=== PATIENT | female | born 1945 | race Caucasian/White ===

== ENCOUNTER 2017-07-20 11:22 | Outpatient (RCR) | payer MEDICARE, SELFPAY ==
[2017-07-20 14:32] LABS: Absolute Neutrophil Count 4.2 X10^3/uL (2.0-7.7); Basophil# 0.02 X10^3/uL; Basophil% 0.3 % (0-1); Eosinophil# 0.18 X10^3/uL; Hematocrit 38.8 % (37-47); Hemoglobin 12.3 g/dl (12.0-15.0); Lymphocyte % 18.1 % (19-41); Mean Corp Hgb Conc 31.7 g/gl (32-36); Mean Corpuscular Hgb 32.8 pg (27.0-32.0); Mean Corpuscular Volume 103.5 fL (81-99); Mean Platelet Vol. 9.4 fl (6.2-12.0); Monocyte# 0.61 X10^3/uL; Neutrophil # 4.16 X10^3/uL (2.7-7.7); Neutrophil % 68.4 % (47-70); Platelet Count 278 K/mm3 (150-450); RBC Distribution Width CV 14.7 % (11.6-14.6); RBC Distribution Width SD 56.1 fl (35.1-43.9); Red Blood Count 3.75 M/mm3 (4.2-5.4); White Blood Count 6.1 K/mm3 (4.4-11.0)
[2017-07-20 14:35] LABS: POSITIVE COUNT NO; POSITIVE DIFFERENTIAL NO; POSITIVE MORPHOLOGY NO
[2017-07-20 14:58] LABS: ALB/GLOB Ratio 0.8 RATIO (0.9-2.4); AST(SGOT) 19 U/L (15-37); Alanine Aminotransfer ALT/SGPT 17 U/L (13-56); Albumin, Serum 3.2 g/dL (3.2-5.0); Alkaline Phosphatase 61 U/L (45-117); Anion Gap 8 (5-15); BUN 12 mg/dL (7-18); BUN/Creat Ratio 12.2 RATIO (10-20); Calcium,Total 8.7 mg/dL (8.5-10.1); Chloride 100 mmol/L (98-107); Creatinine, Serum 0.98 mg/dL (0.55-1.02); EST Glomerular Filtration Rate 59 mL/min (>60); Est Glom Filt Rate - Afr Amer 72 mL/min (>60); Globulin 4.2 g/dL (2.2-4.2); Glucose 97 mg/dL (74-106); Potassium 3.4 mmol/L (3.5-5.1); Protein, Total 7.4 g/dL (6.4-8.2); Sodium Level 138 mmol/L (136-145)
== END 2017-07-20 12:00 | disposition home or self-care (01) ==
LOC: MTLAB 11:22
PROVIDERS: Visit Provider Internal Medicine Rheumatology
DX: M06.4 Inflammatory polyarthropathy (principal); Z79.899 Other long term (current) drug therapy; M17.0 Bilateral primary osteoarthritis of knee; M47.897 Other spondylosis, lumbosacral region; G47.33 Obstructive sleep apnea (adult) (pediatric); I48.91 Unspecified atrial fibrillation; I10 Essential (primary) hypertension
CPT/HCPCS: 36415; 80053; 85025

== ENCOUNTER → 2017-10-25 11:29 | Outpatient (CLI) | payer MEDICARE, SELFPAY ==
[2017-10-25 14:55] LABS: Absolute Lymphocyte Count 1.16 X10^3/ul (0.83-4.51); Absolute Neutrophil Count 4.8 X10^3/uL (2.0-7.7); Basophil# 0.02 X10^3/uL; Basophil% 0.3 % (0-1); Eosinophil# 0.22 X10^3/uL; Eosinophils% 3.2 % (0-5); Hematocrit 37.7 % (37-47); Lymphocyte # 1.16 X10^3/ul (4.0); Lymphocyte % 16.9 % (19-41); Mean Corp Hgb Conc 31.8 g/gl (32-36); Mean Corpuscular Hgb 32.4 pg (27.0-32.0); Mean Corpuscular Volume 101.9 fL (81-99); Mean Platelet Vol. 9.4 fl (6.2-12.0); Monocyte# 0.64 X10^3/uL; Monocyte% 9.3 % (0-10); Neutrophil % 70.2 % (47-70); Platelet Count 245 K/mm3 (150-450); RBC Distribution Width CV 15.2 % (11.6-14.6); White Blood Count 6.9 K/mm3 (4.4-11.0)
[2017-10-25 14:57] LABS: POSITIVE COUNT NO; POSITIVE DIFFERENTIAL NO; POSITIVE MORPHOLOGY NO
[2017-10-25 15:17] LABS: ALB/GLOB Ratio 0.8 RATIO (0.9-2.4); AST(SGOT) 18 U/L (15-37); Alanine Aminotransfer ALT/SGPT 20 U/L (13-56); Albumin, Serum 3.1 g/dL (3.2-5.0); Alkaline Phosphatase 56 U/L (45-117); Anion Gap 8 (5-15); BUN 12 mg/dL (7-18); BUN/Creat Ratio 11.5 RATIO (10-20); Chloride 103 mmol/L (98-107); Creatinine, Serum 1.04 mg/dL (0.55-1.02); EST Glomerular Filtration Rate 56 mL/min (>60); Est Glom Filt Rate - Afr Amer 67 mL/min (>60); Globulin 4.1 g/dL (2.2-4.2); Glucose 108 mg/dL (74-106); Potassium 3.5 mmol/L (3.5-5.1); Protein, Total 7.2 g/dL (6.4-8.2); Sodium Level 142 mmol/L (136-145)
== END ==
PROVIDERS: Visit Provider Internal Medicine Rheumatology
DX: M06.4 Inflammatory polyarthropathy (principal); M17.0 Bilateral primary osteoarthritis of knee; M47.897 Other spondylosis, lumbosacral region; I48.91 Unspecified atrial fibrillation; I10 Essential (primary) hypertension; M79.7 Fibromyalgia; G47.33 Obstructive sleep apnea (adult) (pediatric); Z79.899 Other long term (current) drug therapy
CPT/HCPCS: 36415; 80053; 85025

== ENCOUNTER → 2018-01-26 12:13 | Outpatient (CLI) | payer MEDICARE, SELFPAY ==
[2018-01-26 14:18] LABS: Absolute Lymphocyte Count 1.63 X10^3/ul (0.83-4.51); Absolute Neutrophil Count 4.1 X10^3/uL (2.0-7.7); Basophil# 0.04 X10^3/uL; Basophil% 0.6 % (0-1); Eosinophil# 0.23 X10^3/uL; Eosinophils% 3.4 % (0-5); Hematocrit 37.1 % (37-47); Hemoglobin 12.5 g/dl (12.0-15.0); Lymphocyte # 1.63 X10^3/ul (4.0); Lymphocyte % 24.2 % (19-41); Mean Corp Hgb Conc 33.7 g/gl (32-36); Mean Corpuscular Hgb 33.9 pg (27.0-32.0); Mean Corpuscular Volume 100.5 fL (81-99); Mean Platelet Vol. 9.5 fl (6.2-12.0); Monocyte# 0.71 X10^3/uL; Monocyte% 10.5 % (0-10); Platelet Count 328 K/mm3 (150-450); RBC Distribution Width CV 14.7 % (11.6-14.6); RBC Distribution Width SD 52.2 fl (35.1-43.9); Red Blood Count 3.69 M/mm3 (4.2-5.4); White Blood Count 6.7 K/mm3 (4.4-11.0)
[2018-01-26 14:19] LABS: POSITIVE COUNT NO; POSITIVE DIFFERENTIAL NO; POSITIVE MORPHOLOGY NO
[2018-01-26 14:35] LABS: ALB/GLOB Ratio 0.8 RATIO (0.9-2.4); AST(SGOT) 15 U/L (15-37); Alanine Aminotransfer ALT/SGPT 21 U/L (13-56); Albumin, Serum 3.2 g/dL (3.2-5.0); Alkaline Phosphatase 53 U/L (45-117); Anion Gap 10 (5-15); BUN 11 mg/dL (7-18); BUN/Creat Ratio 11.3 RATIO (10-20); Calcium,Total 9.2 mg/dL (8.5-10.1); Chloride 102 mmol/L (98-107); Creatinine, Serum 0.97 mg/dL (0.55-1.02); EST Glomerular Filtration Rate 60 mL/min (>60); Est Glom Filt Rate - Afr Amer 73 mL/min (>60); Globulin 4.2 g/dL (2.2-4.2); Glucose 97 mg/dL (74-106); Potassium 3.5 mmol/L (3.5-5.1); Protein, Total 7.4 g/dL (6.4-8.2); Sodium Level 141 mmol/L (136-145)
== END ==
PROVIDERS: Referring Provider Internal Medicine Rheumatology; Visit Provider Internal Medicine Rheumatology
DX: M06.4 Inflammatory polyarthropathy (principal); M79.7 Fibromyalgia; M17.0 Bilateral primary osteoarthritis of knee; M47.897 Other spondylosis, lumbosacral region; I48.91 Unspecified atrial fibrillation; I10 Essential (primary) hypertension; G47.33 Obstructive sleep apnea (adult) (pediatric); Z79.899 Other long term (current) drug therapy
CPT/HCPCS: 36415; 80053; 85025

== ENCOUNTER → 2018-05-13 12:59 | Outpatient (CLI) | payer MEDICARE, SELFPAY ==
[2018-05-13 13:53] LABS: Absolute Lymphocyte Count 1.44 X10^3/ul (0.83-4.51); Absolute Neutrophil Count 4.7 X10^3/uL (2.0-7.7); Basophil# 0.03 X10^3/uL; Basophil% 0.4 % (0-1); Eosinophil# 0.28 X10^3/uL; Eosinophils% 3.9 % (0-5); Hematocrit 37.7 % (37-47); Hemoglobin 12.2 g/dl (12.0-15.0); Lymphocyte # 1.44 X10^3/ul (4.0); Lymphocyte % 20.3 % (19-41); Mean Corp Hgb Conc 32.4 g/gl (32-36); Mean Corpuscular Hgb 33.7 pg (27.0-32.0); Mean Corpuscular Volume 104.1 fL (81-99); Mean Platelet Vol. 9.5 fl (6.2-12.0); Monocyte# 0.66 X10^3/uL; Monocyte% 9.3 % (0-10); Neutrophil # 4.68 X10^3/uL (2.7-7.7); Neutrophil % 65.8 % (47-70); Platelet Count 290 K/mm3 (150-450); RBC Distribution Width SD 56.7 fl (35.1-43.9); Red Blood Count 3.62 M/mm3 (4.2-5.4); White Blood Count 7.1 K/mm3 (4.4-11.0)
[2018-05-13 13:55] LABS: POSITIVE COUNT NO; POSITIVE DIFFERENTIAL NO; POSITIVE MORPHOLOGY NO
[2018-05-13 14:17] LABS: ALB/GLOB Ratio 0.8 RATIO (0.9-2.4); AST(SGOT) 15 U/L (15-37); Alanine Aminotransfer ALT/SGPT 16 U/L (13-56); Albumin, Serum 3.3 g/dL (3.2-5.0); Alkaline Phosphatase 59 U/L (45-117); Anion Gap 6 (5-15); BUN 13 mg/dL (7-18); Calcium,Total 8.9 mg/dL (8.5-10.1); Chloride 104 mmol/L (98-107); EST Glomerular Filtration Rate 58 mL/min (>60); Est Glom Filt Rate - Afr Amer 70 mL/min (>60); Globulin 4.2 g/dL (2.2-4.2); Glucose 107 mg/dL (74-106); Potassium 4.1 mmol/L (3.5-5.1); Protein, Total 7.5 g/dL (6.4-8.2); Sodium Level 140 mmol/L (136-145)
== END ==
PROVIDERS: Referring Provider Internal Medicine Rheumatology; Visit Provider Internal Medicine Rheumatology
DX: M06.4 Inflammatory polyarthropathy (principal); M79.7 Fibromyalgia; M17.0 Bilateral primary osteoarthritis of knee; M47.897 Other spondylosis, lumbosacral region; I48.91 Unspecified atrial fibrillation; I10 Essential (primary) hypertension; G47.33 Obstructive sleep apnea (adult) (pediatric); Z79.899 Other long term (current) drug therapy
CPT/HCPCS: 36415; 80053; 85025

== ENCOUNTER → 2018-07-29 09:00 | Outpatient (CLI) | payer MEDICARE, SELFPAY ==
[2018-07-29 10:13] LABS: Absolute Lymphocyte Count 1.86 X10^3/ul (0.83-4.51); Absolute Neutrophil Count 4.2 X10^3/uL (2.0-7.7); Basophil# 0.05 X10^3/uL; Basophil% 0.7 % (0-1); Eosinophil# 0.27 X10^3/uL; Hematocrit 37.7 % (37-47); Hemoglobin 12.3 g/dl (12.0-15.0); Lymphocyte # 1.86 X10^3/ul (4.0); Lymphocyte % 27.8 % (19-41); Mean Corp Hgb Conc 32.6 g/gl (32-36); Mean Corpuscular Hgb 33.8 pg (27.0-32.0); Mean Corpuscular Volume 103.6 fL (81-99); Mean Platelet Vol. 9.8 fl (6.2-12.0); Monocyte% 4.5 % (0-10); Neutrophil # 4.18 X10^3/uL (2.7-7.7); Neutrophil % 62.7 % (47-70); POSITIVE COUNT NO; POSITIVE DIFFERENTIAL NO; POSITIVE MORPHOLOGY NO; Platelet Count 260 K/mm3 (150-450); RBC Distribution Width CV 14.7 % (11.6-14.6); RBC Distribution Width SD 55.6 fl (35.1-43.9); Red Blood Count 3.64 M/mm3 (4.2-5.4); White Blood Count 6.7 K/mm3 (4.4-11.0)
[2018-07-29 10:27] LABS: Albumin, Serum 3.3 g/dL (3.2-5.0); BUN 14 mg/dL (7-18); BUN/Creat Ratio 12.4 RATIO (10-20); Creatinine, Serum 1.13 mg/dL (0.55-1.02); EST Glomerular Filtration Rate 50 mL/min (>60); Est Glom Filt Rate - Afr Amer 61 mL/min (>60); Globulin 3.9 g/dL (2.2-4.2); Glucose 134 mg/dL (74-106); Protein, Total 7.2 g/dL (6.4-8.2)
[2018-07-29 10:28] LABS: ALB/GLOB Ratio 0.8 RATIO (0.9-2.4); AST(SGOT) 20 U/L (15-37); Alanine Aminotransfer ALT/SGPT 21 U/L (13-56); Alkaline Phosphatase 55 U/L (45-117); Anion Gap 8 (5-15); Chloride 104 mmol/L (98-107); Potassium 3.8 mmol/L (3.5-5.1); Sodium Level 143 mmol/L (136-145)
== END ==
PROVIDERS: Referring Provider Internal Medicine Rheumatology; Visit Provider Internal Medicine Rheumatology
DX: M06.4 Inflammatory polyarthropathy (principal); M17.0 Bilateral primary osteoarthritis of knee; M47.897 Other spondylosis, lumbosacral region; I48.91 Unspecified atrial fibrillation; M79.7 Fibromyalgia; I10 Essential (primary) hypertension; G47.33 Obstructive sleep apnea (adult) (pediatric); Z79.899 Other long term (current) drug therapy
CPT/HCPCS: 36415; 80053; 85025

== ENCOUNTER → 2018-09-22 13:39 | Outpatient (CLI) | payer MEDICARE, SELFPAY ==
[2018-09-22 15:45] LABS: Absolute Lymphocyte Count 1.91 X10^3/ul (0.83-4.51); Absolute Neutrophil Count 4.3 X10^3/uL (2.0-7.7); Basophil# 0.06 X10^3/uL; Basophil% 0.8 % (0-1); Eosinophil# 0.21 X10^3/uL; Eosinophils% 2.9 % (0-5); Hematocrit 36.9 % (37-47); Lymphocyte # 1.91 X10^3/ul (4.0); Lymphocyte % 26.7 % (19-41); Mean Corp Hgb Conc 32.5 g/gl (32-36); Mean Corpuscular Hgb 33.3 pg (27.0-32.0); Mean Corpuscular Volume 102.5 fL (81-99); Mean Platelet Vol. 9.4 fl (6.2-12.0); Monocyte# 0.64 X10^3/uL; Neutrophil # 4.32 X10^3/uL (2.7-7.7); Neutrophil % 60.5 % (47-70); Platelet Count 252 K/mm3 (150-450); RBC Distribution Width CV 14.8 % (11.6-14.6); RBC Distribution Width SD 54.7 fl (35.1-43.9); White Blood Count 7.2 K/mm3 (4.4-11.0)
[2018-09-22 15:53] LABS: POSITIVE COUNT NO; POSITIVE DIFFERENTIAL NO; POSITIVE MORPHOLOGY NO
[2018-09-22 16:06] LABS: ALB/GLOB Ratio 0.7 RATIO (0.9-2.4); AST(SGOT) 14 U/L (15-37); Alanine Aminotransfer ALT/SGPT 21 U/L (13-56); Alkaline Phosphatase 56 U/L (45-117); Anion Gap 5 (5-15); BUN 16 mg/dL (7-18); BUN/Creat Ratio 15.4 RATIO (10-20); Calcium,Total 8.9 mg/dL (8.5-10.1); Chloride 103 mmol/L (98-107); Creatinine, Serum 1.04 mg/dL (0.55-1.02); EST Glomerular Filtration Rate 56 mL/min (>60); Est Glom Filt Rate - Afr Amer 67 mL/min (>60); Globulin 4.1 g/dL (2.2-4.2); Glucose 80 mg/dL (74-106); Potassium 3.8 mmol/L (3.5-5.1); Protein, Total 7.1 g/dL (6.4-8.2); Sodium Level 141 mmol/L (136-145)
== END ==
PROVIDERS: Referring Provider Internal Medicine Rheumatology; Visit Provider Internal Medicine Rheumatology
DX: M06.4 Inflammatory polyarthropathy (principal); M79.7 Fibromyalgia; M17.0 Bilateral primary osteoarthritis of knee; M47.897 Other spondylosis, lumbosacral region; I48.91 Unspecified atrial fibrillation; I10 Essential (primary) hypertension; G47.33 Obstructive sleep apnea (adult) (pediatric); Z79.899 Other long term (current) drug therapy
CPT/HCPCS: 36415; 80053; 85025

== ENCOUNTER → 2018-12-19 10:52 | Outpatient (CLI) | payer MEDICARE, SELFPAY ==
[2018-12-19 12:16] LABS: Absolute Lymphocyte Count 1.12 X10^3/uL (0.83-4.51); Absolute Neutrophil Count 5.4 X10^3/uL (2.0-7.7); Basophil# 0.05 X10^3/uL; Basophil% 0.7 % (0-1); Eosinophil# 0.22 X10^3/uL; Hematocrit 36.5 % (37-47); Hemoglobin 12.4 g/dL (12.0-15.0); Lymphocyte # 1.12 X10^3/ul (4.0); Lymphocyte % 15.3 % (19-41); Mean Corpuscular Hgb 35.2 pg (27.0-32.0); Mean Corpuscular Volume 103.7 fL (81-99); Mean Platelet Vol. 9.5 fl (6.2-12.0); Monocyte# 0.55 X10^3/uL; Monocyte% 7.5 % (0-10); NRBC Flagged by Analyzer 0 % (0-5); Neutrophil # 5.36 X10^3/uL (2.7-7.7); Neutrophil % 73.2 % (47-70); Platelet Count 235 K/mm3 (150-450); RBC Distribution Width CV 13.8 % (11.6-14.6); RBC Distribution Width SD 52.9 fl (35.1-43.9); Red Blood Count 3.52 M/mm3 (4.2-5.4); White Blood Count 7.3 K/mm3 (4.4-11.0)
[2018-12-19 12:38] LABS: ALB/GLOB Ratio 0.8 RATIO (0.9-2.4); AST(SGOT) 15 U/L (15-37); Alanine Aminotransfer ALT/SGPT 16 U/L (13-56); Albumin, Serum 3.2 g/dL (3.2-5.0); Alkaline Phosphatase 62 U/L (45-117); Anion Gap 3 (5-15); BUN 17 mg/dL (7-18); BUN/Creat Ratio 16.5 RATIO (10-20); Calcium,Total 8.8 mg/dL (8.5-10.1); Chloride 106 mmol/L (98-107); Creatinine, Serum 1.03 mg/dL (0.55-1.02); EST Glomerular Filtration Rate 56 mL/min (>60); Est Glom Filt Rate - Afr Amer 68 mL/min (>60); Globulin 4.2 g/dL (2.2-4.2); Glucose 102 mg/dL (74-106); Potassium 3.6 mmol/L (3.5-5.1); Protein, Total 7.4 g/dL (6.4-8.2); Sodium Level 141 mmol/L (136-145)
== END ==
PROVIDERS: Family Provider Internal Medicine Cardiovascular Disease; PCP Internal Medicine Cardiovascular Disease; Referring Provider Internal Medicine Rheumatology; Visit Provider Internal Medicine Rheumatology
DX: M06.4 Inflammatory polyarthropathy (principal); M17.0 Bilateral primary osteoarthritis of knee; M47.897 Other spondylosis, lumbosacral region; M79.7 Fibromyalgia; I48.91 Unspecified atrial fibrillation; I10 Essential (primary) hypertension; G47.33 Obstructive sleep apnea (adult) (pediatric); Z79.899 Other long term (current) drug therapy
CPT/HCPCS: 36415; 80053; 85025

== ENCOUNTER → 2019-03-23 12:35 | Outpatient (CLI) | payer MEDICARE, SELFPAY ==
[2019-03-23 15:30] LABS: Absolute Lymphocyte Count 1.78 X10^3/uL (0.83-4.51); Absolute Neutrophil Count 5.8 X10^3/uL (2.0-7.7); Basophil# 0.05 X10^3/uL; Basophil% 0.6 % (0-1); Eosinophil# 0.17 X10^3/uL; Hematocrit 37.3 % (37-47); Lymphocyte # 1.78 X10^3/ul (4.0); Lymphocyte % 20.8 % (19-41); Mean Corp Hgb Conc 32.2 g/dL (32-36); Mean Corpuscular Hgb 33.8 pg (27.0-32.0); Mean Corpuscular Volume 105.1 fL (81-99); Mean Platelet Vol. 9.9 fl (6.2-12.0); Monocyte# 0.71 X10^3/uL; Monocyte% 8.3 % (0-10); NRBC Flagged by Analyzer 0.4 % (0-5); Neutrophil % 67.7 % (47-70); Platelet Count 324 K/mm3 (150-450); RBC Distribution Width CV 14.6 % (11.6-14.6); RBC Distribution Width SD 56.6 fl (35.1-43.9); Red Blood Count 3.55 M/mm3 (4.2-5.4); White Blood Count 8.6 K/mm3 (4.4-11.0)
[2019-03-23 15:57] LABS: ALB/GLOB Ratio 0.9 RATIO (0.9-2.4); AST(SGOT) 19 U/L (15-37); Alanine Aminotransfer ALT/SGPT 20 U/L (13-56); Albumin, Serum 3.4 g/dL (3.2-5.0); Alkaline Phosphatase 55 U/L (45-117); Anion Gap 8 (5-15); BUN 15 mg/dL (7-18); BUN/Creat Ratio 15.2 RATIO (10-20); Calcium,Total 9.1 mg/dL (8.5-10.1); Chloride 101 mmol/L (98-107); Creatinine, Serum 0.99 mg/dL (0.55-1.02); EST Glomerular Filtration Rate 59 mL/min (>60); Est Glom Filt Rate - Afr Amer 71 mL/min (>60); Globulin 3.9 g/dL (2.2-4.2); Glucose 77 mg/dL (74-106); Potassium 3.5 mmol/L (3.5-5.1); Protein, Total 7.3 g/dL (6.4-8.2); Sodium Level 140 mmol/L (136-145)
== END ==
PROVIDERS: Family Provider Internal Medicine Cardiovascular Disease; PCP Internal Medicine Cardiovascular Disease; Referring Provider Internal Medicine Rheumatology; Visit Provider Internal Medicine Rheumatology
DX: M06.4 Inflammatory polyarthropathy (principal); M17.0 Bilateral primary osteoarthritis of knee; M47.897 Other spondylosis, lumbosacral region; I48.91 Unspecified atrial fibrillation; I10 Essential (primary) hypertension; G47.33 Obstructive sleep apnea (adult) (pediatric); M79.7 Fibromyalgia; Z79.899 Other long term (current) drug therapy
CPT/HCPCS: 36415; 80053; 85025

== ENCOUNTER → 2019-06-14 12:39 | Outpatient (CLI) | payer MEDICARE, SELFPAY ==
[2019-06-14 14:14] LABS: Absolute Neutrophil Count 5.7 X10^3/uL (2.0-7.7); Basophil# 0.05 X10^3/uL; Basophil% 0.6 % (0-1); Eosinophil# 0.23 X10^3/uL; Eosinophils% 2.8 % (0-5); Hematocrit 39.2 % (37-47); Lymphocyte % 20.4 % (19-41); Mean Corp Hgb Conc 33.2 g/dL (32-36); Mean Corpuscular Hgb 34.3 pg (27.0-32.0); Mean Corpuscular Volume 103.4 fL (81-99); Mean Platelet Vol. 9.4 fl (6.2-12.0); Monocyte# 0.59 X10^3/uL; Monocyte% 7.1 % (0-10); NRBC Flagged by Analyzer 0.2 % (0-5); Neutrophil # 5.74 X10^3/uL (2.7-7.7); Neutrophil % 68.7 % (47-70); Platelet Count 298 K/mm3 (150-450); RBC Distribution Width CV 14.5 % (11.6-14.6); RBC Distribution Width SD 55.4 fl (35.1-43.9); Red Blood Count 3.79 M/mm3 (4.2-5.4); White Blood Count 8.3 K/mm3 (4.4-11.0)
[2019-06-14 14:28] LABS: ALB/GLOB Ratio 0.8 RATIO (0.9-2.4); AST(SGOT) 21 U/L (15-37); Alanine Aminotransfer ALT/SGPT 25 U/L (13-56); Albumin, Serum 3.3 g/dL (3.2-5.0); Alkaline Phosphatase 62 U/L (45-117); Anion Gap 4 (5-15); BUN 18 mg/dL (7-18); Calcium,Total 9.3 mg/dL (8.5-10.1); Chloride 103 mmol/L (98-107); Creatinine, Serum 1.06 mg/dL (0.55-1.02); EST Glomerular Filtration Rate 54 mL/min (>60); Est Glom Filt Rate - Afr Amer 66 mL/min (>60); Globulin 4.2 g/dL (2.2-4.2); Glucose 81 mg/dL (74-106); Potassium 3.7 mmol/L (3.5-5.1); Protein, Total 7.5 g/dL (6.4-8.2); Sodium Level 139 mmol/L (136-145)
== END ==
PROVIDERS: PCP Internal Medicine Cardiovascular Disease; Referring Provider Internal Medicine Rheumatology; Visit Provider Internal Medicine Rheumatology
DX: M06.4 Inflammatory polyarthropathy (principal); Z79.899 Other long term (current) drug therapy; M79.7 Fibromyalgia; M25.512 Pain in left shoulder; M17.0 Bilateral primary osteoarthritis of knee; M47.897 Other spondylosis, lumbosacral region; G47.33 Obstructive sleep apnea (adult) (pediatric); I48.91 Unspecified atrial fibrillation; I10 Essential (primary) hypertension
CPT/HCPCS: 36415; 80053; 85025

== ENCOUNTER → 2019-09-06 11:41 | Outpatient (CLI) | payer MEDICARE, SELFPAY ==
[2019-09-06 15:30] LABS: Absolute Lymphocyte Count 1.43 X10^3/uL (0.83-4.51); Absolute Neutrophil Count 6.9 X10^3/uL (2.0-7.7); Basophil# 0.03 X10^3/uL; Basophil% 0.3 % (0-1); Eosinophil# 0.14 X10^3/uL; Eosinophils% 1.5 % (0-5); Hematocrit 39.1 % (37-47); Hemoglobin 12.9 g/dL (12.0-15.0); Lymphocyte # 1.43 X10^3/ul (4.0); Lymphocyte % 15.2 % (19-41); Mean Corpuscular Hgb 34.7 pg (27.0-32.0); Mean Corpuscular Volume 105.1 fL (81-99); Mean Platelet Vol. 9.9 fl (6.2-12.0); Monocyte# 0.86 X10^3/uL; Monocyte% 9.1 % (0-10); NRBC Flagged by Analyzer 0 % (0-5); Neutrophil # 6.92 X10^3/uL (2.7-7.7); Neutrophil % 73.5 % (47-70); Platelet Count 287 K/mm3 (150-450); RBC Distribution Width CV 13.8 % (11.6-14.6); RBC Distribution Width SD 52.9 fl (35.1-43.9); Red Blood Count 3.72 M/mm3 (4.2-5.4); White Blood Count 9.4 K/mm3 (4.4-11.0)
[2019-09-06 15:58] LABS: ALB/GLOB Ratio 0.7 RATIO (0.9-2.4); AST(SGOT) 16 U/L (15-37); Alanine Aminotransfer ALT/SGPT 19 U/L (13-56); Albumin, Serum 3.2 g/dL (3.2-5.0); Alkaline Phosphatase 59 U/L (45-117); Anion Gap 7 (5-15); BUN 16 mg/dL (7-18); BUN/Creat Ratio 13.8 RATIO (10-20); Calcium,Total 9.3 mg/dL (8.5-10.1); Chloride 100 mmol/L (98-107); Creatinine, Serum 1.16 mg/dL (0.55-1.02); EST Glomerular Filtration Rate 49 mL/min (>60); Est Glom Filt Rate - Afr Amer 59 mL/min (>60); Globulin 4.3 g/dL (2.2-4.2); Glucose 81 mg/dL (74-106); Potassium 3.2 mmol/L (3.5-5.1); Protein, Total 7.5 g/dL (6.4-8.2); Sodium Level 138 mmol/L (136-145)
== END ==
PROVIDERS: Referring Provider Internal Medicine Rheumatology; Visit Provider Internal Medicine Rheumatology
DX: M06.4 Inflammatory polyarthropathy (principal); M79.7 Fibromyalgia; M25.512 Pain in left shoulder; M17.0 Bilateral primary osteoarthritis of knee; M47.897 Other spondylosis, lumbosacral region; G47.33 Obstructive sleep apnea (adult) (pediatric); I48.91 Unspecified atrial fibrillation; I10 Essential (primary) hypertension; Z79.899 Other long term (current) drug therapy
CPT/HCPCS: 36415; 80053; 85025

== ENCOUNTER → 2019-11-23 11:25 | Outpatient (CLI) | payer MEDICARE, SELFPAY ==
[2019-11-23 15:06] LABS: Absolute Neutrophil Count 4.6 X10^3/uL (2.0-7.7); Basophil# 0.05 X10^3/uL; Basophil% 0.7 % (0-1); Eosinophil# 0.22 X10^3/uL; Hematocrit 38.1 % (37-47); Hemoglobin 12.1 g/dL (12.0-15.0); Lymphocyte % 24.9 % (19-41); Mean Corp Hgb Conc 31.8 g/dL (32-36); Mean Corpuscular Hgb 33.3 pg (27.0-32.0); Mean Platelet Vol. 9.9 fl (6.2-12.0); Monocyte# 0.56 X10^3/uL; Monocyte% 7.7 % (0-10); NRBC Flagged by Analyzer 0.3 % (0-5); Neutrophil # 4.55 X10^3/uL (2.7-7.7); Neutrophil % 62.9 % (47-70); Platelet Count 319 K/mm3 (150-450); RBC Distribution Width SD 58.4 fl (35.1-43.9); Red Blood Count 3.63 M/mm3 (4.2-5.4); White Blood Count 7.2 K/mm3 (4.4-11.0)
[2019-11-23 15:24] LABS: ALB/GLOB Ratio 0.8 RATIO (0.9-2.4); AST(SGOT) 12 U/L (15-37); Alanine Aminotransfer ALT/SGPT 17 U/L (13-56); Albumin, Serum 3.1 g/dL (3.2-5.0); Alkaline Phosphatase 52 U/L (45-117); Anion Gap 5 (5-15); BUN 13 mg/dL (7-18); BUN/Creat Ratio 12.4 RATIO (10-20); Chloride 106 mmol/L (98-107); Creatinine, Serum 1.05 mg/dL (0.55-1.02); EST Glomerular Filtration Rate 55 mL/min (>60); Est Glom Filt Rate - Afr Amer 66 mL/min (>60); Globulin 3.9 g/dL (2.2-4.2); Glucose 122 mg/dL (74-106); Potassium 3.4 mmol/L (3.5-5.1); Sodium Level 140 mmol/L (136-145)
== END ==
PROVIDERS: Visit Provider Internal Medicine Rheumatology
DX: M06.4 Inflammatory polyarthropathy (principal); M79.7 Fibromyalgia; M25.512 Pain in left shoulder; M17.0 Bilateral primary osteoarthritis of knee; M47.897 Other spondylosis, lumbosacral region; G47.33 Obstructive sleep apnea (adult) (pediatric); I48.91 Unspecified atrial fibrillation; I10 Essential (primary) hypertension; Z79.899 Other long term (current) drug therapy
CPT/HCPCS: 36415; 80053; 85025

== ENCOUNTER → 2020-02-08 12:18 | Outpatient (CLI) | payer MEDICARE, SELFPAY ==
[2020-02-08 15:26] LABS: ALB/GLOB Ratio 0.8 RATIO (0.9-2.4); AST(SGOT) 17 U/L (15-37); Alanine Aminotransfer ALT/SGPT 19 U/L (13-56); Albumin, Serum 3.2 g/dL (3.2-5.0); Alkaline Phosphatase 55 U/L (45-117); Anion Gap 6 (5-15); BUN 18 mg/dL (7-18); BUN/Creat Ratio 16.8 RATIO (10-20); Calcium,Total 9.1 mg/dL (8.5-10.1); Chloride 105 mmol/L (98-107); Creatinine, Serum 1.07 mg/dL (0.55-1.02); EST Glomerular Filtration Rate 54 mL/min (>60); Est Glom Filt Rate - Afr Amer 65 mL/min (>60); Globulin 4.1 g/dL (2.2-4.2); Glucose 104 mg/dL (74-106); Potassium 3.5 mmol/L (3.5-5.1); Protein, Total 7.3 g/dL (6.4-8.2); Sodium Level 141 mmol/L (136-145)
[2020-02-08 17:38] LABS: Absolute Lymphocyte Count 1.62 X10^3/uL (0.83-4.51); Absolute Neutrophil Count 5.6 X10^3/uL (2.0-7.7); Basophil# 0.07 X10^3/uL; Basophil% 0.9 % (0-1); Hematocrit 39.1 % (37-47); Hemoglobin 12.9 g/dL (12.0-15.0); Lymphocyte # 1.62 X10^3/ul (4.0); Lymphocyte % 20.3 % (19-41); Mean Corpuscular Hgb 34.2 pg (27.0-32.0); Mean Corpuscular Volume 103.7 fL (81-99); Mean Platelet Vol. 10.1 fl (6.2-12.0); Monocyte# 0.66 X10^3/uL; Monocyte% 8.3 % (0-10); NRBC Flagged by Analyzer 0 % (0-5); Neutrophil # 5.55 X10^3/uL (2.7-7.7); Neutrophil % 69.5 % (47-70); Platelet Count 289 K/mm3 (150-450); RBC Distribution Width CV 14.5 % (11.6-14.6); RBC Distribution Width SD 55.2 fl (35.1-43.9); Red Blood Count 3.77 M/mm3 (4.2-5.4)
== END ==
PROVIDERS: Referring Provider Internal Medicine Rheumatology; Visit Provider Internal Medicine Rheumatology
DX: M06.4 Inflammatory polyarthropathy (principal); M79.7 Fibromyalgia; M25.512 Pain in left shoulder; M17.0 Bilateral primary osteoarthritis of knee; M47.897 Other spondylosis, lumbosacral region; G47.33 Obstructive sleep apnea (adult) (pediatric); I48.91 Unspecified atrial fibrillation; I10 Essential (primary) hypertension; Z79.899 Other long term (current) drug therapy
CPT/HCPCS: 36415; 80053; 85025

== ENCOUNTER → 2020-05-10 10:38 | Outpatient (CLI) | payer MEDICARE, SELFPAY ==
[2020-05-10 12:31] LABS: Absolute Lymphocyte Count 1.63 X10^3/uL (0.83-4.51); Absolute Neutrophil Count 4.8 X10^3/uL (2.0-7.7); Basophil# 0.05 X10^3/uL; Basophil% 0.7 % (0-1); Eosinophils% 2.7 % (0-5); Hematocrit 37.7 % (37-47); Lymphocyte # 1.63 X10^3/ul (4.0); Lymphocyte % 22.1 % (19-41); Mean Corp Hgb Conc 31.8 g/dL (32-36); Mean Corpuscular Volume 103.6 fL (81-99); Mean Platelet Vol. 9.7 fl (6.2-12.0); Monocyte# 0.68 X10^3/uL; Monocyte% 9.2 % (0-10); NRBC Flagged by Analyzer 0.3 % (0-5); Neutrophil # 4.79 X10^3/uL (2.7-7.7); Neutrophil % 64.9 % (47-70); Platelet Count 286 K/mm3 (150-450); RBC Distribution Width CV 14.1 % (11.6-14.6); RBC Distribution Width SD 53.2 fl (35.1-43.9); Red Blood Count 3.64 M/mm3 (4.2-5.4); White Blood Count 7.4 K/mm3 (4.4-11.0)
[2020-05-10 12:57] LABS: ALB/GLOB Ratio 0.9 RATIO (0.9-2.4); AST(SGOT) 16 U/L (15-37); Alanine Aminotransfer ALT/SGPT 17 U/L (13-56); Albumin, Serum 3.2 g/dL (3.2-5.0); Alkaline Phosphatase 52 U/L (45-117); Anion Gap 6 (5-15); BUN 14 mg/dL (7-18); BUN/Creat Ratio 14.1 RATIO (10-20); Calcium,Total 8.8 mg/dL (8.5-10.1); Chloride 103 mmol/L (98-107); Creatinine, Serum 0.99 mg/dL (0.55-1.02); EST Glomerular Filtration Rate 58 mL/min (>60); Est Glom Filt Rate - Afr Amer 71 mL/min (>60); Globulin 3.7 g/dL (2.2-4.2); Glucose 86 mg/dL (74-106); Potassium 3.5 mmol/L (3.5-5.1); Protein, Total 6.9 g/dL (6.4-8.2); Sodium Level 140 mmol/L (136-145)
== END ==
PROVIDERS: Referring Provider Internal Medicine Rheumatology; Visit Provider Internal Medicine Rheumatology
DX: M06.4 Inflammatory polyarthropathy (principal); M79.7 Fibromyalgia; M17.0 Bilateral primary osteoarthritis of knee; M47.897 Other spondylosis, lumbosacral region; G47.33 Obstructive sleep apnea (adult) (pediatric); I48.91 Unspecified atrial fibrillation; I10 Essential (primary) hypertension; Z79.899 Other long term (current) drug therapy
CPT/HCPCS: 36415; 80053; 85025

== ENCOUNTER → 2020-07-25 13:00 | Outpatient (CLI) | payer MEDICARE, SELFPAY ==
[2020-07-25 15:24] LABS: Absolute Lymphocyte Count 1.64 X10^3/uL (0.83-4.51); Absolute Neutrophil Count 4.1 X10^3/uL (2.0-7.7); Basophil# 0.04 X10^3/uL; Basophil% 0.6 % (0-1); Eosinophil# 0.26 X10^3/uL; Eosinophils% 3.9 % (0-5); Hematocrit 39.1 % (37-47); Hemoglobin 12.8 g/dL (12.0-15.0); Lymphocyte # 1.64 X10^3/ul (4.0); Lymphocyte % 24.6 % (19-41); Mean Corp Hgb Conc 32.7 g/dL (32-36); Mean Corpuscular Hgb 33.2 pg (27.0-32.0); Mean Corpuscular Volume 101.3 fL (81-99); Mean Platelet Vol. 10.5 fl (6.2-12.0); NRBC Flagged by Analyzer 0 % (0-5); Neutrophil % 61.5 % (47-70); Platelet Count 268 K/mm3 (150-450); RBC Distribution Width CV 14.3 % (11.6-14.6); RBC Distribution Width SD 52.6 fl (35.1-43.9); Red Blood Count 3.86 M/mm3 (4.2-5.4); White Blood Count 6.7 K/mm3 (4.4-11.0)
[2020-07-25 15:39] LABS: ALB/GLOB Ratio 0.8 RATIO (0.9-2.4); AST(SGOT) 29 U/L (15-37); Alanine Aminotransfer ALT/SGPT 80 U/L (13-56); Albumin, Serum 3.4 g/dL (3.2-5.0); Alkaline Phosphatase 84 U/L (45-117); Anion Gap 5 (5-15); BUN 18 mg/dL (7-18); BUN/Creat Ratio 17.5 RATIO (10-20); Calcium,Total 9.3 mg/dL (8.5-10.1); Chloride 104 mmol/L (98-107); Creatinine, Serum 1.03 mg/dL (0.55-1.02); EST Glomerular Filtration Rate 56 mL/min (>60); Est Glom Filt Rate - Afr Amer 68 mL/min (>60); Globulin 4.2 g/dL (2.2-4.2); Glucose 94 mg/dL (74-106); Potassium 3.8 mmol/L (3.5-5.1); Protein, Total 7.6 g/dL (6.4-8.2); Sodium Level 141 mmol/L (136-145)
== END ==
PROVIDERS: Referring Provider Internal Medicine Rheumatology; Visit Provider Internal Medicine Rheumatology
DX: M06.4 Inflammatory polyarthropathy (principal); M79.7 Fibromyalgia; M17.0 Bilateral primary osteoarthritis of knee; M47.897 Other spondylosis, lumbosacral region; G47.33 Obstructive sleep apnea (adult) (pediatric); I48.91 Unspecified atrial fibrillation; I10 Essential (primary) hypertension; Z79.899 Other long term (current) drug therapy
CPT/HCPCS: 36415; 80053; 85025

== ENCOUNTER → 2020-08-22 13:38 | Outpatient (CLI) | payer MEDICARE, SELFPAY ==
[2020-08-22 15:48] LABS: ALB/GLOB Ratio 0.8 RATIO (0.9-2.4); AST(SGOT) 16 U/L (15-37); Alanine Aminotransfer ALT/SGPT 18 U/L (13-56); Albumin, Serum 3.4 g/dL (3.2-5.0); Alkaline Phosphatase 56 U/L (45-117); Anion Gap 5 (5-15); BUN 16 mg/dL (7-18); BUN/Creat Ratio 15.2 RATIO (10-20); Calcium,Total 9.5 mg/dL (8.5-10.1); Chloride 103 mmol/L (98-107); Creatinine, Serum 1.05 mg/dL (0.55-1.02); EST Glomerular Filtration Rate 55 mL/min (>60); Est Glom Filt Rate - Afr Amer 66 mL/min (>60); Globulin 4.1 g/dL (2.2-4.2); Glucose 94 mg/dL (74-106); Potassium 3.8 mmol/L (3.5-5.1); Protein, Total 7.5 g/dL (6.4-8.2); Sodium Level 139 mmol/L (136-145)
== END ==
PROVIDERS: PCP Family Medicine Sports Medicine; Referring Provider Internal Medicine Rheumatology; Visit Provider Internal Medicine Rheumatology
DX: M06.4 Inflammatory polyarthropathy (principal); M79.7 Fibromyalgia; M17.0 Bilateral primary osteoarthritis of knee; M47.897 Other spondylosis, lumbosacral region; G47.33 Obstructive sleep apnea (adult) (pediatric); I48.91 Unspecified atrial fibrillation; I10 Essential (primary) hypertension; Z79.899 Other long term (current) drug therapy
CPT/HCPCS: 36415; 80053

== ENCOUNTER → 2020-08-26 09:25 | Outpatient (CLI) | payer MEDICARE, SELFPAY ==
--- NOTE | 2020-08-26 09:29 | US_ITS ---
STUDY: ABDOMINAL ULTRASOUND - RIGHT UPPER QUADRANT REASON FOR VISIT: Female, 75 years old ELEVATED LIVER ENZYMES TECHNIQUE: Ultrasound evaluation of the right upper quadrant was performed with real-time and static delong-scale imaging. TECHNICAL QUALITY: Limited. Examination limited due to a combination of factors including obesity and bowel gas. COMPARISON: None. FINDINGS: Liver: The liver measures 14.1 cm. There is increased echogenicity consistent with fatty infiltration. The bile ducts are within normal limits. There is hepatic color flow. The direction of portal flow is hepatopetal. There is no demonstrated mass lesion. Gallbladder: There is a contracted gallbladder. The gallbladder wall measures 3 mm. There is a negative sonographic Rivas''s sign. There is no pericholecystic fluid. There are multiple echogenic structures within the gallbladder, consistent with multiple gallstones. Common Bile Duct (C.B.D.): The common bile duct measures 3 mm. Pancreas: Normal size of the head, body and tail of the pancreas. There is normal echogenicity of the pancreas. There is a 1.4 cm x 1 cm x 1.1cm cyst in the body of the pancreas. Right Kidney: Normal size of the right kidney. The right kidney measures 9.8 cm x 4.8 cm x 4.9 cm. Normal renal cortex. The right cortex measures 1 cm. There is no demonstrated renal mass or cyst. There is no right hydronephrosis. US/Liver IMPRESSION: Fatty infiltration of the liver. Contracted stone filled gallbladder. Electronically Signed: Royer Shah MD at 10:39 EDT , Service support ,
== END ==
PROVIDERS: PCP Family Medicine Sports Medicine; Referring Provider Internal Medicine Rheumatology; Visit Provider Internal Medicine Rheumatology
DX: M06.4 Inflammatory polyarthropathy (principal); M79.7 Fibromyalgia; M17.0 Bilateral primary osteoarthritis of knee; M47.897 Other spondylosis, lumbosacral region; G47.33 Obstructive sleep apnea (adult) (pediatric); I48.91 Unspecified atrial fibrillation; I10 Essential (primary) hypertension; Z79.899 Other long term (current) drug therapy
CPT/HCPCS: 76705

== ENCOUNTER → 2020-09-02 11:44 | Outpatient (CLI) | payer MEDICARE, SELFPAY ==
[2020-09-02 15:41] LABS: Erythrocyte Sedimentation Rate 6 mm/hr (0-30)
== END ==
PROVIDERS: PCP Family Medicine Sports Medicine; Referring Provider Internal Medicine Rheumatology; Visit Provider Internal Medicine Rheumatology
DX: M06.4 Inflammatory polyarthropathy (principal); M79.7 Fibromyalgia; M17.0 Bilateral primary osteoarthritis of knee; M47.897 Other spondylosis, lumbosacral region; K76.0 Fatty (change of) liver, not elsewhere classified; G47.33 Obstructive sleep apnea (adult) (pediatric); I48.91 Unspecified atrial fibrillation; I10 Essential (primary) hypertension; Z79.899 Other long term (current) drug therapy
CPT/HCPCS: 36415; 85652; 86140

== ENCOUNTER → 2020-09-11 12:38 | Outpatient (CLI) | payer MEDICARE, SELFPAY ==
--- NOTE | 2020-09-11 12:42 | CDU_ITS ---
Reason For Study: AMAUROSIS FUGAX Rt. Velocities/BP Lt. Velocities/BP Prox CCA 103/23 cm/sec. Prox CCA 89/25 cm/sec. Mid CCA 113/28 cm/sec. Mid CCA 106/25 cm/sec. Dist CCA 88/23 cm/sec. Dist CCA 83/26 cm/sec. Prox ICA 100/19 cm/sec. Prox ICA 78/18 cm/sec. Mid ICA 49/19 cm/sec. Mid ICA 70/28 cm/sec. Dist ICA 65/31 cm/sec. Dist ICA 69/32 cm/sec. Rt. ICA/CCA = 1.0. Lt. ICA/CCA = .9. Prox ECA 94/20 cm/sec. Prox ECA 70/13 cm/sec. Rt. Vert. 40/14 cm/sec. Lt. Vert. 60/24 cm/sec. Right Extracranial There is homogeneous, smooth atherosclerotic plaque noted in the right common carotid artery. There is no significant atherosclerotic plaque noted in the right internal carotid artery. The right internal carotid artery is very tortuous. There is no significant atherosclerotic plaque noted in the right external carotid artery. The right external carotid artery is not well visualized. Antegrade flow is noted in the right vertebral artery. Left Extracranial There is heterogeneous, smooth atherosclerotic plaque noted in the left common carotid artery. There is no significant atherosclerotic plaque noted in the left internal carotid artery. The left internal carotid artery is very tortuous. There is heterogeneous, irregular atherosclerotic plaque noted in the left external carotid artery. Antegrade flow is noted in the left vertebral artery. There is heterogeneous, irregular atherosclerotic plaque noted in the left bulb. Procedure Carotid Duplex [id number]. The study was technically difficult. Exam performed in department. VL/Carotid Duplex Ultrasound Interpretation Summary No hemodynamically significant plaque proximal right internal carotid artery wi th less than 50% stenosis Less than 50% stenosis right external carotid artery No hemodynamically significant plaque left internal carotid artery with less th an 50% stenosis Less than 50% stenosis left external carotid artery Bilateral internal carotid arteries are noted to be tortuous Mild irregular plaque left carotid bulb Patent and antegrade vertebrals bilaterally Ordering Physician: Bull Rutledge Referring Physician: HARRIET MCCALLUM Performed By: Sarita Dennis, ZOYA, RVT
== END ==
PROVIDERS: PCP Family Medicine Sports Medicine; Referring Provider Ophthalmology; Visit Provider Ophthalmology
DX: G45.3 Amaurosis fugax (principal)
CPT/HCPCS: 93880

== ENCOUNTER → 2020-10-04 10:30 | Outpatient (CLI) | payer MEDICARE, SELFPAY ==
[2020-10-04 12:34] LABS: ALB/GLOB Ratio 0.8 RATIO (0.9-2.4); AST(SGOT) 14 U/L (15-37); Alanine Aminotransfer ALT/SGPT 20 U/L (13-56); Albumin, Serum 3.1 g/dL (3.2-5.0); Alkaline Phosphatase 52 U/L (45-117); Anion Gap 6 (5-15); BUN 13 mg/dL (7-18); BUN/Creat Ratio 11.7 RATIO (10-20); Calcium,Total 8.9 mg/dL (8.5-10.1); Chloride 103 mmol/L (98-107); Creatinine, Serum 1.11 mg/dL (0.55-1.02); EST Glomerular Filtration Rate 51 mL/min (>60); Est Glom Filt Rate - Afr Amer 62 mL/min (>60); Globulin 3.8 g/dL (2.2-4.2); Glucose 100 mg/dL (74-106); Potassium 3.7 mmol/L (3.5-5.1); Protein, Total 6.9 g/dL (6.4-8.2); Sodium Level 140 mmol/L (136-145)
== END ==
PROVIDERS: PCP Family Medicine Sports Medicine; Referring Provider Internal Medicine Rheumatology; Visit Provider Internal Medicine Rheumatology
DX: M06.4 Inflammatory polyarthropathy (principal); M79.7 Fibromyalgia; M17.0 Bilateral primary osteoarthritis of knee; M47.897 Other spondylosis, lumbosacral region; K76.0 Fatty (change of) liver, not elsewhere classified; G47.33 Obstructive sleep apnea (adult) (pediatric); I48.91 Unspecified atrial fibrillation; I10 Essential (primary) hypertension; Z79.899 Other long term (current) drug therapy
CPT/HCPCS: 36415; 80053

== ENCOUNTER → 2020-11-29 13:14 | Outpatient (CLI) | payer MEDICARE, SELFPAY ==
[2020-11-29 15:01] LABS: Absolute Lymphocyte Count 1.39 X10^3/uL (0.83-4.51); Absolute Neutrophil Count 5.2 X10^3/uL (2.0-7.7); Basophil# 0.05 X10^3/uL; Basophil% 0.6 % (0-1); Eosinophil# 0.53 X10^3/uL; Eosinophils% 6.6 % (0-5); Hematocrit 41.1 % (37-47); Hemoglobin 13.7 g/dL (12.0-15.0); Lymphocyte # 1.39 X10^3/ul (0.83-4.51); Lymphocyte % 17.4 % (19-41); Mean Corp Hgb Conc 33.3 g/dL (32-36); Mean Corpuscular Hgb 33.3 pg (27.0-32.0); Mean Corpuscular Volume 99.8 fL (81-99); Mean Platelet Vol. 10.2 fl (6.2-12.0); Monocyte# 0.78 X10^3/uL; Monocyte% 9.8 % (0-10); NRBC Flagged by Analyzer 0.3 % (0-5); Neutrophil # 5.18 X10^3/uL (2.7-7.7); Neutrophil % 65.1 % (47-70); Platelet Count 273 K/mm3 (150-450); RBC Distribution Width CV 14.5 % (11.6-14.6); RBC Distribution Width SD 52.6 fl (35.1-43.9); Red Blood Count 4.12 M/mm3 (4.2-5.4)
[2020-11-29 15:19] LABS: ALB/GLOB Ratio 0.8 RATIO (0.9-2.4); AST(SGOT) 18 U/L (15-37); Alanine Aminotransfer ALT/SGPT 25 U/L (13-56); Albumin, Serum 3.3 g/dL (3.2-5.0); Alkaline Phosphatase 56 U/L (45-117); Anion Gap 7 (5-15); BUN 18 mg/dL (7-18); BUN/Creat Ratio 16.5 RATIO (10-20); Calcium,Total 9.1 mg/dL (8.5-10.1); Chloride 103 mmol/L (98-107); Creatinine, Serum 1.09 mg/dL (0.55-1.02); EST Glomerular Filtration Rate 52 mL/min (>60); Est Glom Filt Rate - Afr Amer 63 mL/min (>60); Globulin 3.9 g/dL (2.2-4.2); Glucose 106 mg/dL (74-106); Potassium 3.7 mmol/L (3.5-5.1); Protein, Total 7.2 g/dL (6.4-8.2); Sodium Level 141 mmol/L (136-145)
== END ==
PROVIDERS: PCP Family Medicine Sports Medicine; Referring Provider Internal Medicine Rheumatology; Visit Provider Internal Medicine Rheumatology
DX: M06.4 Inflammatory polyarthropathy (principal); M79.7 Fibromyalgia; M17.0 Bilateral primary osteoarthritis of knee; M47.897 Other spondylosis, lumbosacral region; K76.0 Fatty (change of) liver, not elsewhere classified; G47.33 Obstructive sleep apnea (adult) (pediatric); I48.91 Unspecified atrial fibrillation; I10 Essential (primary) hypertension; E88.41 MELAS syndrome; Z79.899 Other long term (current) drug therapy
CPT/HCPCS: 36415; 80053; 85025

== ENCOUNTER → 2021-02-21 12:39 | Outpatient (CLI) | payer MEDICARE, SELFPAY ==
[2021-02-21 15:13] LABS: Absolute Lymphocyte Count 1.41 X10^3/uL (0.83-4.51); Absolute Neutrophil Count 5.2 X10^3/uL (2.0-7.7); Basophil# 0.04 X10^3/uL; Basophil% 0.5 % (0-1); Eosinophil# 0.07 X10^3/uL; Eosinophils% 0.9 % (0-5); Hematocrit 37.9 % (37-47); Hemoglobin 12.6 g/dL (12.0-15.0); Lymphocyte # 1.41 X10^3/ul (0.83-4.51); Lymphocyte % 18.1 % (19-41); Mean Corp Hgb Conc 33.2 g/dL (32-36); Mean Corpuscular Hgb 34.1 pg (27.0-32.0); Mean Corpuscular Volume 102.7 fL (81-99); Mean Platelet Vol. 9.8 fl (6.2-12.0); Monocyte# 1.06 X10^3/uL; Monocyte% 13.6 % (0-10); NRBC Flagged by Analyzer 0 % (0-5); Neutrophil # 5.18 X10^3/uL (2.7-7.7); Neutrophil % 66.4 % (47-70); Platelet Count 300 K/mm3 (150-450); RBC Distribution Width CV 13.5 % (11.6-14.6); RBC Distribution Width SD 50.8 fl (35.1-43.9); Red Blood Count 3.69 M/mm3 (4.2-5.4); White Blood Count 7.8 K/mm3 (4.4-11.0)
[2021-02-21 15:26] LABS: ALB/GLOB Ratio 0.6 RATIO (0.9-2.4); AST(SGOT) 15 U/L (15-37); Alanine Aminotransfer ALT/SGPT 16 U/L (13-56); Albumin, Serum 2.8 g/dL (3.2-5.0); Alkaline Phosphatase 53 U/L (45-117); Anion Gap 9 (5-15); BUN 13 mg/dL (7-18); BUN/Creat Ratio 11.1 RATIO (10-20); Calcium,Total 9.5 mg/dL (8.5-10.1); Chloride 101 mmol/L (98-107); Creatinine, Serum 1.17 mg/dL (0.55-1.02); EST Glomerular Filtration Rate 48 mL/min (>60); Est Glom Filt Rate - Afr Amer 58 mL/min (>60); Globulin 4.7 g/dL (2.2-4.2); Glucose 95 mg/dL (74-106); Potassium 3.4 mmol/L (3.5-5.1); Protein, Total 7.5 g/dL (6.4-8.2); Sodium Level 138 mmol/L (136-145)
== END ==
PROVIDERS: PCP Family Medicine Sports Medicine; Referring Provider Internal Medicine Rheumatology; Visit Provider Internal Medicine Rheumatology
DX: M06.4 Inflammatory polyarthropathy (principal); M79.7 Fibromyalgia; M17.0 Bilateral primary osteoarthritis of knee; M25.512 Pain in left shoulder; K76.0 Fatty (change of) liver, not elsewhere classified; G47.33 Obstructive sleep apnea (adult) (pediatric); I48.91 Unspecified atrial fibrillation; I10 Essential (primary) hypertension; M47.897 Other spondylosis, lumbosacral region; Z79.899 Other long term (current) drug therapy
CPT/HCPCS: 36415; 80053; 85025

== ENCOUNTER 2021-06-13 12:12 | Outpatient (CLI) | payer MEDICARE, SELFPAY ==
[2021-06-13 15:47] LABS: Thyroid Stim Hormone (TSH) 0.97 uIU/mL (0.358-3.74)
== END 2021-06-13 23:59 | disposition home or self-care (01) ==
LOC: MTLAB 12:15
PROVIDERS: PCP Family Medicine Sports Medicine; Referring Provider Internal Medicine Rheumatology; Visit Provider Internal Medicine Rheumatology
DX: M06.4 Inflammatory polyarthropathy (principal); I48.91 Unspecified atrial fibrillation; M79.7 Fibromyalgia; M17.0 Bilateral primary osteoarthritis of knee; M25.512 Pain in left shoulder; K76.0 Fatty (change of) liver, not elsewhere classified; G47.33 Obstructive sleep apnea (adult) (pediatric); I10 Essential (primary) hypertension; M47.897 Other spondylosis, lumbosacral region; Z96.653 Presence of artificial knee joint, bilateral; Z79.899 Other long term (current) drug therapy
CPT/HCPCS: 36415; 84443

== ENCOUNTER 2021-08-12 14:13 | Outpatient (CLI) | payer MEDICARE, SELFPAY ==
[2021-08-12 17:22] LABS: Absolute Lymphocyte Count 1.74 X10^3/uL (0.83-4.51); Absolute Neutrophil Count 5.1 X10^3/uL (2.0-7.7); Basophil# 0.04 X10^3/uL; Basophil% 0.5 % (0-1); Eosinophil# 0.12 X10^3/uL; Eosinophils% 1.6 % (0-5); Hematocrit 42.3 % (37-47); Hemoglobin 13.9 g/dL (12.0-15.0); Lymphocyte # 1.74 X10^3/ul (0.83-4.51); Lymphocyte % 23.7 % (19-41); Mean Corp Hgb Conc 32.9 g/dL (32-36); Mean Corpuscular Volume 100.5 fL (81-99); Mean Platelet Vol. 9.7 fl (6.2-12.0); Monocyte# 0.35 X10^3/uL; Monocyte% 4.8 % (0-10); NRBC Flagged by Analyzer 0 % (0-5); Neutrophil # 5.07 X10^3/uL (2.7-7.7); Platelet Count 289 K/mm3 (150-450); RBC Distribution Width CV 13.4 % (11.6-14.6); RBC Distribution Width SD 50.4 fl (35.1-43.9); Red Blood Count 4.21 M/mm3 (4.2-5.4); White Blood Count 7.4 K/mm3 (4.4-11.0)
[2021-08-12 17:55] LABS: ALB/GLOB Ratio 0.8 RATIO (0.9-2.4); AST(SGOT) 14 U/L (15-37); Alanine Aminotransfer ALT/SGPT 20 U/L (13-56); Albumin, Serum 3.3 g/dL (3.2-5.0); Alkaline Phosphatase 55 U/L (45-117); Anion Gap 7 (5-15); BUN 17 mg/dL (7-18); BUN/Creat Ratio 14.7 RATIO (10-20); Calcium,Total 9.7 mg/dL (8.5-10.1); Chloride 102 mmol/L (98-107); Creatinine, Serum 1.16 mg/dL (0.55-1.02); EST Glomerular Filtration Rate 49 mL/min (>60); Est Glom Filt Rate - Afr Amer 59 mL/min (>60); Globulin 4.1 g/dL (2.2-4.2); Glucose 137 mg/dL (74-106); Potassium 3.7 mmol/L (3.5-5.1); Protein, Total 7.4 g/dL (6.4-8.2); Sodium Level 138 mmol/L (136-145)
== END 2021-08-12 23:59 | disposition home or self-care (01) ==
LOC: MTLAB 14:14
PROVIDERS: PCP Family Medicine Sports Medicine; Referring Provider Internal Medicine Rheumatology; Visit Provider Internal Medicine Rheumatology
DX: M06.4 Inflammatory polyarthropathy (principal); I48.91 Unspecified atrial fibrillation; M79.7 Fibromyalgia; M17.0 Bilateral primary osteoarthritis of knee; M25.512 Pain in left shoulder; K76.0 Fatty (change of) liver, not elsewhere classified; G47.33 Obstructive sleep apnea (adult) (pediatric); I10 Essential (primary) hypertension; M47.897 Other spondylosis, lumbosacral region; Z79.899 Other long term (current) drug therapy
CPT/HCPCS: 36415; 80053; 85025

== ENCOUNTER → 2021-09-18 | Outpatient (CLI) | payer MEDICARE, SELFPAY ==
[2021-09-18 15:21] LABS: Absolute Lymphocyte Count 2.12 X10^3/uL (0.83-4.51); Absolute Neutrophil Count 5.3 X10^3/uL (2.0-7.7); Basophil# 0.06 X10^3/uL; Basophil% 0.7 % (0-1); Eosinophil# 0.06 X10^3/uL; Eosinophils% 0.7 % (0-5); Hematocrit 36.4 % (37-47); Hemoglobin 11.8 g/dL (12.0-15.0); Lymphocyte # 2.12 X10^3/ul (0.83-4.51); Lymphocyte % 25.6 % (19-41); Mean Corp Hgb Conc 32.4 g/dL (32-36); Mean Corpuscular Hgb 32.4 pg (27.0-32.0); Mean Platelet Vol. 9.6 fl (6.2-12.0); Monocyte# 0.67 X10^3/uL; Monocyte% 8.1 % (0-10); NRBC Flagged by Analyzer 0 % (0-5); Neutrophil # 5.33 X10^3/uL (2.7-7.7); Neutrophil % 64.4 % (47-70); Platelet Count 283 K/mm3 (150-450); RBC Distribution Width SD 51.4 fl (35.1-43.9); Red Blood Count 3.64 M/mm3 (4.2-5.4); White Blood Count 8.3 K/mm3 (4.4-11.0)
[2021-09-18 19:39] LABS: ALB/GLOB Ratio 0.8 RATIO (0.9-2.4); AST(SGOT) 16 U/L (15-37); Alanine Aminotransfer ALT/SGPT 20 U/L (13-56); Albumin, Serum 3.2 g/dL (3.2-5.0); Alkaline Phosphatase 55 U/L (45-117); Anion Gap 11 (5-15); BUN 16 mg/dL (7-18); BUN/Creat Ratio 14.7 RATIO (10-20); Calcium,Total 8.9 mg/dL (8.5-10.1); Chloride 105 mmol/L (98-107); Creatinine, Serum 1.09 mg/dL (0.55-1.02); EST Glomerular Filtration Rate 52 mL/min (>60); Est Glom Filt Rate - Afr Amer 63 mL/min (>60); Globulin 3.9 g/dL (2.2-4.2); Glucose 115 mg/dL (74-106); Potassium 3.8 mmol/L (3.5-5.1); Protein, Total 7.1 g/dL (6.4-8.2); Sodium Level 141 mmol/L (136-145); Thyroid Stim Hormone (TSH) 1.36 uIU/mL (0.358-3.74)
== END | disposition home or self-care (01) ==
LOC: MTLAB 13:42
PROVIDERS: PCP Family Medicine Sports Medicine; Referring Provider Internal Medicine Rheumatology; Visit Provider Internal Medicine Rheumatology
DX: M06.4 Inflammatory polyarthropathy (principal); I48.91 Unspecified atrial fibrillation; M79.7 Fibromyalgia; M17.0 Bilateral primary osteoarthritis of knee; M25.512 Pain in left shoulder; K76.0 Fatty (change of) liver, not elsewhere classified; G47.33 Obstructive sleep apnea (adult) (pediatric); I10 Essential (primary) hypertension; M47.897 Other spondylosis, lumbosacral region; Z96.653 Presence of artificial knee joint, bilateral; Z79.899 Other long term (current) drug therapy
CPT/HCPCS: 36415; 80053; 84443; 85025

== ENCOUNTER → 2021-12-10 | Outpatient (CLI) | payer MEDICARE, SELFPAY ==
[2021-12-10 15:01] LABS: Absolute Lymphocyte Count 1.45 X10^3/uL (0.83-4.51); Absolute Neutrophil Count 3.4 X10^3/uL (2.0-7.7); Basophil# 0.04 X10^3/uL; Basophil% 0.7 % (0-1); Eosinophils% 3.5 % (0-5); Hemoglobin 12.3 g/dL (12.0-15.0); Lymphocyte # 1.45 X10^3/ul (0.83-4.51); Lymphocyte % 25.5 % (19-41); Mean Corp Hgb Conc 33.2 g/dL (32-36); Mean Corpuscular Volume 99.2 fL (81-99); Mean Platelet Vol. 9.4 fl (6.2-12.0); Monocyte# 0.62 X10^3/uL; Monocyte% 10.9 % (0-10); NRBC Flagged by Analyzer 0 % (0-5); Neutrophil # 3.37 X10^3/uL (2.7-7.7); Neutrophil % 59.2 % (47-70); Platelet Count 239 K/mm3 (150-450); RBC Distribution Width CV 13.4 % (11.6-14.6); RBC Distribution Width SD 48.9 fl (35.1-43.9); Red Blood Count 3.73 M/mm3 (4.2-5.4); White Blood Count 5.7 K/mm3 (4.4-11.0)
[2021-12-10 15:24] LABS: ALB/GLOB Ratio 0.8 RATIO (0.9-2.4); AST(SGOT) 17 U/L (15-37); Alanine Aminotransfer ALT/SGPT 16 U/L (13-56); Albumin, Serum 3.1 g/dL (3.2-5.0); Alkaline Phosphatase 48 U/L (45-117); Anion Gap 5 (5-15); BUN 14 mg/dL (7-18); BUN/Creat Ratio 13.9 RATIO (10-20); Calcium,Total 9.2 mg/dL (8.5-10.1); Chloride 108 mmol/L (98-107); Creatinine, Serum 1.01 mg/dL (0.55-1.02); EST Glomerular Filtration Rate 57 mL/min (>60); Est Glom Filt Rate - Afr Amer 69 mL/min (>60); Globulin 3.7 g/dL (2.2-4.2); Glucose 93 mg/dL (74-106); Potassium 4.1 mmol/L (3.5-5.1); Protein, Total 6.8 g/dL (6.4-8.2); Sodium Level 143 mmol/L (136-145)
== END | disposition home or self-care (01) ==
LOC: MTLAB 11:19
PROVIDERS: PCP Family Medicine Sports Medicine; Referring Provider Internal Medicine Rheumatology; Visit Provider Internal Medicine Rheumatology
DX: M06.4 Inflammatory polyarthropathy (principal); I48.91 Unspecified atrial fibrillation; M79.7 Fibromyalgia; M17.0 Bilateral primary osteoarthritis of knee; M25.512 Pain in left shoulder; K76.0 Fatty (change of) liver, not elsewhere classified; G47.33 Obstructive sleep apnea (adult) (pediatric); I10 Essential (primary) hypertension; M47.897 Other spondylosis, lumbosacral region; Z96.653 Presence of artificial knee joint, bilateral; Z79.899 Other long term (current) drug therapy
CPT/HCPCS: 36415; 80053; 85025

== ENCOUNTER 2022-01-22 13:18 | Inpatient (IN) | payer MEDICARE, SELFPAY ==
[2022-01-22] VITALS (8 sets, daily range): BP systolic 117–148; BP diastolic 58–80; PULSE 66–111; RESP 16–18; TEMP 36.3–36.6; O2SAT 97–100; BMI 35.4; BMI 35.9
--- NOTE | 2022-01-22 13:30 | RAD_ITS ---
INDICATION: injury EXAMINATION/TECHNIQUE: X-RAY - RIGHT XR Ankle Min 3 Views 3 VIEWS COMPARISON: None. FINDINGS: 3 views of the right ankle were obtained. Disruption of the ankle mortise is is visualized with prominence of the medial clear space. Short oblique fracture of the distal fibula is seen. A subtle density is visualized along the medial aspect of the talus bone, irregularity visualized in the tip of the medial malleolus, findings suggestive of an avulsion fracture. The talar dome is unremarkable. Extensive bimalleolar soft tissue swelling is seen. RAD/Ankle min 3 Views IMPRESSION: Disruption of the ankle mortise is with oblique fracture of the distal fibula and suggestion of avulsion fracture of the medial malleolus. Electronically Signed: Saul Henry MD at 13:44 EDT ,
--- NOTE | 2022-01-22 14:24 | ED.VIS.LOWEX ---
HPI History of Present Illness Chief Complaint: Lower Extremity Injury Narrative Narrative: 76-year-old female presenting with right ankle pain and right knee pain. Patient states that she was walking and stepped off of a curb and rolled her right ankle falling to the ground. She denies head injury or LOC. She is unable to ambulate. She was brought to the emergency room by her friend. [facility] Home Medications apixaban 5 mg tablet (Eliquis) mg 01/22/22 [History Last Taken Unknown] clonidine HCl 0.1 mg tablet mg 01/22/22 [History Last Taken Unknown] gabapentin 100 mg capsule mg 01/22/22 [History Last Taken Unknown] leucovorin calcium 15 mg tablet mg 01/22/22 [History Last Taken Unknown] methotrexate sodium 2.5 mg tablet mg 01/22/22 [History Last Taken Unknown] metoprolol succinate 200 mg tablet,extended release 24 hr mg PO 01/22/22 [History Last Taken Unknown] potassium chloride 20 mEq tablet,extended release(part/cryst) (Klor-Con M) meq PO 01/22/22 [History Last Taken Unknown] promethazine 25 mg tablet mg 01/22/22 [History Last Taken Unknown] tramadol 50 mg tablet mg 01/22/22 [History Last Taken Unknown] Allergy/AdvReac Type Severity Reaction Status Date / Time No Known Allergies Allergy Verified 01/22/22 13:20 Social History Smoking Status: Never smoker ROS ROS ED Constitutional Constitutional ED: Denies chills or fever(s) Eyes Eyes: Denies change in vision or diplopia ENT ENT ED: Denies rhinorrhea or sore throat Cardiovascular Cardiovascular: Denies chest pain or palpitations Respiratory/Chest Respiratory/Chest: Denies cough or dyspnea Gastrointestinal Gastrointestinal: Denies abdominal pain or constipation Genitourinary Genitourinary ED: Denies dysuria or hematuria Musculoskeletal Musculoskeletal: Reports other Details: Right ankle and right knee pain Integumentary Denies abscess Neurologic Neurologic: Denies headache(s) or paresthesias EXAM Physical Exam Const Vital Signs: 01/22/22 13:20 Temperature 97.4 F L Temperature Source Temporal Pulse Rate 81 Respiratory Rate 18 Blood Pressure 117/70 Blood Pressure Mean 85 Pulse Ox 100 Oxygen Delivery Method Room Air Positive well nourished General Appearance ED: NAD HEENT Reports moist mucous membranes normocephalic and atraumatic Cardio regular rate and regular rhythm Extremity Extremity Narrative: Mild tenderness to palpation right proximal fibula. Proximal tibia is nontender. The right ankle is tender to palpation both medially and laterally. There is soft tissue swelling and bruising. Right foot neurovascular intact. Neuro oriented x3 and CN's II-XII intact bilaterally Sensorium / Orientation: alert Motor Exam: strength 5/5 throughout Psych mental status grossly normal MDM MDM MDM Narrative Medical decision making narrative: Patient seen and evaluated on arrival for ankle pain. She did have swelling and bruising here on the right ankle. X-ray on my interpretation shows fracture of the distal fibula which is oblique as well as a avulsion fracture medial malleolus with disruption of the ankle more mortise. Radiologist interpret this and agree. I spoke with Dr. Agarwal who reviewed the x-ray and felt that she would need surgical fixation of this. Patient is on Eliquis which will be held tonight. He recommend admission to the hospitalist. I did obtain a chest x-ray at his request for medical clearance and on my interpretation this is negative for acute cardiopulmonary process and the radiologist does agree. She did have pain in the right proximal fibular region and the x-ray of the right knee 4 views on my interpretation shows no acute fracture or subluxation. CBC was obtained and is unremarkable. CMP is pending. Dr. Agarwal came to the emergency room and placed her in a splint. Patient was given morphine and Zofran post procedurally due to pain. Of note the patient is also experience a lot of anxiety due to the recent loss of her . Patient will have CT of the right ankle performed per Dr. Agarwal and she will be admitted to the hospitalist. Impression: 1. Mechanical fall 2. Bimalleolar fracture 3. Anxiety 4. Right knee strain Lab Data Attestation: I reviewed the patient's lab results. Labs: Laboratory Results - last 24 hr 01/22/22 16:35 WBC 10.4 RBC 3.95 L Hgb 12.9 Hct 39.5 MCV 100.0 H MCH 32.7 H MCHC 32.7 RDW Std Deviation 49.2 H RDW Coeff of Denise 13.3 Plt Count 256 MPV 9.5 Radiography Diagnostic Testing: Clinical Impression(s) from Imaging Studies Ankle X-Ray 01/22/22 13:30 IMPRESSION: Disruption of the ankle mortise is with oblique fracture of the distal fibula and suggestion of avulsion fracture of the medial malleolus. Electronically Signed: Saul Henry MD at 13:44 EDT Reading Location ID and State: [facility] / [place] Tel , Service support , Knee X-Ray 01/22/22 14:45 IMPRESSION: Degenerative changes, no evidence of fracture is seen. Electronically Signed: Saul Henry MD at 15:12 EDT , Chest X-Ray 01/22/22 16:00 IMPRESSION: Cardiomegaly. No radiographic evidence of acute cardiopulmonary disease. Electronically Signed: Saul Henry MD at 16:18 EDT , Discharge Plan Triage Chief Complaint: Lower Extremity Injury ED Provider: Nikita Christianson Dx/Rx/DC Orders Prescriptions: No Action clonidine HCl 0.1 mg tablet metoprolol succinate 200 mg tablet extended release 24 hr PO tramadol 50 mg tablet leucovorin calcium 15 mg tablet potassium chloride [Klor-Con M20] 20 mEq tablet,ER particles/crystals PO methotrexate sodium 2.5 mg tablet promethazine 25 mg tablet gabapentin 100 mg capsule Eliquis 5 mg tablet Primary Care Provider: Danica Perez Referrals: Danica Perez MD [Primary Care Provider] -
[2022-01-22] MEDS: oxyCODONE 5 MG Tablet PO ×2 (14:38→20:11)
--- NOTE | 2022-01-22 14:45 | RAD_ITS ---
INDICATION: pain EXAMINATION/TECHNIQUE: X-RAY - RIGHT XR Knee 1 or 2 Views 3 VIEWS COMPARISON: None. FINDINGS: Unremarkable alignment of the femoral and tibial components of the right knee prosthesis. No evidence of lucency surrounding the prosthesis. Degenerative changes visualized in the patella bone within this tendon enthesopathy is seen. No evidence of suprapatellar effusion. No evidence of cortical irregularity or lucencies suggest a fracture. RAD/Knee 1 or 2 Views IMPRESSION: Degenerative changes, no evidence of fracture is seen. Electronically Signed: Saul Henry MD at 15:12 EDT ,
--- NOTE | 2022-01-22 15:47 | EKG12_ITS ---
Test Reason : OTHER Blood Pressure : / mmHG Vent. Rate : 090 BPM Atrial Rate : 000 BPM P-R Int : 000 ms QRS Dur : 104 ms QT Int : 384 ms P-R-T Axes : 000 -37 234 degrees QTc Int : 469 ms Atrial fibrillation Left axis deviation Nonspecific ST and T wave abnormality Abnormal ECG Confirmed by ROSALIA AGUILERA, MOHAMUD ([id number]), film and video editor MARCOS PORRAS ([id number]) on 01/26/2022 9:46:20 AM Referred By: Confirmed By:MOHAMUD LINDSEY MD
--- NOTE | 2022-01-22 16:00 | RAD_ITS ---
INDICATION: medical clearance EXAMINATION/TECHNIQUE: X-RAY - XR Chest 1 View COMPARISON: None. FINDINGS: LINES/DEVICES: None. LUNGS: No consolidation, edema or effusion. No pneumothorax. MEDIASTINUM AND CARDIOVASCULAR STRUCTURES: Cardiac silhouette is moderately enlarged. BONES AND SOFT TISSUES: Degenerative bone changes.. RAD/Chest 1 View (Portable) IMPRESSION: Cardiomegaly. No radiographic evidence of acute cardiopulmonary disease. Electronically Signed: Saul Henry MD at 16:18 EDT ,
--- NOTE | 2022-01-22 16:32 | CON.PCM_ITS ---
Assessment & Plan Assessment/Plan (1) Bimalleolar fracture of right ankle: PLAN: Exam performed Radiographs reviewed, demonstrate lateral dislocated ankle fracture. Ankle fracture is oblique in nature stems from the level of the syndesmosis suggestive of a pronation abduction type injury. There is medial clear space widening and lateral displacement of the talus within the ankle mortise secondary to loss of the lateral buttress via fibular fracture. This is an unstable fracture that requires open reduction with internal fixation. Due to patient's advanced age is with her interest to restore the normal function of the ankle to establish a return to ambulatory function. Plan will be for hospital admission due to gait instability as patient cannot tolerate crutches and nonweightbearing to right lower extremity we will plan for open reduction with internal fixation of her right ankle fracture on 01/23/2022 at 1 PM. Patient will be n.p.o. after midnight, Eliquis should be placed on hold, consent to be obtained. Will continue to follow the patient closely. HPI Consult Data Date of Consult: 01/22/22 HPI Narrative HPI Narrative: MIHIR KULKARNI, is a 76 F who presents after stepping off a curb around 12:15 PM when walking across the street she suffered a right ankle injury and noticed an immediate inability to bear weight. Patient had x-rays in the ED today which demonstrated a laterally displaced pronation abduction type ankle injury. Patient is able to actively move her digits. Pain is tolerable at this time. Patient unable to actively move her ankle due to pain and guarding. Patient has intact sensation to her toes denies any numbness paresthesias loss of sensation or paralysis. No other complaints. [facility] Home Medications apixaban 5 mg tablet (Eliquis) mg 01/22/22 [History Last Taken Unknown] clonidine HCl 0.1 mg tablet mg 01/22/22 [History Last Taken Unknown] gabapentin 100 mg capsule mg 01/22/22 [History Last Taken Unknown] leucovorin calcium 15 mg tablet mg 01/22/22 [History Last Taken Unknown] methotrexate sodium 2.5 mg tablet mg 01/22/22 [History Last Taken Unknown] metoprolol succinate 200 mg tablet,extended release 24 hr mg PO 01/22/22 [History Last Taken Unknown] potassium chloride 20 mEq tablet,extended release(part/cryst) (Klor-Con M) meq PO 01/22/22 [History Last Taken Unknown] promethazine 25 mg tablet mg 01/22/22 [History Last Taken Unknown] tramadol 50 mg tablet mg 01/22/22 [History Last Taken Unknown] Allergy/AdvReac Type Severity Reaction Status Date / Time No Known Allergies Allergy Verified 01/22/22 13:20 Social History Smoking Status: Never smoker ROS Constitutional Constitutional: Denies daytime sleepiness, increased appetite or weakness Eyes Eyes: Denies change in vision, double vision or irritation ENT HEENT: Denies change in voice, facial pain or loss taste/smell Cardiovascular Cardiovascular: Denies abdominal pain, chest pain with activity or dyspnea at re st Respiratory/Chest Respiratory/Chest: Denies change in phlegm color, chest congestion or dyspnea on exertion Gastrointestinal Gastrointestinal: Denies change in bowel habits, diarrhea or heartburn Genitourinary Genitourinary: Denies change in libido, dribbling or flank pain Physical Exam Narrative Patient alert oriented person place time. Patient seen bedside. Patient unable to bear weight to right lower extremity. Vascular: +1 pitting edema noted to left lower extremity +2 pitting edema noted to right lower extremity patient has venous insufficiency bilaterally. Dorsalis pedis posterior tibial pulses palpable to bilateral lower extremity. Capillary fill time is brisk to lesser digits. Neurologic: Light touch protective sensation and two-point discrimination intact. Patient able to actively move her digits. Dermatologic: No open wounds skin tenting or concern for immediate neurovascular compromise or wound formation secondary to fracture dislocation. Musculoskeletal: Pain diffusely to right ankle nonlocalized. Pain noted to proximal fibular head. Lateral dislocation of right ankle noted. Patient unable to move ankle due to guarding and pain. No foot pain noted at this time. Radiology Impression Ankle X-Ray 01/22/22 13:30 IMPRESSION: Disruption of the ankle mortise is with oblique fracture of the distal fibula and suggestion of avulsion fracture of the medial malleolus. Electronically Signed: Saul Henry MD at 13:44 EDT Reading Location ID and State: [address] [place] [address] Tel , Service support , Knee X-Ray 01/22/22 14:45 IMPRESSION: Degenerative changes, no evidence of fracture is seen. Electronically Signed: Saul Henry MD at 15:12 EDT , Chest X-Ray 01/22/22 16:00 IMPRESSION: Cardiomegaly. No radiographic evidence of acute cardiopulmonary disease. Electronically Signed: Saul Henry MD at 16:18 EDT ,
[2022-01-22] MEDS: Morphine 4 MG/ML Syringe IV ×2 (16:41→17:31)
[2022-01-22] MEDS: Ondansetron 4 MG/2 ML Vial IV (16:41)
[2022-01-22 16:46] LABS: Hematocrit 39.5 % (37-47); Hemoglobin 12.9 g/dL (12.0-15.0); Mean Corp Hgb Conc 32.7 g/dL (32-36); Mean Corpuscular Hgb 32.7 pg (27.0-32.0); Mean Platelet Vol. 9.5 fl (6.2-12.0); Platelet Count 256 K/mm3 (150-450); RBC Distribution Width CV 13.3 % (11.6-14.6); RBC Distribution Width SD 49.2 fl (35.1-43.9); Red Blood Count 3.95 M/mm3 (4.2-5.4); White Blood Count 10.4 K/mm3 (4.4-11.0)
--- NOTE | 2022-01-22 16:46 | PCM.HP.STD ---
HPI - General General Date of Admission: 01/22/22 Date of Service: 01/22/22 Chief Complaint: right ankle and right knee pain HPI Narrative MIHIR KULKARNI, is a 76 F with a PMh as outlined who presents via the ED on 01/22/2022 with a complaitn of right ankle and right knee pain. She fell after stepping off a curb on the day of admission, and rolled her knee. She immediately had difficulty weight bearing and was unable to ambulate, so she came in to the ED. Review of systems was otherwise negative Vitals were BP of 117/70, MN of 81, RR of 18 and temp of 97.4F. She was saturating at 100% on room air. CBC and BMP were pending at time of review. Xray of the ankle showed oblique fracture of the distal fibula, suggestive of avulsion fracture of the medial malleolus. She is being admitted to be managed for right ankle fracture due to mechanical fall. [facility], [facility] Medical History (Updated 01/22/22 @ 17:23 by Divya Chavez) Atrial fibrillation Hypertension Kidney stones Non-smoker Osteoporosis Rheumatoid arthritis Home Medications apixaban 5 mg tablet (Eliquis) mg 01/22/22 [History Last Taken Unknown] bupropion HCl 150 mg 24 hr tablet, extended release 150 mg PO DAILY mood 01/22/22 [History Last Taken 01/22/22] clonidine HCl 0.1 mg tablet mg 01/22/22 [History Last Taken Unknown] gabapentin 100 mg capsule mg 01/22/22 [History Last Taken Unknown] leucovorin calcium 15 mg tablet mg 01/22/22 [History Last Taken Unknown] methotrexate sodium 2.5 mg tablet mg 01/22/22 [History Last Taken Unknown] metoprolol succinate 200 mg tablet,extended release 24 hr mg PO 01/22/22 [History Last Taken Unknown] potassium chloride 20 mEq tablet,extended release(part/cryst) (Klor-Con M) meq PO 01/22/22 [History Last Taken Unknown] tramadol 50 mg tablet mg 01/22/22 [History Last Taken Unknown] Allergy/AdvReac Type Severity Reaction Status Date / Time No Known Allergies Allergy Verified 01/22/22 13:20 Surgical History (Updated 01/22/22 @ 17:23 by Divya Chavez) History of cholecystectomy Total knee replacement status Social History Smoking Status: Never smoker ROS Review of Systems ROS Unobtainable: Denies due to encephalopathy Constitutional Constitutional: Denies anorexia, chills, fatigue, fever(s), malaise or weakness Eyes Eyes: Denies change in vision ENT HEENT: Denies dysphagia, headache(s) or sore throat Cardiovascular Cardiovascular: Denies chest pain, dyspnea on exertion, edema, lightheadedness, orthopnea, palpitations, paroxysmal nocturnal dyspnea or rapid heart rate Respiratory/Chest Respiratory/Chest: Denies cough, dyspnea, productive cough, shortness of breath at rest or shortness of breath with exertion Gastrointestinal Gastrointestinal: Denies abdominal pain, constipation, diarrhea, hematochezia, nausea or vomiting Genitourinary Genitourinary: Denies burning urination or dysuria Musculoskeletal Musculoskeletal: Reports joint pain and joint swelling; Denies back pain, joint stiffness or myalgias Neurologic Neurologic: Denies confusion, dizziness, focal weakness, headache(s), numbness, seizure-like activity, seizures or syncope Psychiatric Psychiatric: Denies anxiety Vital Signs Vital Signs Vital Signs: 01/22/22 13:20 Temperature 97.4 F L Temperature Source Temporal Pulse Rate 81 Respiratory Rate 18 Blood Pressure 117/70 Blood Pressure Mean 85 Pulse Ox 100 Oxygen Delivery Method Room Air Weight Weight: 200 lb Body Mass Index (BMI) 35.4 Physical Exam Const alert, oriented x3 and no apparent distress General Appearance: cooperative HEENT normocephalic, head/scalp atraumatic, hearing grossly normal bilaterally and moist oral mucous membranes Mouth: oral and palatal mucosa normal Eyes PERRL, EOMs intact bilaterally and conjunctivae normal Neck no lymphadenopathy and supple Resp normal respiratory effort, no retractions, no use of accessory muscles and clear to auscultation bilaterally Cardio S1 normal heart sound, S2 normal heart sound and no murmurs Cardio Narrative: Afib, rate controlled GI normal to inspection, nondistended, normoactive bowel sounds, soft to palpation, non-tender and non-distended Extremity no clubbing, cyanosis or edema Extremity Narrative: right ankle in splint. Neuro oriented x3, CN's II-XII intact bilaterally and no focal motor deficits Sensorium / Orientation: awake, alert and oriented to person Psych affect normal Results Lab / Micro Data Result Diagrams: 01/22/22 16:35 01/22/22 16:35 Radiology Impression Ankle X-Ray 01/22/22 13:30 IMPRESSION: Disruption of the ankle mortise is with oblique fracture of the distal fibula and suggestion of avulsion fracture of the medial malleolus. Electronically Signed: Saul Henry MD at 13:44 EDT , Knee X-Ray 01/22/22 14:45 IMPRESSION: Degenerative changes, no evidence of fracture is seen. Electronically Signed: Saul Henry MD at 15:12 EDT , Chest X-Ray 01/22/22 16:00 IMPRESSION: Cardiomegaly. No radiographic evidence of acute cardiopulmonary disease. Electronically Signed: Saul Henry MD at 16:18 EDT , Assessment & Plan Assessment/Plan (1) Bimalleolar fracture of right ankle: PLAN: Plan #Right ankle fracture due to mechanical fall admit to med surg podiatry ion board xray showed disruption of the ankle mortise with oblique fracture of the distal fibula and avulsion fracture of the medial malleolus Consult PT/OT hold eliquis for surgery tomorrow PO tylenol, oxycodone and IV morphine prn for pain fall precautions #Afib EKG shows afib, rate controlled. hold eliquis as she is having surgery tomorrow continue metoprolol #Rheumatoid arthritis methotrexate and leucovorin DVT prophylaxis: SCDs Code status: full code Patient counseled extensively about different types of CODE STATUS including full code, DNR CCA and DNR CCA. Patient elects to be full code. Total [id number] time 16 minutes. Charges/Coding Visit Charges Inpatient E&M: 12721 Init Hosp L3 Procedures Hospitalists Procedures: 39132 Advncd Care Plan 30 Min
--- NOTE | 2022-01-22 17:10 | CT_ITS ---
CT of the right ankle INDICATION: Operative planning TECHNIQUE: CT of the right ankle was performed in the axial projection without contrast followed by sagittal coronal image. Radiographic technique was optimized to limit patient radiation dose. DLP was 537.98 FINDINGS: There is an acute impacted fracture of the distal fibular shaft with mild overlapping and medial displacement of the proximal fracture fragment. There is also acute intra-articular fracture of the distal lateral tibia with mild separation of fracture fragments. There is associated medial displacement of the distal tibial shaft with respect to the dorsal surface of the talus widening the medial tibiotalar joint space CT/Extremity Lower without Contra IMPRESSION: Acute bimalleolar fracture with tibiotalar subluxation. Electronically Signed: Bull Serrano MD at 17:50 EDT ,
[2022-01-22 17:56] LABS: ALB/GLOB Ratio 0.9 RATIO (0.9-2.4); AST(SGOT) 17 U/L (15-37); Alanine Aminotransfer ALT/SGPT 21 U/L (13-56); Albumin, Serum 3.5 g/dL (3.2-5.0); Alkaline Phosphatase 51 U/L (45-117); Anion Gap 8 (5-15); BUN 17 mg/dL (7-18); BUN/Creat Ratio 13.8 RATIO (10-20); Calcium,Total 9.2 mg/dL (8.5-10.1); Chloride 105 mmol/L (98-107); Creatinine, Serum 1.23 mg/dL (0.55-1.02); EST Glomerular Filtration Rate 45 mL/min (>60); Est Glom Filt Rate - Afr Amer 55 mL/min (>60); Estimated Creatinine Clearance 33.19 ml/min; Globulin 3.9 g/dL (2.2-4.2); Glucose 94 mg/dL (74-106); Potassium 4.1 mmol/L (3.5-5.1); Protein, Total 7.4 g/dL (6.4-8.2); Sodium Level 141 mmol/L (136-145)
[2022-01-22] MEDS: 0.9% Normal Saline 1,000 ML 125 ML IV (18:32)
[2022-01-22] MEDS: cloNIDine HCl 0.1 MG Tablet PO (20:12)
[2022-01-22] MEDS: Acetaminophen 325 MG Tablet 650 MG PO (20:12)
[2022-01-23] VITALS (16 sets, daily range): BP systolic 132–146; BP diastolic 68–85; PULSE 72–129; RESP 16–18; TEMP 36.5–37.2; O2SAT 95–100; BMI 35.9
[2022-01-23] MEDS: 0.9% Normal Saline 1,000 ML 125 ML IV (01:27)
[2022-01-23] MEDS: oxyCODONE 5 MG Tablet PO ×3 (02:13→20:50)
[2022-01-23 05:56] LABS: Absolute Lymphocyte Count 1.66 X10^3/uL (0.83-4.51); Absolute Neutrophil Count 4.3 X10^3/uL (2.0-7.7); Basophil# 0.04 X10^3/uL; Basophil% 0.6 % (0-1); Eosinophils% 2.8 % (0-5); Hematocrit 34.1 % (37-47); Hemoglobin 11.4 g/dL (12.0-15.0); Lymphocyte # 1.66 X10^3/ul (0.83-4.51); Lymphocyte % 23.3 % (19-41); Mean Corp Hgb Conc 33.4 g/dL (32-36); Mean Corpuscular Hgb 33.1 pg (27.0-32.0); Mean Corpuscular Volume 99.1 fL (81-99); Mean Platelet Vol. 9.5 fl (6.2-12.0); Monocyte# 0.91 X10^3/uL; Monocyte% 12.8 % (0-10); NRBC Flagged by Analyzer 0 % (0-5); Neutrophil # 4.29 X10^3/uL (2.7-7.7); Neutrophil % 60.1 % (47-70); Platelet Count 195 K/mm3 (150-450); RBC Distribution Width CV 13.3 % (11.6-14.6); RBC Distribution Width SD 48.5 fl (35.1-43.9); Red Blood Count 3.44 M/mm3 (4.2-5.4); White Blood Count 7.1 K/mm3 (4.4-11.0)
[2022-01-23 06:35] LABS: Anion Gap 6 (5-15); BUN 15 mg/dL (7-18); BUN/Creat Ratio 13.6 RATIO (10-20); Calcium,Total 8.2 mg/dL (8.5-10.1); Chloride 108 mmol/L (98-107); EST Glomerular Filtration Rate 52 mL/min (>60); Est Glom Filt Rate - Afr Amer 62 mL/min (>60); Estimated Creatinine Clearance 37.12 ml/min; Glucose 88 mg/dL (74-106); Potassium 3.8 mmol/L (3.5-5.1); Sodium Level 142 mmol/L (136-145)
[2022-01-23] MEDS: Potassium Chloride Oral Tablet 20 MEQ PO (08:17)
[2022-01-23] MEDS: Metoprolol(XL)Succ 200 MG Tablet PO (08:17)
[2022-01-23] MEDS: buPROPion (XL) 150 MG TABLET.XL PO (08:18)
[2022-01-23] MEDS: cloNIDine HCl 0.1 MG Tablet PO ×2 (08:18→20:49)
[2022-01-23] MEDS: Acetaminophen 325 MG Tablet 650 MG PO ×2 (08:22→20:50)
[2022-01-23] MEDS: Morphine 2 MG/ML Syringe IV (08:23)
--- NOTE | 2022-01-23 09:37 | CASEMGMT ---
SHAHID [place]ILL Assessment: Face to Face with pt for initial transition planning/care coordination assessment. RN SERGIO introduced self and role at [facility], pt voices understanding and consents to assessment. Pt is A/O x4 and answers all questions appropriately at this time. Pt lying in bed in no distress with tile burner at bedside. Pt agreeable to assessment with visitor present. Care providers, pharmacy, and demographics verified/updated. Admitting Dx: ankle fracture PCP:Chris Specialists:Lorie, iqra; cardio at [facility] Danna Preferred Pharmacy: [facility] [place] Insurance: [employer] [facility] Prescription Benefit: yes LW/HPOA: Pt states she has a LW/DPOA and her DPOA is Xochitl Killian dtr. She is aware this is not on file at [facility] and she may bring in to be scanned into her chart. LNOK: Xochitl Killian dtr; Aneesh Sotomayor, son Living Arrangements: Pt lives alone in a single story house with 3 steps to enter with a rail. Pt reports she is I in ADL's and denies concerns at home. Transportation: Pt drives self and denies concerns with transportation. DME/HHC/SNF: Pt has a cane at home but does not use. Pt has had HHC in the past but is unsure of the name of the agency. Pt has been to [facility]. Pt states her dtr is currently in [place] but will be home Wednesday. Pt friend in [place] is willing to have pt come stay with her until her dtr is home if need be. Pt aware that RN SERGIO will follow with her to see what her needs are post surgery. Pt to have surgery today at 1pm. Pt states no further concerns/needs. CM to follow. Advised pt to ask CM if any further question/concerns/needs arise, voices understanding. Pt Goal: Return home with dtr assistance or to friend's home. Plan: TBD pending surgery and therapy
--- NOTE | 2022-01-23 09:52 | PCM.PN.HOSP ---
Subjective Subjective Patient seen and examined. Her pain is well controlled. She is due for surgery today on her right ankle. Review of systems is otherwise negative. Objective Data Objective Data Vital Signs: Vital Signs Temp Pulse Resp BP Pulse Ox O2 Del Method 97.8 F 77 18 141/78 H 99 Room Air 01/23/22 09:34 01/23/22 09:34 01/23/22 09:34 01/23/22 09:34 01/23/22 09:34 01/23/22 09:34 Oxygen Delivery Method Room Air Weight: 202 lb 9.677 oz Body Mass Index (BMI) 35.9 Intake & Output: Intake and Output for Last 24 Hours 01/21/22 01/22/22 01/23/22 23:59 23:59 23:59 Intake Total 400 / 400 1864.58 / 1864.58 Output Total 650 / 650 Balance 400 / 400 1214.58 / 1214.58 Lab / Micro Data Result Diagrams: 01/23/22 05:39 01/23/22 05:39 Labs: Laboratory Results - last 24 hr 01/22/22 16:35: WBC 10.4, RBC 3.95 L, Hgb 12.9, Hct 39.5, MCV 100.0 H, MCH 32.7 H, MCHC 32.7, RDW Std Deviation 49.2 H, RDW Coeff of Denise 13.3, Plt Count 256, MPV 9.5 01/22/22 16:35: Sodium 141, Potassium 4.1, Chloride 105, Carbon Dioxide 28.0, Anion Gap 8, BUN 17, Creatinine 1.23 H, Estim Creat Clear Calc 33.19, Est GFR (MDRD) Af Amer 55 L, Est GFR (MDRD) Non-Af 45 L, BUN/Creatinine Ratio 13.8, Glucose 94, Calcium 9.2, Total Bilirubin 0.50, AST 17, ALT 21, Alkaline Phosphatase 51, Total Protein 7.4, Albumin 3.5, Globulin 3.9, Albumin/Globulin Ratio 0.9 01/23/22 05:39: WBC 7.1, RBC 3.44 L, Hgb 11.4 L, Hct 34.1 L, MCV 99.1 H, MCH 33.1 H, MCHC 33.4, RDW Std Deviation 48.5 H, RDW Coeff of Denise 13.3, Plt Count 195, MPV 9.5, Immature Gran % (Auto) 0.400, Neut % (Auto) 60.1, Lymph % (Auto) 23.3, [place] % (Auto) 12.8 H, Eos % (Auto) 2.8, Baso % (Auto) 0.6, Absolute Neuts (auto) 4.3, Absolute Lymphs (auto) 1.66, Nucleated RBC % 0 01/23/22 05:39: Sodium 142, Potassium 3.8, Chloride 108 H, Carbon Dioxide 28.0, Anion Gap 6, BUN 15, Creatinine 1.10 H, Estim Creat Clear Calc 37.12, Est GFR (MDRD) Af Amer 62, Est GFR (MDRD) Non-Af 52 L, BUN/Creatinine Ratio 13.6, Glucose 88, Calcium 8.2 L Radiography Diagnostic Testing: Radiology Impression Ankle X-Ray 01/22/22 13:30 IMPRESSION: Disruption of the ankle mortise is with oblique fracture of the distal fibula and suggestion of avulsion fracture of the medial malleolus. Electronically Signed: Saul Henry MD at 13:44 EDT Reading Location ID and State: [address] [place] [address] Tel , Service support , Knee X-Ray 01/22/22 14:45 IMPRESSION: Degenerative changes, no evidence of fracture is seen. Electronically Signed: Saul Henry MD at 15:12 EDT Reading Location ID and State: [facility] / [place] Tel , Service support , Chest X-Ray 01/22/22 16:00 IMPRESSION: Cardiomegaly. No radiographic evidence of acute cardiopulmonary disease. Electronically Signed: Saul Henry MD at 16:18 EDT Reading Location ID and State: [facility] / [place] Tel , Service support , Lower Extremity CT 01/22/22 17:10 IMPRESSION: Acute bimalleolar fracture with tibiotalar subluxation. Electronically Signed: Bull Serrano MD at 17:50 EDT Reading Location ID and State: [facility] / [place] , Service support , Physical Exam Const alert, oriented x3 and no apparent distress General Appearance: cooperative HEENT normocephalic, head/scalp atraumatic, hearing grossly normal bilaterally and moist oral mucous membranes Head and Scalp: normocephalic Mouth: oral and palatal mucosa normal Eyes PERRL, EOMs intact bilaterally and conjunctivae normal Neck no lymphadenopathy and supple Resp normal respiratory effort, no retractions, no use of accessory muscles and clear to auscultation bilaterally Cardio S1 normal heart sound, S2 normal heart sound and no murmurs Cardio Narrative: Afib, rate controlled GI normal to inspection, nondistended, normoactive bowel sounds, soft to palpation, non-tender and non-distended Extremity no clubbing, cyanosis or edema Extremity Narrative: right ankle in splint. Neuro oriented x3, CN's II-XII intact bilaterally and no focal motor deficits Sensorium / Orientation: awake, alert and oriented to person Psych affect normal Assessment & Plan Assessment/Plan (1) Bimalleolar fracture of right ankle: PLAN: Plan #Right ankle fracture due to mechanical fall podiatry on board xray showed disruption of the ankle mortise with oblique fracture of the distal fibula and avulsion fracture of the medial malleolus CT of the right ankle showed acute bimalleolar fracture with tibiotalar sublaxation PT/OT on board eliquis on hold. PO tylenol, oxycodone and IV morphine prn for pain fall precautions #Afib EKG shows afib, rate controlled. hold eliquis as she is having surgery today continue metoprolol #Rheumatoid arthritis methotrexate and leucovorin DVT prophylaxis: SCDs Code status: full code Charges/Coding Visit Charges Inpatient E&M: 15302 Subs Hosp L2
--- NOTE | 2022-01-23 13:00 | RAD_ITS ---
INDICATION: ORIF, ANKLE EXAMINATION/TECHNIQUE: X-RAY - XR Ankle Min 3 Views COMPARISON: 01/22/2022. FLUOROSCOPY DOSE: 1.57 mGy FLUOROSCOPY TIME: 44.7 seconds. FINDINGS: A spot fluoroscopic images were obtained intraoperatively. Images demonstrate internal fixation of the distal fibula.. No radiologist was present for the procedure, please refer to operative report for details. RAD/Ankle min 3 Views IMPRESSION: Please refer to operative report for details. Electronically Signed: Saul Henry MD at 15:08 EDT ,
[2022-01-23 13:06] LABS: Mucous, Urine 0 SEEN /hpf (<or=2+); Red Blood Cells-Urine 0 SEEN /hpf (0-5)
[2022-01-23 13:08] LABS: Color, Urine Straw (Yellow); Glucose, Dipstick Normal (Normal); Ketone-Dipstick Negative (Negative); Leukocyte Esterase-Dipstick 500 /ul (Negative); Nitrite-Dipstick Positive (Negative); Occult Blood-Urine 10 /ul (Negative); Protein-Dipstick Negative (Negative); Urine Bilirubin Dipstick Negative (Negative); Urine Clarity Sl. Cloudy (Clear); Urine Urobilinogen Normal (Normal)
[2022-01-23 13:16] LABS: Squamous Epithelial Cells - UA 0-5 SEEN /hpf (5-10); White Blood Cells 5-10 SEEN /hpf (0-5)
[2022-01-23 13:17] LABS: Bacteria 4+ /hpf (None Seen)
[2022-01-23] MEDS: Cefazolin 2 GM in 0.9% Normal Saline 100 ML IV (13:44)
--- NOTE | 2022-01-23 15:22 | PCM.OPRPT ---
Problems Associated Problem List Diagnoses (1) Closed fracture of lateral malleolus of right ankle: Report of Operation Date of Procedure: 01/23/22 Pre-Operative Diagnosis: Displaced distal fibular fracture, right ankle Post-Operative Diagnosis: Displaced distal fibular fracture, right ankle Surgery/Procedure Performed:: Open Reduction with Internal Fixation, right distal fibula Description of Surgical Findings:: Adequate reduction of displaced lateral malleolus fracture post open reduction internal fixation this is noted both clinically and fluoroscopically Surgeon: Eros Agarwal traffic safety administrator: None (charleen kim) Type of Anesthesia: General Special Medications: popliteal block per anesthesia Specimen's removed: none Drains: none Estimated Blood Loss (mL): minimal Fluids Replaced: none Description of Procedure: Patient brought back in the operating placed comfortably in the supine position on the operating room table patient induced under general anesthesia patient received a popliteal block in the preoperative area per anesthesia. Well-padded right thigh tourniquet applied. Hip bump placed on the right lower extremity did not note any additional external rotation. Right lower extremity was then scrubbed prepped draped using typical aseptic manner. Right lower extremity was elevated exsanguinated tourniquet was inflated 300 mmHg total tourniquet time was noted to be 45 minutes. Using fluoroscopic imaging and palpation the distal fibula was marked out and a linear incision was made along the distal one third of the fibula this incision was made full-thickness through the epidermis dermis into subcutaneous tissue down to level of bone any bleeders were cauterized neurovascular structures were identified and bluntly retracted. The fracture was quickly identified and periosteal dissection was performed to expose the fracture and the fracture site was flushed and cleansed of any hematoma using normal sterile saline and a dental pick. Next reduction was performed manually and clamped in place with a lobster-claw clamp. This was confirmed on multiple fluoroscopic imaging's as well as clinically. A 3.5 mm cortical screw was placed from anterior superior to distal posterior inferior across the fracture line from Arthrex fracture set. This was performed using lag technique and manufactures guidelines. Next a lateral anatomic fibular plate was applied and pinned using BB tacks. Multiple fluoroscopic images demonstrated adequate placement of the plate with maintained fracture reduction. At this time a nonlocking screw was placed along the proximal aspect of the plate to bring it down to level of bone and a nonlocking screw was placed on the distal aspect of the fracture. To help realign the bone. 5 distal locking screws were applied along the distal aspect of the bone to secure the plate into the distal aspect of the lateral malleolus distal to the fracture fragment using manufactures guideline along with 2 additional cortical nonlocking screws making 3 nonlocking screws along the proximal aspect of the plate. All BB tacks were removed reduction clamp was removed. Reduction was maintained this confirmed with intraoperative findings and fluoroscopic imaging was tourniquet was let down tourniquet time was noted to be 45 minutes there is noted to be healthy bleeding to the area any additional bleeders were cauterized at this time incision site was flushed with copious amounts normal sterile saline and closed with deep closure and subcutaneous with 2-0 Vicryl simple interrupted buried technique. Skin closure performed with lona. Dressed with bacitracin Adaptic 4 x 4's Kerlix modified Toussaint compression dressing with a well-padded posterior splint. Patient was transported to PACU vital signs stable and vascular status intact all digits for further monitoring prior to discharge. Patient tolerated anesthesia and procedure well in apparent satisfactory condition will be transferred back to floor we will consider SNF placement as patient is elderly and may not tolerate nonweightbearing status very well. No complications Findings adequate reduction of fracture Admit VTE Documentation VTE Present on Admission: Yes VTE Mechan Device Prophylaxis: SCD's VTE Pharm Prophylaxis ordered?: Yes
[2022-01-23] MEDS: 0.9% Saline Lock 10 ML Syringe IV (20:50)
--- NOTE | 2022-01-23 23:49 | PCM.HOSP.N ---
Hospitalist Note Patient with notable agitation and irritability, patient friend now present to assist in calming her. Will dose x 1 with low dose seroquel.
--- NOTE | 2022-01-24 00:01 | NURSING ---
Earlier this evening patient became confused. She got out of bed by herself and went to the bedside commode. She ambulated into the hallway with a walker, full weight bearing on bilateral lower extremities. When approached by nursing to get back into bed and to not put weight on her surgical foot, patient became angry with nursing. Nursing eventually got patient back into bed, elevated her right foot, and set bed alarm. Patient repeatedly attempted to get out of bed and continued being very frustrated with nursing. Patient ambulated multiple laps around unit, full weight bearing with walker with nursing staff beside her. Patient would not listen to nursing staff regarding weight bearing status. During this time her heart rate was in the 120s-140s, even 160 at one time. Nursing let her know that her heart rate was too high and she needed to get back into bed. Patient ignored nursing and kept on walking. She said she was looking for her friend. She was supposed to meet her friend upstairs in her office. Patient called her friend, Yeni. Yeni then called [facility] and talked to this RN. Friend, Yeni, was concerned that patient was confused. Yeni offered to come and sit with patient. This RN agreed and said that would be very helpful, perhaps a familiar face would help the situation. Friend, Yeni, arrived and got patient back to her bed in her room. Patients heart rate returned to normal after friend talked to her a while.
--- NOTE | 2022-01-24 00:46 | NURSING ---
Addendum entered by Bernice Schultz 01/24/22 04:29: Patient attempted to drink from Purell. Purell bottle removed from waiting area where patient is sitting. Addendum entered by Bernice Schultz 01/24/22 04:28: Patient again refusing vitals and assessment. Original Note: Patient refusing vitals being checked. Refusing to take ordered Seroquel. Refusing assessment except for foot.
[2022-01-24 05:58] VITALS: BP 148/85; PULSE 89; RESP 18; TEMP 36.7; O2SAT 100
[2022-01-24 06:08] LABS: Absolute Lymphocyte Count 0.59 X10^3/uL (0.83-4.51); Absolute Neutrophil Count 9.5 X10^3/uL (2.0-7.7); Basophil# 0.01 X10^3/uL; Basophil% 0.1 % (0-1); Hematocrit 35.4 % (37-47); Hemoglobin 12.1 g/dL (12.0-15.0); Lymphocyte # 0.59 X10^3/ul (0.83-4.51); Lymphocyte % 5.3 % (19-41); Mean Corp Hgb Conc 34.2 g/dL (32-36); Mean Corpuscular Hgb 33.6 pg (27.0-32.0); Mean Corpuscular Volume 98.3 fL (81-99); Mean Platelet Vol. 9.7 fl (6.2-12.0); Monocyte% 8.2 % (0-10); NRBC Flagged by Analyzer 0 % (0-5); POSITIVE DIFFERENTIAL YES; Platelet Count 207 K/mm3 (150-450); RBC Distribution Width CV 13.2 % (11.6-14.6); RBC Distribution Width SD 47.6 fl (35.1-43.9)
[2022-01-24 06:14] LABS: Differential Indicated SCAN CRITERIA MET
[2022-01-24 06:36] LABS: Anion Gap 10 (5-15); BUN 16 mg/dL (7-18); BUN/Creat Ratio 13.4 RATIO (10-20); Calcium,Total 8.5 mg/dL (8.5-10.1); Chloride 107 mmol/L (98-107); Creatinine, Serum 1.19 mg/dL (0.55-1.02); EST Glomerular Filtration Rate 47 mL/min (>60); Est Glom Filt Rate - Afr Amer 57 mL/min (>60); Estimated Creatinine Clearance 34.31 ml/min; Glucose 125 mg/dL (74-106); Potassium 3.5 mmol/L (3.5-5.1); Sodium Level 142 mmol/L (136-145)
[2022-01-24 06:40] LABS: Differential Comment SCANNED
[2022-01-24 08:56] VITALS: PULSE 94
[2022-01-24] MEDS: cloNIDine HCl 0.1 MG Tablet PO ×2 (08:56→21:26)
[2022-01-24] MEDS: Potassium Chloride Oral Tablet 20 MEQ PO (08:56)
[2022-01-24] MEDS: Metoprolol(XL)Succ 200 MG Tablet PO (08:56)
[2022-01-24] MEDS: buPROPion (XL) 150 MG TABLET.XL PO (08:57)
--- NOTE | 2022-01-24 09:35 | RAD_ITS ---
STUDY: X-RAY - RIGHT ANKLE REASON FOR EXAM: Female, 76 years old. Ambulating on ankle fracture TECHNIQUE: 3 view(s) of the ankle. COMPARISON: 01/22/2022 FINDINGS: There is an oblique fracture within the distal fibular diaphysis associated with a new plate and screw fixation device. The alignment is anatomic. There are surgical lona projecting over the soft tissues lateral to the distal fibula. Normal visualized distal tibia . Normal tibiotalar articulation and ankle mortise. Normal visualized talus and calcaneus. There are degenerative changes of the midfoot. The soft tissue structures are unremarkable. RAD/Ankle min 3 Views IMPRESSION: Distal fibular fracture associated with a plate and screw fixation device, grossly anatomic in alignment. Electronically Signed: Viviane Choudhury MD at 16:24 EDT ,
[2022-01-24 10:13] VITALS: BP 149/70; PULSE 94; RESP 16; TEMP 37.6; O2SAT 96
--- NOTE | 2022-01-24 10:19 | PCM.PROGNOTE ---
Subjective Subjective Patient 1 day postop from right lower extremity ankle ORIF. Patient had some confusion disorientation over the night. This led to excessive weightbearing on the site. At current patient was resting comfortably. She denied any pain or constitutional symptoms. Patient is voiding urine and passing gas. 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 No other complaints at this time Objective Data Objective Data Vital Signs: Vital Signs Temp Pulse Resp BP Pulse Ox O2 Del Method 99.6 F H 94 16 149/70 H 96 Room Air 01/24/22 10:13 01/24/22 10:13 01/24/22 10:13 01/24/22 10:13 01/24/22 10:13 01/24/22 10:13 Oxygen Delivery Method Room Air Weight: 91.9 kg Body Mass Index (BMI) 35.9 Intake & Output: Intake and Output for Last 24 Hours 01/22/22 01/23/22 01/24/22 23:59 23:59 23:59 Intake Total 400 / 400 2224.58 / 2224.58 Output Total 650 / 1450 1650 / 1650 Balance 400 / 400 1574.58 / 774.58 -1650 / -1650 Lab / Micro Data Result Diagrams: 01/24/22 05:30 01/24/22 05:30 Labs: Laboratory Results - last 24 hr 01/23/22 06:15: Urine Color Straw, Urine Clarity Sl. Cloudy, Urine pH 6.0, Ur Specific [place] 1.010, Urine Protein Negative, Urine Glucose (UA) Normal, Urine Ketones Negative, Urine Occult Blood 10 H, Urine Nitrite Positive H, Urine Bilirubin Negative, Urine Urobilinogen Normal, Ur Leukocyte Esterase 500 H, Urine RBC 0 SEEN, Urine WBC 5-10 SEEN, Ur Squamous Epith Cells 0-5 SEEN, Urine Bacteria 4+, Urine Mucus 0 SEEN 01/24/22 05:30: WBC 11.0, RBC 3.60 L, Hgb 12.1, Hct 35.4 L, MCV 98.3, MCH 33.6 H, MCHC 34.2, RDW Std Deviation 47.6 H, RDW Coeff of Denise 13.2, Plt Count 207, MPV 9.7, Immature Gran % (Auto) 0.400, Neut % (Auto) 86.0 H, Lymph % (Auto) 5.3 L, [place] % (Auto) 8.2, Eos % (Auto) 0.0, Baso % (Auto) 0.1, Absolute Neuts (auto) 9.5 H, Absolute Lymphs (auto) 0.59 L, Nucleated RBC % 0, Differential Comment SCANNED 01/24/22 05:30: Sodium 142, Potassium 3.5, Chloride 107, Carbon Dioxide 25.0, Anion Gap 10, BUN 16, Creatinine 1.19 H, Estim Creat Clear Calc 34.31, Est GFR (MDRD) Af Amer 57 L, Est GFR (MDRD) Non-Af 47 L, BUN/Creatinine Ratio 13.4, Glucose 125 H, Calcium 8.5 Radiography Diagnostic Testing: Radiology Impression Ankle X-Ray 01/23/22 13:00 IMPRESSION: Please refer to operative report for details. Electronically Signed: Saul Henry MD at 15:08 EDT Reading Location ID and State: [facility] / [place] Tel , Service support , Physical Exam Narrative Patient demonstrating disorientation with regards to place and time.. Patient seen bedside. Neurovascular status intact to digits of the right foot. Splint was left and left intact. No strikethrough. No pain with calf squeeze or palpation popliteal fossa patient able to actively move her digits. Assessment & Plan Assessment/Plan (1) Closed fracture of lateral malleolus of right ankle: PLAN: Patient examined evaluated all fine discussed with patient in detail. Repeat radiographs were ordered of the right lower extremity to ensure maintenance of intraoperative reduction. Reduction was noted to be maintained at this time. Patient received a Cam walking boot [id number] today. Ideally patient should would maintain a nonweightbearing status for the next 2 to 4 weeks to allow for fracture healing. If patient is having trouble with this we will transition to cam walking boot for partial weightbearing assisted by a walker. But this may delay healing slightly but is an option for expediting patient's ambulatory status. Plan is for discharge to halfway facility. Medicine is on board and is looking into any possible medical medication interactions that may cause this patient's disorientation. Also treating the patient for a UTI. Patient had significant life event which she lost her 2 weeks prior and suffered this ankle injury on 01/22/2022. These 2 events have seemed to make the patient significantly depressed. Patient may require counseling and possible medical treatment for this. Will continue to follow the patient daily.
--- NOTE | 2022-01-24 10:33 | PN.HOSP_ITS ---
Subjective Subjective Patient seen and examined. She was noted to be significantly confused overnight, and got a bit aggressive with staff. She was also ambulating on her affected leg. She remains confused this morning. She didnt know where she was, though she was alert and oriented to person and time. She denied any fever, though she is noted to have a mild fever of 99.6F. She denied any cough, chest pain, palpitations, dizziness, nausea, vomiting or diarrhea. Review of systems is otherwise negative. Objective Data Objective Data Vital Signs: Vital Signs Temp Pulse Resp BP Pulse Ox O2 Del Method 99.6 F H 94 16 149/70 H 96 Room Air 01/24/22 10:13 01/24/22 10:13 01/24/22 10:13 01/24/22 10:13 01/24/22 10:13 01/24/22 10:13 Oxygen Delivery Method Room Air Weight: 202 lb 9.677 oz Body Mass Index (BMI) 35.9 Intake & Output: Intake and Output for Last 24 Hours 01/22/22 01/23/22 01/24/22 23:59 23:59 23:59 Intake Total 400 / 400 2224.58 / 2224.58 Output Total 650 / 1450 1650 / 1650 Balance 400 / 400 1574.58 / 774.58 -1650 / -1650 Lab / Micro Data Result Diagrams: 01/24/22 05:30 01/24/22 05:30 Labs: Laboratory Results - last 24 hr 01/23/22 06:15: Urine Color Straw, Urine Clarity Sl. Cloudy, Urine pH 6.0, Ur Specific [place] 1.010, Urine Protein Negative, Urine Glucose (UA) Normal, Urine Ketones Negative, Urine Occult Blood 10 H, Urine Nitrite Positive H, Urine Bilirubin Negative, Urine Urobilinogen Normal, Ur Leukocyte Esterase 500 H, Urine RBC 0 SEEN, Urine WBC 5-10 SEEN, Ur Squamous Epith Cells 0-5 SEEN, Urine Bacteria 4+, Urine Mucus 0 SEEN 01/24/22 05:30: WBC 11.0, RBC 3.60 L, Hgb 12.1, Hct 35.4 L, MCV 98.3, MCH 33.6 H , MCHC 34.2, RDW Std Deviation 47.6 H, RDW Coeff of Denise 13.2, Plt Count 207, MPV 9.7, Immature Gran % (Auto) 0.400, Neut % (Auto) 86.0 H, Lymph % (Auto) 5.3 L, [place] % (Auto) 8.2, Eos % (Auto) 0.0, Baso % (Auto) 0.1, Absolute Neuts (auto) 9.5 H, Absolute Lymphs (auto) 0.59 L, Nucleated RBC % 0, Differential Comment SCANNED 01/24/22 05:30: Sodium 142, Potassium 3.5, Chloride 107, Carbon Dioxide 25.0, Anion Gap 10, BUN 16, Creatinine 1.19 H, Estim Creat Clear Calc 34.31, Est GFR (MDRD) Af Amer 57 L, Est GFR (MDRD) Non-Af 47 L, BUN/Creatinine Ratio 13.4, Glucose 125 H, Calcium 8.5 Micro: Microbiology 01/23/22 06:15 Urine, Clean Catch Urine Culture - Preliminary GNR lactose laminator Radiography Diagnostic Testing: Radiology Impression Ankle X-Ray 01/23/22 13:00 IMPRESSION: Please refer to operative report for details. Electronically Signed: Saul Henry MD at 15:08 EDT Reading Location ID and State: [facility] / [place] Tel , Service support , Physical Exam Const alert and no apparent distress Orientation / Consciousness: confused and disoriented HEENT normocephalic, head/scalp atraumatic, hearing grossly normal bilaterally and moist oral mucous membranes Head and Scalp: normocephalic Eyes PERRL, EOMs intact bilaterally and conjunctivae normal Neck no lymphadenopathy and supple Resp normal respiratory effort, no retractions, no use of accessory muscles and clear to auscultation bilaterally Cardio S1 normal heart sound, S2 normal heart sound and no murmurs Cardio Narrative: Afib, rate controlled GI normal to inspection, nondistended, normoactive bowel sounds, soft to palpation, non-tender and non-distended Extremity Extremity Narrative: RLE wrapped in bandage. Neuro oriented x3, CN's II-XII intact bilaterally and no focal motor deficits Sensorium / Orientation: awake, alert and oriented to person Psych Psych Narrative: confused Assessment & Plan Assessment/Plan (1) Bimalleolar fracture of right ankle: PLAN: Plan #Right ankle fracture due to mechanical fall * podiatry on board * s/p ORIF of right ankle fracture * today is POD 1 * had excessive weight bearing on the affected foot as she was ambulating aroun d. * per podiatry, to be nonweight bearing for 2-4 weeks. * discuss with podiatry about resuming eliquis today. * #UTI * urinalysis showed evidence of UTI * patient on IV ceftriaxone. * urine culture growing gram negative lactose laminator; await speciation * #Acute metabolic encephalopathy * patient was quite confused overnight. Had excessive weight bearing on affected extremity * this may be due to the UTI * will monitor for improvement as the UTI resolves * #Afib * EKG shows afib, rate controlled. * continue metoprolol * resume eliquis * #Rheumatoid arthritis * methotrexate and leucovorin * DVT prophylaxis: SCDs; resume eliquis Code status: full code * Charges/Coding Visit Charges Inpatient E&M: 44777 Subs Hosp L2
[2022-01-24] MEDS: Ceftriaxone 1 GM/50 mL Premix Q24 IV (12:50)
--- NOTE | 2022-01-24 14:18 | CM.ED ---
LOUIE was advised RN SERGIO Del Angel that patient may need SNF. Patient's daughter is coming from [place] on Wednesday. had recently . LOUIE was advised by Neli that patient had been agitated during the night and was yelling at people today to get out of my room and walking around the unit on her ankle (doing 3 laps). LOUIE had reviewed in network SNF provider for patient however Neli had advised not to give it to her currently due to her behavior and being unable to process the SNF list. Neli confirmed that patient is not going anywhere over the weekend. Plan: Weekday social worker palliative care to follow up Mary Jane HICKEY
[2022-01-24 15:35] VITALS: BP 141/59; PULSE 77; RESP 16; TEMP 36.8; O2SAT 100
[2022-01-24 20:49] VITALS: BP 131/70; PULSE 83; RESP 18; TEMP 36.8; O2SAT 97
[2022-01-24 21:15] VITALS: BP 131/70; PULSE 83; RESP 18; TEMP 36.8; O2SAT 97
[2022-01-24] MEDS: APIXABAN 5 MG TABLET PO (21:26)
[2022-01-25] VITALS (11 sets, daily range): BP systolic 119–142; BP diastolic 57–81; PULSE 82–88; RESP 18; TEMP 36.6–36.8; O2SAT 95–99
[2022-01-25 05:56] LABS: Absolute Neutrophil Count 5.8 X10^3/uL (2.0-7.7); Basophil# 0.03 X10^3/uL; Basophil% 0.3 % (0-1); Eosinophil# 0.03 X10^3/uL; Eosinophils% 0.3 % (0-5); Hematocrit 31.7 % (37-47); Lymphocyte % 20.1 % (19-41); Mean Corp Hgb Conc 34.7 g/dL (32-36); Mean Corpuscular Hgb 33.6 pg (27.0-32.0); Mean Corpuscular Volume 96.9 fL (81-99); Mean Platelet Vol. 9.6 fl (6.2-12.0); Monocyte# 1.26 X10^3/uL; Monocyte% 14.1 % (0-10); NRBC Flagged by Analyzer 0 % (0-5); Neutrophil # 5.82 X10^3/uL (2.7-7.7); Neutrophil % 65.1 % (47-70); Platelet Count 187 K/mm3 (150-450); RBC Distribution Width CV 13.5 % (11.6-14.6); RBC Distribution Width SD 48.3 fl (35.1-43.9); Red Blood Count 3.27 M/mm3 (4.2-5.4)
[2022-01-25 06:25] LABS: Anion Gap 8 (5-15); BUN 13 mg/dL (7-18); Calcium,Total 8.2 mg/dL (8.5-10.1); Chloride 110 mmol/L (98-107); Creatinine, Serum 0.81 mg/dL (0.55-1.02); EST Glomerular Filtration Rate 73 mL/min (>60); Est Glom Filt Rate - Afr Amer 88 mL/min (>60); Estimated Creatinine Clearance 50.41 ml/min; Glucose 76 mg/dL (74-106); Potassium 3.5 mmol/L (3.5-5.1); Sodium Level 144 mmol/L (136-145)
[2022-01-25] MEDS: Potassium Chloride Oral Tablet 20 MEQ PO (08:52)
[2022-01-25] MEDS: cloNIDine HCl 0.1 MG Tablet PO ×2 (09:05→21:51)
[2022-01-25] MEDS: APIXABAN 5 MG TABLET PO ×2 (09:05→21:51)
[2022-01-25] MEDS: Metoprolol(XL)Succ 200 MG Tablet PO (09:06)
[2022-01-25] MEDS: leucovorin 15 MG Tablet PO (09:06)
[2022-01-25] MEDS: buPROPion (XL) 150 MG TABLET.XL PO (09:07)
[2022-01-25] MEDS: Methotrexate 2.5 MG Tablet 12.5 MG PO (09:07)
--- NOTE | 2022-01-25 10:20 | PCM.PROGNOTE ---
Subjective Subjective 76-year-old female seen day 2 postop right ankle fracture ORIF. This was performed on 01/23/2022. Patient denies constitutional symptoms. Patient denies chest pain calf pain shortness of breath. Patient denies pain. Patient has no other complaints. Objective Data Objective Data Vital Signs: Vital Signs Temp Pulse Resp BP Pulse Ox O2 Del Method 98 F 88 18 138/80 H 98 Room Air 01/25/22 08:00 01/25/22 09:06 01/25/22 08:30 01/25/22 09:06 01/25/22 08:30 01/25/22 08:30 Oxygen Delivery Method Room Air Weight: 91.9 kg Body Mass Index (BMI) 35.9 Intake & Output: Intake and Output for Last 24 Hours 01/23/22 01/24/22 01/25/22 23:59 23:59 23:59 Intake Total 2224.58 / 2224.58 650 / 650 Output Total 650 / 1450 2049 / 2049 Balance 1574.58 / 774.58 -1400 / -1400 Lab / Micro Data Result Diagrams: 01/25/22 05:40 01/25/22 05:40 Labs: Laboratory Results - last 24 hr 01/25/22 05:40: WBC 9.0, RBC 3.27 L, Hgb 11.0 L, Hct 31.7 L, MCV 96.9, MCH 33.6 H, MCHC 34.7, RDW Std Deviation 48.3 H, RDW Coeff of Denise 13.5, Plt Count 187, MPV 9.6, Immature Gran % (Auto) 0.100, Neut % (Auto) 65.1, Lymph % (Auto) 20.1, [place] % (Auto) 14.1 H, Eos % (Auto) 0.3, Baso % (Auto) 0.3, Absolute Neuts (auto) 5.8, Absolute Lymphs (auto) 1.80, Nucleated RBC % 0 01/25/22 05:40: Sodium 144, Potassium 3.5, Chloride 110 H, Carbon Dioxide 26.0, Anion Gap 8, BUN 13, Creatinine 0.81, Estim Creat Clear Calc 50.41, Est GFR (MDRD) Af Amer 88, Est GFR (MDRD) Non-Af 73, BUN/Creatinine Ratio 16.0, Glucose 76, Calcium 8.2 L Micro: Microbiology 01/23/22 06:15 Urine, Clean Catch Urine Culture - Final Escherichia coli Radiography Diagnostic Testing: Radiology Impression Ankle X-Ray 01/24/22 09:35 IMPRESSION: Distal fibular fracture associated with a plate and screw fixation device, grossly anatomic in alignment. Electronically Signed: Viviane Choudhury MD at 16:24 EDT , Physical Exam Narrative Patient now AAO x3. Patient seen bedside. Neurovascular status intact to digits of the right foot. Splint was left and left intact. No strikethrough. No pain with calf squeeze or palpation popliteal fossa patient able to actively move her digits. Assessment & Plan Assessment/Plan (1) Closed fracture of lateral malleolus of right ankle: PLAN: Patient examined evaluated all fine discussed with patient in detail. Repeat radiographs taken 01/24/2022 yielded maintained intraoperative reduction with intact hardware. Patient will maintain nonweightbearing status for next 2 to 4 weeks at which time we will transition her to Cam walking boot assisted by walker. Is recommend patient recovers in a intermediate facility. Patient being treated for a UTI as a possible cause of patient's disorientation. Medicine managing this. Will continue to follow patient daily.
--- NOTE | 2022-01-25 10:38 | PN.HOSP_ITS ---
Subjective Subjective Patient seen and examined. She has no active complaints and had a much better night. She is not confused this morning. Review of systems is otherwise negative. Eliquis was resumed yesterday. Objective Data Objective Data Vital Signs: Vital Signs Temp Pulse Resp BP Pulse Ox O2 Del Method 98 F 88 18 138/80 H 98 Room Air 01/25/22 08:00 01/25/22 09:06 01/25/22 08:30 01/25/22 09:06 01/25/22 08:30 01/25/22 08:30 Oxygen Delivery Method Room Air Weight: 202 lb 9.677 oz Body Mass Index (BMI) 35.9 Intake & Output: Intake and Output for Last 24 Hours 01/23/22 01/24/22 01/25/22 23:59 23:59 23:59 Intake Total 2224.58 / 2224.58 650 / 650 Output Total 650 / 1450 2049 / 2049 Balance 1574.58 / 774.58 -1400 / -1400 Lab / Micro Data Result Diagrams: 01/25/22 05:40 01/25/22 05:40 Labs: Laboratory Results - last 24 hr 01/25/22 05:40: WBC 9.0, RBC 3.27 L, Hgb 11.0 L, Hct 31.7 L, MCV 96.9, MCH 33.6 H, MCHC 34.7, RDW Std Deviation 48.3 H, RDW Coeff of Denise 13.5, Plt Count 187, MPV 9.6, Immature Gran % (Auto) 0.100, Neut % (Auto) 65.1, Lymph % (Auto) 20.1, [place] % (Auto) 14.1 H, Eos % (Auto) 0.3, Baso % (Auto) 0.3, Absolute Neuts (auto) 5.8, Absolute Lymphs (auto) 1.80, Nucleated RBC % 0 01/25/22 05:40: Sodium 144, Potassium 3.5, Chloride 110 H, Carbon Dioxide 26.0, Anion Gap 8, BUN 13, Creatinine 0.81, Estim Creat Clear Calc 50.41, Est GFR (MDRD) Af Amer 88, Est GFR (MDRD) Non-Af 73, BUN/Creatinine Ratio 16.0, Glucose 76, Calcium 8.2 L Micro: Microbiology 01/23/22 06:15 Urine, Clean Catch Urine Culture - Final Escherichia coli Radiography Diagnostic Testing: Radiology Impression Ankle X-Ray 01/24/22 09:35 IMPRESSION: Distal fibular fracture associated with a plate and screw fixation device, grossly anatomic in alignment. Electronically Signed: Viviane Choudhury MD at 16:24 EDT Reading Location ID and State: [facility] / [place] Tel , Service support , Physical Exam Const alert, oriented x3 and no apparent distress General Appearance: cooperative Orientation / Consciousness: confused and disoriented HEENT normocephalic, head/scalp atraumatic, hearing grossly normal bilaterally and moist oral mucous membranes Head and Scalp: normocephalic Mouth: oral and palatal mucosa normal Eyes PERRL, EOMs intact bilaterally and conjunctivae normal Neck no lymphadenopathy and supple Resp normal respiratory effort, no retractions, no use of accessory muscles and clear to auscultation bilaterally Cardio S1 normal heart sound, S2 normal heart sound and no murmurs Cardio Narrative: Afib, rate controlled GI normal to inspection, nondistended, normoactive bowel sounds, soft to palpation, non-tender and non-distended Extremity no clubbing, cyanosis or edema Extremity Narrative: RLE wrapped in bandage. Neuro oriented x3, CN's II-XII intact bilaterally and no focal motor deficits Sensorium / Orientation: awake, alert and oriented to person Psych affect normal Psych Narrative: confused Assessment & Plan Assessment/Plan (1) Bimalleolar fracture of right ankle: PLAN: Plan #Right ankle fracture due to mechanical fall * podiatry on board * s/p ORIF of right ankle fracture * today is POD 2 * per podiatry, to be nonweight bearing for 2-4 weeks. * * #UTI * urinalysis showed evidence of UTI * patient on IV ceftriaxone. * urine culture growing E coli. * #Acute metabolic encephalopathy * this has largely resolved. * was likely due to UTI. * will monitor * * #Afib * EKG shows afib, rate controlled. * continue metoprolol * eliquis resumed * #Rheumatoid arthritis * methotrexate and leucovorin * DVT prophylaxis: on eliquis Code status: full code Disposition: patient deemed as needing SNF. Case management to help facilitate discharge. * Charges/Coding Visit Charges Inpatient E&M: 14661 Subs Hosp L2
[2022-01-25] MEDS: Ceftriaxone 1 GM/50 mL Premix Q24 IV (11:15)
[2022-01-25] MEDS: 0.9% Saline Lock 10 ML Syringe IV (11:20)
[2022-01-26] VITALS (8 sets, daily range): BP systolic 125–136; BP diastolic 50–72; PULSE 81–88; RESP 14–18; TEMP 36.6–37; O2SAT 96–99
[2022-01-26 05:01] LABS: Absolute Neutrophil Count 4.8 X10^3/uL (2.0-7.7); Basophil# 0.04 X10^3/uL; Basophil% 0.5 % (0-1); Eosinophils% 2.5 % (0-5); Hematocrit 33.1 % (37-47); Hemoglobin 11.1 g/dL (12.0-15.0); Lymphocyte % 21.6 % (19-41); Mean Corp Hgb Conc 33.5 g/dL (32-36); Mean Corpuscular Hgb 32.8 pg (27.0-32.0); Mean Corpuscular Volume 97.9 fL (81-99); Mean Platelet Vol. 9.4 fl (6.2-12.0); NRBC Flagged by Analyzer 0 % (0-5); Neutrophil # 4.81 X10^3/uL (2.7-7.7); Platelet Count 192 K/mm3 (150-450); RBC Distribution Width CV 13.7 % (11.6-14.6); RBC Distribution Width SD 49.2 fl (35.1-43.9); Red Blood Count 3.38 M/mm3 (4.2-5.4); White Blood Count 7.9 K/mm3 (4.4-11.0)
[2022-01-26 05:25] LABS: Anion Gap 5 (5-15); BUN 14 mg/dL (7-18); BUN/Creat Ratio 15.9 RATIO (10-20); Calcium,Total 8.2 mg/dL (8.5-10.1); Chloride 110 mmol/L (98-107); Creatinine, Serum 0.88 mg/dL (0.55-1.02); EST Glomerular Filtration Rate 67 mL/min (>60); Est Glom Filt Rate - Afr Amer 81 mL/min (>60); Glucose 96 mg/dL (74-106); Potassium 3.8 mmol/L (3.5-5.1); Sodium Level 143 mmol/L (136-145)
[2022-01-26] MEDS: Potassium Chloride Oral Tablet 20 MEQ PO (08:00)
[2022-01-26] MEDS: APIXABAN 5 MG TABLET PO ×2 (09:22→21:28)
[2022-01-26] MEDS: Metoprolol(XL)Succ 200 MG Tablet PO (09:23)
[2022-01-26] MEDS: cloNIDine HCl 0.1 MG Tablet PO ×2 (09:23→21:28)
[2022-01-26] MEDS: buPROPion (XL) 150 MG TABLET.XL PO (09:23)
[2022-01-26] MEDS: Ceftriaxone 1 GM/50 mL Premix Q24 IV (09:25)
--- NOTE | 2022-01-26 11:00 | CASEMGMT ---
Social Work Per RNCM assessment. Pt states she does have a living will and health care POA naming her daugther Xochitl. Pt made aware documents not on file and requestd pt bring documents in for scanning. POOL [place]
--- NOTE | 2022-01-26 12:05 | CASEMGMT ---
Social Work SW in to meet pt. Introduced Self and role at the hospital. Pt willing to discuss discharge plan. A printed list of SNF providers including quality and resources use date that is consistent with patient's preferred geographical region, medical needs, and insurances network were provided via the [facility].? Pt chose [facility] as first choice and [facility] as second choice. SW sent referral to Vicky at TCU. TCU unable to take pt at this time. LOUIE notified Sanam Lubin, discharge social research assistant of pt second choice. Referral to be sent. PLAN: [facility], pending acceptance and precert POOL Hutton
--- NOTE | 2022-01-26 12:24 | PCM.PROGNOTE ---
Subjective Subjective 76-year-old female day 3 postop doing well pain controlled no constitutional's patient voiding urine positive bowel movement. Objective Data Objective Data Vital Signs: Vital Signs Temp Pulse Resp BP Pulse Ox O2 Del Method 98.2 F 85 16 136/57 H 99 Room Air 01/26/22 10:00 01/26/22 10:00 01/26/22 10:00 01/26/22 10:00 01/26/22 10:00 01/26/22 10:00 Oxygen Delivery Method Room Air Weight: 91.9 kg Body Mass Index (BMI) 35.9 Intake & Output: Intake and Output for Last 24 Hours 01/24/22 01/25/22 01/26/22 23:59 23:59 23:59 Intake Total 650 / 650 650 / 650 50 / 50 Output Total 2049 Balance -1400 / -1400 650 / 650 50 / Lab / Micro Data Result Diagrams: 01/26/22 04:50 01/26/22 04:50 Labs: Laboratory Results - last 24 hr 01/26/22 04:50: WBC 7.9, RBC 3.38 L, Hgb 11.1 L, Hct 33.1 L, MCV 97.9, MCH 32.8 H, MCHC 33.5, RDW Std Deviation 49.2 H, RDW Coeff of Denise 13.7, Plt Count 192, MPV 9.4, Immature Gran % (Auto) 0.400, Neut % (Auto) 61.0, Lymph % (Auto) 21.6, [place] % (Auto) 14.0 H, Eos % (Auto) 2.5, Baso % (Auto) 0.5, Absolute Neuts (auto) 4.8, Absolute Lymphs (auto) 1.70, Nucleated RBC % 0 01/26/22 04:50: Sodium 143, Potassium 3.8, Chloride 110 H, Carbon Dioxide 28.0, Anion Gap 5, BUN 14, Creatinine 0.88, Estim Creat Clear Calc 46.40, Est GFR (MDRD) Af Amer 81, Est GFR (MDRD) Non-Af 67, BUN/Creatinine Ratio 15.9, Glucose 96, Calcium 8.2 L Micro: Microbiology 01/23/22 06:15 Urine, Clean Catch Urine Culture - Final Escherichia coli Physical Exam Narrative Patient now AAO x3. Patient seen bedside. Neurovascular status intact to digits of the right foot. Splint was left and left intact. No strikethrough. No pain with calf squeeze or palpation popliteal fossa patient able to actively move her digits. Assessment & Plan Assessment/Plan (1) Closed fracture of lateral malleolus of right ankle: PLAN: Patient examined evaluated all fine discussed with patient in detail. Repeat radiographs taken 01/24/2022 yielded maintained intraoperative reduction with intact hardware. Patient will maintain nonweightbearing status for next 2 to 4 weeks at which time we will transition her to Cam walking boot assisted by walker. Is recommend patient recovers in a half-way facility. Patient being treated for a UTI as a possible cause of patient's disorientation. Medicine managing this. Patient confusion resolved at this time. Patient awaiting SNF precertification. Will continue to follow closely.
--- NOTE | 2022-01-26 13:10 | CASEMGMT ---
Discharge Instructional Resource Teacher Sanam everett/harry cardiology physician assistant sent a referral to Vivian at [facility] via [facility]. Will follow up. Plan: [facility], Waiting Acceptance Sanam Lubin Discharge Instructional Resource Teacher
--- NOTE | 2022-01-26 14:48 | CASEMGMT ---
Social Work SW in to inform pt that TCU unable to accept at this time. SW shared referral was sent to second choice[facility] reviewing case now. Pt voiced understanding. PLAN: [facility]< pending acceptance and precert POOL Hutton
--- NOTE | 2022-01-26 15:48 | CASEMGMT ---
Discharge Systems Requirements Planner Vivian from [facility] reached out. Patient has been accepted at [facility]. Pre-cert has been started. Plan: [facility], Pending pre-cert. Sanam Lubin Discharge Systems Requirements Planner
--- NOTE | 2022-01-26 18:05 | PN.HOSP_ITS ---
Subjective Subjective Patient was seen and examined today, we are currently awaiting confirmation of acceptance at a penitentiary facility for the patient. Patient has no complaints of any fever, chills, shortness of breath. Objective Data Objective Data Vital Signs: Vital Signs Temp Pulse Resp BP Pulse Ox O2 Del Method 98.6 F 83 14 125/72 H 99 Room Air 01/26/22 15:51 01/26/22 15:51 01/26/22 15:51 01/26/22 15:51 01/26/22 15:51 01/26/22 15:51 Oxygen Delivery Method Room Air Weight: 91.9 kg Body Mass Index (BMI) 35.9 Intake & Output: Intake and Output for Last 24 Hours 01/24/22 01/25/22 01/26/22 23:59 23:59 23:59 Intake Total 650 / 650 650 / 650 50 / 50 Output Total 2049 / 2049 Balance -1400 / -1400 650 / 650 50 / 50 Lab / Micro Data Result Diagrams: 01/26/22 04:50 01/26/22 04:50 Labs: Laboratory Results - last 24 hr 01/26/22 04:50: WBC 7.9, RBC 3.38 L, Hgb 11.1 L, Hct 33.1 L, MCV 97.9, MCH 32.8 H, MCHC 33.5, RDW Std Deviation 49.2 H, RDW Coeff of Denise 13.7, Plt Count 192, MPV 9.4, Immature Gran % (Auto) 0.400, Neut % (Auto) 61.0, Lymph % (Auto) 21.6, [place] % (Auto) 14.0 H, Eos % (Auto) 2.5, Baso % (Auto) 0.5, Absolute Neuts (auto) 4.8, Absolute Lymphs (auto) 1.70, Nucleated RBC % 0 01/26/22 04:50: Sodium 143, Potassium 3.8, Chloride 110 H, Carbon Dioxide 28.0, Anion Gap 5, BUN 14, Creatinine 0.88, Estim Creat Clear Calc 46.40, Est GFR (MDRD) Af Amer 81, Est GFR (MDRD) Non-Af 67, BUN/Creatinine Ratio 15.9, Glucose 96, Calcium 8.2 L Micro: Microbiology 01/23/22 06:15 Urine, Clean Catch Urine Culture - Final Escherichia coli Physical Exam Const alert, oriented x3 and no apparent distress General Appearance: cooperative, well kempt and well developed Orientation / Consciousness: awake, oriented to person, oriented to place and oriented to time HEENT normocephalic, head/scalp atraumatic and moist oral mucous membranes Eyes PERRL, EOMs intact bilaterally and conjunctivae normal Neck supple, no JVD, thyroid normal and no carotid bruits General: trachea midline Resp normal respiratory effort, no retractions, no use of accessory muscles and clear to auscultation bilaterally Auscultation: Negative for rales, rhonchi or wheezes Cardio S1 normal heart sound, S2 normal heart sound, no murmurs, no rub and no gallops Cardio Narrative: Heart rate and rhythm is irregular GI normal to inspection, nondistended, normoactive bowel sounds, soft to palpation, non-tender and non-distended Extremity Extremity Narrative: Right lower leg is wrapped with surgical dressing around the foot and ankle area Skin no rashes or lesions noted General Skin Exam: no breakdown Neuro oriented x3, CN's II-XII intact bilaterally, no focal motor deficits and no sensory deficits noted Sensorium / Orientation: awake and alert Speech: speech normal Psych affect normal Assessment & Plan Assessment/Plan (1) Bimalleolar fracture of right ankle: PLAN: Plan 1. Bimalleolar fracture of the right ankle-status post open reduction with internal fixation right distal fibula-continue PT and OT, await placement in a penitentiary facility for short-term rehab services #2 chronic atrial fibrillation-patient remains on anticoagulation and rate control medication #3 acute cystitis from E. coli-patient's Rocephin will be stopped, she will be placed on Keflex #4 essential hypertension-patient will remain on her current blood pressure medication #5 chronic depression-patient is currently on Wellbutrin Charges/Coding Visit Charges Inpatient E&M: 10812 Subs Hosp L2
[2022-01-26] MEDS: Cephalexin 500 MG Capsule PO (21:28)
[2022-01-27 03:54] VITALS: BP 147/79; PULSE 77; RESP 18; TEMP 36.7; O2SAT 98
[2022-01-27] MEDS: APIXABAN 5 MG TABLET PO (08:10)
[2022-01-27] MEDS: Potassium Chloride Oral Tablet 20 MEQ PO (08:10)
[2022-01-27 10:00] VITALS: BP 142/75; PULSE 92; RESP 16; TEMP 36.7; O2SAT 97
[2022-01-27 10:33] VITALS: BP 142/75; PULSE 92
[2022-01-27] MEDS: Metoprolol(XL)Succ 200 MG Tablet PO (10:33)
[2022-01-27] MEDS: cloNIDine HCl 0.1 MG Tablet PO (10:34)
[2022-01-27] MEDS: Cephalexin 500 MG Capsule PO (10:34)
[2022-01-27] MEDS: buPROPion (XL) 150 MG TABLET.XL PO (10:34)
--- NOTE | 2022-01-27 11:06 | CASEMGMT ---
Discharge Sheetmetal Worker Vivian from [facility] reached out. Pre-cert has been obtained. Patient can go when medically ready. LOUIE Pelayo notified and Dr. Chacon. Plan: [facility], When medically ready. Sanam Lubin Discharge Sheetmetal Worker
--- NOTE | 2022-01-27 11:35 | CASEMGMT ---
Addendum entered by Leanna Garcia 01/27/22 15:38: TC to pt dtr, the ramp is installed and she has practiced using with the sales and in home delivery specialist. Pt has a boot from wound nurse. [facility] notified. Pt nurse states dtr can fruit or nut picker pt at any time. Dtr aware. Pt dtr states if the ramp is medically necessary and a script can be given, her cost changes for the renting of it. Hospitalist aware and agreeable. Nurse aware pt will need script given at dc. Addendum entered by Leanna Garcia 01/27/22 14:15: Received tc from [facility], pt is accepted for SOC day after dc. Pt aware of [facility] acceptance. TC to pt dtr, she states that the ramp will be delivered within an hour. Updated pt nurse of this as well as HHC. Nurse to verify with pt dtr that this ramp is secure prior to dc. Provided nurse with dtr's phone number. Dorothy Killian [phone]. Addendum entered by Leanna Garcia 01/27/22 13:42: SHAHID HILL in to pt room. Pt has chosen [facility] followed by [facility] and [facility]. TC to [facility] at [facility], referral made at this time. Will await acceptance. Addendum entered by Leanna Garcia 01/27/22 11:54: Received tc from pt dtr. She confirms that she will be staying with the patient. She is working on getting a ramp, she is waiting to speak with the company for the ramp to verify that it can be delivered today. She plans to borrow for a month. She states she is borrowing a w/c from the [employer]. She will call SHAHID HILL back when this is confirmed. Original Note: SHAHID HILL in to pt room as therapy made CM aware that pt wishes to return home with dtr. Pt sitting up in chair. Pt states dtr has a w/c and ramp and is able to stay with patient. Pt gave dtr's phone number. Discussed HHC if pt returns home, pt agreeable to this. Patient was provided a list of [facility] providers including quality and resource use data and consistent with the patient?s preferred geographic region, medical needs, and insurance network were provided from the [employer] Guide. Pt to review list and SHAHID HILL to check back. TC to pt dtr with phone number given, no answer and vm unidentified. Left generic message with returned call information.
--- NOTE | 2022-01-27 14:03 | DCINST_ITS ---
Discharge Instructions Diet Discharge Diet: No restrictions Activity Discharge Activity: - (protected weight bearing on right foot while wearing boot and using a walker) Weight Bearing Status: - (see above for weight bearing restriction) Dressing / Incision Change Dressing in: do not change dressing Follow Up Care Test Results: Test results from this visit will be discussed in further detail at your follow- up appointment, if applicable. Discharge Plan Admission Admit Date/Time: 01/22/22 16:54 Primary Reason for Your Visit: right ankle fracture Attending Provider: Sami Chacon Primary Care Provider: Danica Perez Consulting Providers: Eros Agarwal ; Shilpi Moreira Discharge Orders/Prescriptions Prescriptions: Continued clonidine HCl 0.1 mg tablet 0.1 mg PO BID metoprolol succinate 200 mg tablet extended release 24 hr 200 mg PO DAILY tramadol 50 mg tablet 50 mg PO BID PRN (Reason: Pain) leucovorin calcium 15 mg tablet 15 mg PO MO potassium chloride [Klor-Con M20] 20 mEq tablet,ER particles/crystals 20 meq PO DAILY methotrexate sodium 2.5 mg tablet 12.5 mg PO QWEEK gabapentin 100 mg capsule 200 mg PO QHS Eliquis 5 mg tablet 5 mg PO BID bupropion HCl 150 mg tablet extended release 24 hr 150 mg PO DAILY Referrals / Follow Up: Eros Agarwal DPM [Med Staff - Active Staff] - In 1 Week (office will call to schedule appointment-call on if his office has not contacted you) Danica Perez MD [Primary Care Provider] - See Referral Note (at regular appointment time) Disposition Disposition (needs filled in before D/C Order can be placed): Home, Self Care
--- NOTE | 2022-01-27 14:12 | WOUNDNOTE ---
wound photo: right lateral ankle
--- NOTE | 2022-01-27 14:13 | WOUNDNOTE ---
skin photo: right medial foot/ankle
--- NOTE | 2022-01-27 14:52 | DS.PCM_ITS ---
Providers Date of Admission: 01/22/22 Date of Discharge: 01/27/22 Primary Care Physician: Dr. Danica ePrez MD Consultations 01/22/22 17:56 Consult: Podiatry Routine Consulting Provider: Eros Agarwal Reason for Consult: right ankle fracture EMERGENT Consult: No MD Notified: Yes Date Notified: 01/22/22 Time Notified: 17:08 Method of Notification: Dr Agarwal already saw Reason For Visit: ANKLE FRACTURE Diagnosis Discharge Diagnosis (1) Bimalleolar fracture of right ankle: Status: Acute Code(s): S82.841A - Displaced bimalleolar fracture of right lower leg, initial encounter for closed fracture Plan 1. Bimalleolar fracture of the right ankle-status post open reduction with internal fixation right distal fibula-continue PT and OT, await placement in a fdc facility for short-term rehab services #2 chronic atrial fibrillation-patient remains on anticoagulation and rate control medication #3 acute cystitis from E. coli-patient's Rocephin will be stopped, she will be placed on Keflex #4 essential hypertension-patient will remain on her current blood pressure medication #5 chronic depression-patient is currently on Wellbutrin Medications at Discharge Home Medications apixaban 5 mg tablet (Eliquis) 5 mg PO BID blood thinner 01/22/22 bupropion HCl 150 mg 24 hr tablet, extended release 150 mg PO DAILY mood 01/22/22 clonidine HCl 0.1 mg tablet 0.1 mg PO BID bp 01/22/22 gabapentin 100 mg capsule 200 mg PO QHS nerve pain 01/22/22 leucovorin calcium 15 mg tablet 15 mg PO MO supplement 01/22/22 methotrexate sodium 2.5 mg tablet 12.5 mg PO QWEEK RA 01/22/22 metoprolol succinate 200 mg tablet,extended release 24 hr 200 mg PO DAILY bp 01/22/22 potassium chloride 20 mEq tablet,extended release(part/cryst) (Klor-Con M) 20 meq PO DAILY supplement 01/22/22 tramadol 50 mg tablet 50 mg PO BID PRN Pain 01/22/22 Hospital Course Operations - (Open reduction internal fixation right distal fibula fracture-01/23/2022) Procedures None Summary of Care Provided Minutes Spent on Discharge: 32 Hospital Course: 76-year-old white female seen in the emergency room at [facility] complaining of right ankle and right knee pain after rolling her ankle when she stepped off a curb. Patient denied any other injuries, she was unable to ambulate. Work-up in the emergency room showed her to have a right bimalleolar fracture, she was also noted to have a urinary tract infection was placed on IV antibiotics initially, she was admitted to [place] [address] and seen in consultation by podiatry who took her to surgery and performed an open reduction of a right distal fibular fracture. Patient was seen by PT and OT following her surgery, there were no complications, on 01/27/2022, patient was seen and examined: On examination she appeared in good health and spirits, she does not appear to be in any distress. Vital signs as documented. Skin warm and dry and without overt rashes. Neck without JVD, thyroid appears normal, trachea is midline, neck is supple. Lungs clear, normal air movement was noted. Heart exam notable for regular rhythm, normal sounds and absence of murmurs, rubs or gallops. Abdomen unremarkable and without evidence of organomegaly, masses, or abdominal aortic enlargement, bowel sounds are present in all 4 quadrants, no abdominal tenderness was noted. Extremities nonedematous, no cyanosis was noted, no clubbing was noted. Neuro: Cranial nerves II through XII are grossly intact, no focal motor deficits were noted, sensation to light touch and pinprick is intact, motor exam 5/5 throughout. Psych: Patient is alert and oriented x3, she does not appear anxious or depressed, she does not appear agitated. Patient was felt to be stable for discharge home on 01/27/2022. Weight / BMI Weight Weight: 91.9 kg Body Mass Index (BMI) 35.9 ABG / Lab / Microbiology Data Result Diagrams: 01/26/22 04:50 01/26/22 04:50 Microbiology: Microbiology 01/23/22 06:15 Urine, Clean Catch Urine Culture - Final Escherichia coli D/C Instructions Discharge Diet: No restrictions Weight Bearing Status: - (see above for weight bearing restriction) Meaningful Use Info Meaningful Use Diagnoses (Choose all that apply): None applicable Discharge Plan Admission Admit Date/Time: 01/22/22 16:54 Primary Reason for Your Visit: right ankle fracture Attending Provider: Sami Chacon Primary Care Provider: Danica Perez Consulting Providers: Eros Agarwal ; Shilpi Moreira Discharge Orders/Prescriptions Prescriptions: Continued clonidine HCl 0.1 mg tablet 0.1 mg PO BID metoprolol succinate 200 mg tablet extended release 24 hr 200 mg PO DAILY tramadol 50 mg tablet 50 mg PO BID PRN (Reason: Pain) leucovorin calcium 15 mg tablet 15 mg PO MO potassium chloride [Klor-Con M20] 20 mEq tablet,ER particles/crystals 20 meq PO DAILY methotrexate sodium 2.5 mg tablet 12.5 mg PO QWEEK gabapentin 100 mg capsule 200 mg PO QHS Eliquis 5 mg tablet 5 mg PO BID bupropion HCl 150 mg tablet extended release 24 hr 150 mg PO DAILY Referrals / Follow Up: Eros Agarwal DPM [Med Staff - Active Staff] - In 1 Week (office will call to schedule appointment-call on if his office has not contacted you) Danica Perez MD [Primary Care Provider] - See Referral Note (at regular appointment time) Disposition Disposition (needs filled in before D/C Order can be placed): Home Health Service Charges/Coding Visit Charges Inpatient E&M: 16729 Disch Hosp
--- NOTE | 2022-01-27 15:00 | CASEMGMT ---
Social Work SW called Vivian at [facility] to update that pt is now discharging home vs. to SNF. Left message for Vivian with details. Pt Disposition: Home with C PO[facility]
--- NOTE | 2022-01-27 15:43 | WOUNDNOTE ---
Patient placed in a CAM walking boot as ordered. papers signed.
[2022-01-27 15:54] VITALS: BP 127/70; PULSE 95; RESP 16; TEMP 36.9; O2SAT 98
== END 2022-01-27 16:30 | disposition home health service (06) | DRG 492 ==
LOC: ED 17:01 → MS3 17:33
PROVIDERS: Family Medicine; Podiatrist; Admitting Provider Student in an Organized Health Care Education/Training Program; Emergency Provider Student in an Organized Health Care Education/Training Program; PCP Family Medicine Sports Medicine; Visit Provider Internal Medicine
PROC: 0QSJ04Z Reposition Right Fibula with Internal Fixation Device, Open Approach (ICD-10-PCS; principal; 2022-01-23 12:40)
DX: S82.841A Displaced bimalleolar fracture of right lower leg, initial encounter for closed fracture (principal); G93.41 Metabolic encephalopathy; I48.20 Chronic atrial fibrillation, unspecified; N30.00 Acute cystitis without hematuria; M06.9 Rheumatoid arthritis, unspecified; I10 Essential (primary) hypertension; W10.1XXA Fall (on)(from) sidewalk curb, initial encounter; S86.811A Strain of other muscle(s) and tendon(s) at lower leg level, right leg, initial encounter; F41.1 Generalized anxiety disorder; B96.20 Unspecified Escherichia coli [E. coli] as the cause of diseases classified elsewhere; F32.A Depression, unspecified; M81.0 Age-related osteoporosis without current pathological fracture; Z63.4 Disappearance and death of family member; Z79.01 Long term (current) use of anticoagulants; Z79.899 Other long term (current) drug therapy; Z96.659 Presence of unspecified artificial knee joint
CPT/HCPCS: 36415; 71045; 73560; 73610; 73700; 76000; 80048; 80053; 81001; 85025; 85027; 87077; 87086; 87088; 87186; 93005; 97110; 97116; 97162; 97165; 97530; 97535; 97803; 99282; C1713; J7030; J7040; A4216; J2405; J8610

== ENCOUNTER 2022-02-12 17:14 | Observation (INO) | payer MEDICARE, SELFPAY ==
[2022-02-12] VITALS (8 sets, daily range): BP systolic 122–141; BP diastolic 51–83; PULSE 76–98; RESP 16–18; TEMP 36.3–37; O2SAT 93–100; BMI 35.4
[2022-02-12 12:23] LABS: Mucous, Urine 0 SEEN /hpf (<or=2+); Red Blood Cells-Urine 0 SEEN /hpf (0-5); White Blood Cells 0 SEEN /hpf (0-5)
[2022-02-12 12:33] LABS: Color, Urine Yellow (Yellow); Glucose, Dipstick Normal (Normal); Ketone-Dipstick 5 mg/dl (Negative); Leukocyte Esterase-Dipstick 25 /ul (Negative); Nitrite-Dipstick Negative (Negative); Occult Blood-Urine 10 /ul (Negative); Protein-Dipstick 30 mg/dl (Negative); Specific Gravity, Urine 1.025 (1.002-1.030); Urine Bilirubin Dipstick Negative (Negative); Urine Clarity Sl. Cloudy (Clear); Urine Urobilinogen Normal (Normal)
[2022-02-12] MEDS: Lactated Ringers 1,000 ML 100 ML IV (12:35)
[2022-02-12 12:41] LABS: Bacteria RARE /hpf (None Seen); Squamous Epithelial Cells - UA 0-5 SEEN /hpf (5-10)
[2022-02-12 12:54] LABS: International Normalized Ratio 1.2
[2022-02-12 13:01] LABS: ALB/GLOB Ratio 0.8 RATIO (0.9-2.4); AST(SGOT) 17 U/L (15-37); Alanine Aminotransfer ALT/SGPT 18 U/L (13-56); Albumin, Serum 3.4 g/dL (3.2-5.0); Alkaline Phosphatase 109 U/L (45-117); Anion Gap 7 (5-15); BUN 18 mg/dL (7-18); Calcium,Total 9.4 mg/dL (8.5-10.1); Chloride 107 mmol/L (98-107); EST Glomerular Filtration Rate 47 mL/min (>60); Est Glom Filt Rate - Afr Amer 56 mL/min (>60); Estimated Creatinine Clearance 34.02 ml/min; Globulin 4.1 g/dL (2.2-4.2); Glucose 97 mg/dL (74-106); Potassium 4.3 mmol/L (3.5-5.1); Protein, Total 7.5 g/dL (6.4-8.2); Sodium Level 140 mmol/L (136-145)
[2022-02-12] MEDS: Cefazolin 2 GM in 0.9% Normal Saline 100 ML IV (13:33)
--- NOTE | 2022-02-12 14:05 | RAD_ITS ---
CLINICAL HISTORY: ANKLE REVISIONAL ORIF OF DISTAL FIBULA Date: 02/12/2022 2:25 PM Date of : 1945 Images assigned to this order were provided in conjunction with a surgical procedure performed in the operating room/procedural suite. Please see operative report for details. Fluoroscopic images: 22 Fluoroscopic time: 159 seconds Cumulative dose: 7.04, mGym2; NA; mGy Imaging documents plate and screw fixation/ORIF of the distal fibula with normal alignment demonstrated. Refer to procedural note for complete description. Impressions: 1. Fluoroscopic guidance for surgical planning and confirmation Electronically Signed: Lc Yancey MD at 0:43 EDT , RAD/Ankle min 3 Views IMPRESSION: undefined
[2022-02-12] MEDS: BACITRACIN/POLYMYXIN B 15 GM Tube 1 APPLIC (16:39)
--- NOTE | 2022-02-12 17:21 | OP.PCM_ITS ---
Problems Associated Problem List Diagnoses (1) Closed fracture of lateral malleolus of right ankle: (2) Fixation hardware in lower extremity: Report of Operation Date of Procedure: 02/12/22 Pre-Operative Diagnosis: 1) closed displaced distal fibular fracture right ankle 2) hardware failure with refracture right ankle Post-Operative Diagnosis: Same Surgery/Procedure Performed:: Revisional open reduction and internal fixation after hardware removal right ankle Description of Surgical Findings:: Intraoperatively there is significant loss of bone mineral density to the bone with loss of significant bone structure secondary to primary repair with multiple screw holes within the bone itself. Decision was made for operative reduction after hardware removal. An additional plate was used anteriorly to help stabilize the fracture fragment and maintain fibular length and reduction. This was performed and reduction was noted to be confirmed on AP oblique and lateral radiographs. Surgeon: Eros Agarwal natural sciences department chair: None (Roxane RevelesP.Tana, PGY 3) Type of Anesthesia: General Special Medications: Patient received preoperative popliteal block per anesthesia Specimen's removed: Bone callus right distal Estimated Blood Loss (mL): 100 cc Description of Procedure: Patient suffered a displaced distal fibular fracture on 01/22/2022. Patient was admitted that day and open reduction with internal fixation was performed the following day. Patient patient suffered a UTI which subsequently led to altered mental status. Patient at that time became confused and disoriented and attempted to leave the hospital and ambulate on her surgical site. This was on 01/23/2022. The following day the radiographs were taken and there was relative maintenance of reduction of the fracture deformity at that time. Initial plan was for the patient to discharge to a [facility] facility for prolonged nonweightbearing. At last second patient requested to go home. Granted patient permission to ambulate for transfer purposes only assisted by a walker with a Cam walking boot. Patient was seen in my office at 1 week postop rate repeat radiographs were taken and loss of fibular reduction with hardware failure was noted at that time. Decision for repeat ORIF after hardware removal was decided that the patient could return to an ambulatory status with minimal pain and dysfunction. Patient was brought back to the operating placed comfortably in supine position on the operating room table. Right lower extremity was elevated on blankets and stabilized using combination tape. Hip bump was placed under the right hip to knock out any over external rotation. Well-padded right thigh tourniquet was applied. Alexander were aseptically removed from the lateral ankle incision. Patient induced under general anesthesia per anesthesia. All osseous prominences were offloaded prevent any compression neuropraxia. Right lower extremity was elevated exsanguinated tourniquet was inflated to 300 mmHg. This same incision was used as from the previous surgery. This was made full- thickness down to the level of the plate. This was performed after approval from anesthesia and inflation of the tourniquet. The distal fibular locking plate was removed using manufactures guidelines and the lag screw was removed as well. At this time it was noted that there was an additional fracture fragment different from the initial fragment fracture. The initial fracture ran from an oblique direction on AP and lateral radiographs suggestive of a spiral fracture. Secondary fracture fragment is a new anterior butterfly fragment. Which led to additional instability of the fracture itself. Both fracture fragments were dissected out and curetted and any hematoma was flushed from the site. There is noted to be some heterotopic new Bone callus formation just anterior to the peroneal tendon sheath. This was removed and sent to pathology for further examination. After the fracture sites were flushed reduction was performed and maintained using bone reduction forceps. The lateral one third tubular plate was applied and stabilized using manufactures guidelines. Due to some difficulty with reduction the distal screws x2 were applied in a locking fashion per implementation manager's guidelines. The fracture was then reduced manually. This was confirmed intraoperatively and with fluoroscopic imaging. Then the proximal aspect of the plate was stabilized using a combination of 2 nonlocking screws to bring the plate down and 1 locking screw. Were inserted per [employer] manufactures guidelines. A second plate was placed anterior for additional stability and to help stabilize the anterior butterfly fragment. This was placed anteriorly with the fibula in a reduced position confirmed intraopera tively and fluoroscopically using combination of locking and nonlocking screws see manufactures guidelines. Initially the syndesmosis and deltoid were stressed and stability was noted. Due to concern with additional support for the lateral buttress decision was made to apply a tight rope internal brace. However, due to issues with application of the tight rope this was ultimately removed and any attempt to stabilize syndesmosis was deemed unnecessary as stability was noted on clinical stressing and fluoroscopic imaging. Final fluoroscopic images were taken. All incisions were flushed with copious amounts normal sterile saline. Should be noted there was a medial percutaneous stab incision which was used to help remove the failed internal brace. Since both these incisions were closed with deep simple interrupted buried technique 2-0 Vicryl. Subcutaneous closure performed with subcutaneous simple interrupted buried technique. Using 2-0 Vicryl. Skin closure performed with skin alexander. Tourniquet was let down prior to incisional closure. All bleeders were identified cauterized at this time. The foot was cleansed with saline soaked lap. Dressed and dried off. Incision sites dressed with bacitracin Adaptic 4 x 4's Kerlix. A well-padded cast was applied to the right lower extremity with the foot in a neutral position. There was some bleeding throughout the case approximately 100 cc of blood loss. We will hold the patient's Eliquis through the night. Likely restart in the morning. H&H ordered just to rule out any possible acute blood loss anemia. As mentioned there was significant loss of bone mineral density and significant structural integrity of the fibula is why 2 plates were used along the lateral and anterior aspect of the fibula. Pathologic specimens right distal fibular bone callus Complications none Findings reduction of the distal fibular fracture Grafts/Implants Used: Arthrex plates x2 with associated locking and nonlocking screws. Admit VTE Documentation VTE Present on Admission: Yes VTE Mechan Device Prophylaxis: SCD's VTE Pharm Prophylaxis ordered?: No Reason prophylaxis not ordered:: Medical Contraindication
[2022-02-12] MEDS: Lactated Ringers 1,000 ML 15 ML IV (18:46)
[2022-02-12 19:06] LABS: Hematocrit 36.6 % (37-47); Hemoglobin 12.4 g/dL (12.0-15.0)
--- NOTE | 2022-02-12 19:11 | PN.HOSP_ITS ---
Subjective Subjective Patient recently status post OR with block in place with no current pain as a result. She is seated comfortably in the medical surgical bed with her head elevated. She currently notes that she is yet to even try oral intake but denies having a marked appetite. She notes primarily being significantly fatigued and notes that she could easily nap at this point. Patient denies fevers, chills, nausea, emesis, abdominal pain, chest pain or dyspnea. Objective Data Objective Data Vital Signs: Vital Signs Temp Pulse Resp BP Pulse Ox O2 Del Method 97.6 F L 76 18 122/77 H 98 Room Air 02/12/22 18:27 02/12/22 18:27 02/12/22 18:27 02/12/22 18:27 02/12/22 18:27 02/12/22 18:27 Oxygen Delivery Method Room Air Weight: 200 lb Body Mass Index (BMI) 35.4 Intake & Output: Intake and Output for Last 24 Hours 02/10/22 02/11/22 02/12/22 23:59 23:59 23:59 Intake Total 725 / 725 Balance 725 / 725 Lab / Micro Data Result Diagrams: 02/12/22 18:45 02/12/22 12:15 Labs: Laboratory Results - last 24 hr 02/12/22 12:10: Urine Color Yellow, Urine Clarity Sl. Cloudy, Urine pH 6.0, Ur Specific Mulberry 1.025, Urine Protein 30 H, Urine Glucose (UA) Normal, Urine Ketones 5 H, Urine Occult Blood 10 H, Urine Nitrite Negative, Urine Bilirubin Negative, Urine Urobilinogen Normal, Ur Leukocyte Esterase 25 H, Urine RBC 0 SEEN, Urine WBC 0 SEEN, Ur Squamous Epith Cells 0-5 SEEN, Urine Bacteria RARE, Urine Mucus 0 SEEN 02/12/22 12:15: PT 15.0 H, INR 1.2 02/12/22 12:15: Sodium 140, Potassium 4.3, Chloride 107, Carbon Dioxide 26.0, Anion Gap 7, BUN 18, Creatinine 1.20 H, Estim Creat Clear Calc 34.02, Est GFR (MDRD) Af Amer 56 L, Est GFR (MDRD) Non-Af 47 L, BUN/Creatinine Ratio 15.0, Glucose 97, Calcium 9.4, Total Bilirubin 0.80, AST 17, ALT 18, Alkaline Phosphatase 109, Total Protein 7.5, Albumin 3.4, Globulin 4.1, Albumin/Globulin Ratio 0.8 L 02/12/22 18:45: Hgb 12.4, Hct 36.6 L Physical Exam Narrative Physical Examination: General: Awake, alert, oriented x 3 and cooperative, seated upright in medical surgical bed in no apparent distress, status post recent OR with legs elevated, block still in place. Skin: Normal color, normal turgor, no icterus, no cyanosis except for noted very staged ecchymoses, left lower extremity elevated, casted, recent OR, toes with ecchymotic changes as expected with mild edema associated. HEENT: AT/NC, EOMI, PERRLA, mildly dry MM, no carotid bruits or JVD noted; however, thickened neck makes evaluation difficult. Lungs: CTA bilaterally, moderate effort, mild decrease BL bases, no rales, ronchi or wheezing. Heart: Irregular, rate controlled; no gallop, rub audible. Abdomen: Soft, obese, NTTP, ND, distant mildly hyperactive BS, no HSM. Extremities: No cyanosis, no clubbing, see skin. Neurological: Patient awake, alert, oriented as noted cognitive function intact; pupils equally reactive to light and accommodation, cranial nerves II-XII grossly normal, moving extremities however expected limitation left lower extremity given recent OR block, strength accordingly moderately to severely decreased. Psychiatric: Affect appears fatigued, no acute evidence of depressive or anxiety feelings. Assessment & Plan Assessment/Plan (1) Bimalleolar fracture of right ankle: (2) Closed fracture of lateral malleolus of right ankle: PLAN: Plan The patient is a 76 y/o F w/ PMHx: Chronic AF, Rheumatoid arthritis, Anxiety and Depression, Obesity, HTN, Hx 01/22/22 admission with R ankle/knee pain s/p injury with closed fracture of lateral malleolus of right ankle s/p 01/23/22 OR ORIF, R distal fibula transitioned to SNF 01/27/22 now re-presents for planned OR 02/12/[address] Agarwal for revision open reduction and internal fixation after hardware removal right ankle secondary to significant loss of bone mineral density to the bone with loss of significant bone structure secondary to primary repair with multiple screw holes within the bone itself. #1. Closed displaced distal fibular fracture right ankle with hardware failure with refracture right ankle: Admitted to [facility] per Orthopedic surgery, OR per Dr. Agarwal 02/12/22 s/p revision open reduction and internal fixation after hardware removal right ankle secondary to significant loss of bone mineral density to the bone with loss of significant bone structure secondary to primary repair with multiple screw holes within the bone itself, post-operative pain management, bowel regimen, DVT Prophylaxis, PT/OT/CM per Orthopedic surgery discretion. #2. Hypertension: Continue home regimen including metoprolol, clonidine, PRN hydralazine. #3. Chronic atrial fibrillation: We will continue patient home metoprolol regimen, resume anticoagulants once cleared per Podiatric surgery #4. Rheumatoid arthritis: Will continue home MTX regimen, gabapentin as well as vitamin supplementation. #5 anxiety and depression: We will continue patient home BuSpar regimen #6. Obesity: Weight loss and lifestyle changes encouraged. #7. DVT prophylaxis: SCDs, resume oral NOAC once cleared per Podiatric surgery. Charges/Coding Visit Charges Inpatient E&M: 70605 Subs Hosp L3
[2022-02-12] MEDS: Morphine 4 MG/ML Syringe IV (22:32)
[2022-02-12] MEDS: cloNIDine HCl 0.1 MG Tablet PO (22:32)
[2022-02-12] MEDS: Gabapentin 100 MG Capsule 200 MG PO (22:32)
--- NOTE | 2022-02-13 | BONBX_PTH ---
PATIENT: MIHIR KULKARNI LOC: [facility]3 U#:[id number] AGE/SX: 76/F [facility]OM: [facility]12/[address]: Dr. Eros Agarwal DPM : 1945 BED: 1 DIS: 02/13/2022 SPEC #: [id number] RECD: 02/13/22 13:57 STATUS: JONI RECj #: [id number] KATELYNN: 02/13/22 00:[address]: Eros Agarwal DEPT: SURGICAL PATHOLOGY RECD BY: Tino Martin ENTERED: 02/16/22 10:05 SP TYPE: Bone OTHR DR: DO Dr. Danica Davalos MD Dr. Mark Tereletsky, Tissues: Bone of lower extremity, NOS Procedures: Decalcification bone/plaque Surgery Specimen Level IV HEADER OPERATION: Ankle revisional ORIF of distal fibula PRE-OP DIAGNOSIS: Displaced distal fibula fracture, hardware failure TISSUE SUBMITTED: Bone callus right fibula MICROSCOPIC DIAGNOSIS Bone callus right fibula: Pieces of bone with extensive reactive changes. LIV:sofi 02/18/2022 MICROSCOPIC DESCRIPTION Slides are reviewed. GROSS DESCRIPTION Received in fixative is one container labeled with the patient's name and designated bone callus right fibula. The specimen consists of two pieces of bone measuring 3.6 x 1.5 x 0.5 cm and 1 x 0.6 x 0.3 cm. Bottom Wheeler sections are submitted in one cassette after decalcification. / LIV:sofi 02/16/2022 TC:5 CPT: 17224, 73893
[2022-02-13 04:00] VITALS: BP 97/47; PULSE 92; RESP 18; TEMP 37.2; O2SAT 97
[2022-02-13 06:16] LABS: Absolute Lymphocyte Count 1.03 X10^3/uL (0.83-4.51); Absolute Neutrophil Count 8.7 X10^3/uL (2.0-7.7); Basophil# 0.02 X10^3/uL; Basophil% 0.2 % (0-1); Hemoglobin 10.9 g/dL (12.0-15.0); Lymphocyte # 1.03 X10^3/ul (0.83-4.51); Lymphocyte % 9.5 % (19-41); Mean Corpuscular Hgb 33.1 pg (27.0-32.0); Mean Corpuscular Volume 100.3 fL (81-99); Mean Platelet Vol. 9.8 fl (6.2-12.0); Monocyte% 10.1 % (0-10); NRBC Flagged by Analyzer 0 % (0-5); Neutrophil # 8.68 X10^3/uL (2.7-7.7); Neutrophil % 79.8 % (47-70); Platelet Count 260 K/mm3 (150-450); RBC Distribution Width CV 13.3 % (11.6-14.6); RBC Distribution Width SD 49.5 fl (35.1-43.9); Red Blood Count 3.29 M/mm3 (4.2-5.4); White Blood Count 10.9 K/mm3 (4.4-11.0)
[2022-02-13 07:15] LABS: ALB/GLOB Ratio 0.7 RATIO (0.9-2.4); AST(SGOT) 17 U/L (15-37); Alanine Aminotransfer ALT/SGPT 15 U/L (13-56); Albumin, Serum 2.6 g/dL (3.2-5.0); Alkaline Phosphatase 92 U/L (45-117); Anion Gap 8 (5-15); BUN 17 mg/dL (7-18); Calcium,Total 8.5 mg/dL (8.5-10.1); Chloride 105 mmol/L (98-107); Creatinine, Serum 0.95 mg/dL (0.55-1.02); EST Glomerular Filtration Rate 61 mL/min (>60); Est Glom Filt Rate - Afr Amer 74 mL/min (>60); Estimated Creatinine Clearance 42.98 ml/min; Globulin 3.6 g/dL (2.2-4.2); Glucose 98 mg/dL (74-106); Potassium 4.3 mmol/L (3.5-5.1); Protein, Total 6.2 g/dL (6.4-8.2); Sodium Level 137 mmol/L (136-145)
[2022-02-13 10:50] VITALS: BP 115/53; PULSE 95; RESP 18; TEMP 36.4; O2SAT 100
--- NOTE | 2022-02-13 10:52 | CASEMGMT ---
Addendum entered by Luis Posada 02/13/22 10:57: Call placed to Kizzy @ [facility]. She is aware of pt's admission to [facility] and anticipate discharge home today. Pt is active w/[facility] for PT only. Original Note: SHAHID HILL NOTE: SHAHID HILL to room. Introduced self and role. Pt sitting up in recliner chair. Pt denies having any discharge planning needs. She states she is active w/[facility] for therapy and wishes to resume therapy with them. Her daughter is picking up a W/C w/leg rests today and she has no other DME needs. She has a f/u appt w/surgeon next week. Her daughter has been assisting her @ home and will continue to be able to assist her as needed. SHAHID HILL instructed pt to ask for CM if any discharge planning needs/concerns/questions arise. Pt voices appreciation. Agapito JASON RN, CM
[2022-02-13] MEDS: oxyCODONE 5 MG Tablet PO (11:00)
[2022-02-13] MEDS: cloNIDine HCl 0.1 MG Tablet PO (11:00)
[2022-02-13] MEDS: Calcium Carbonate 500 MG Tablet 1000 MG PO (11:00)
[2022-02-13 11:01] VITALS: PULSE 95
[2022-02-13] MEDS: Metoprolol(XL)Succ 200 MG Tablet PO (11:01)
[2022-02-13] MEDS: Cholecalciferol (VIT D3) 25 MCG TABLET (1,000 UNITS) 50 MCG PO (11:01)
[2022-02-13] MEDS: Potassium Chloride Oral Tablet 20 MEQ PO (11:02)
[2022-02-13] MEDS: buPROPion (XL) 150 MG TABLET.XL PO (11:02)
[2022-02-13 11:44] VITALS: BP 115/53; PULSE 95; RESP 18; TEMP 36.4; O2SAT 100
--- NOTE | 2022-02-13 11:54 | PCM.PN.HOSP ---
Subjective Subjective Patient was seen and examined today, she appears to be comfortable at rest. Blood pressure appears to be controlled. Objective Data Objective Data Vital Signs: Vital Signs Temp Pulse Resp BP Pulse Ox O2 Del Method 97.6 F L 95 18 115/53 L 100 Room Air 02/13/22 11:44 02/13/22 11:44 02/13/22 11:44 02/13/22 11:44 02/13/22 11:44 02/13/22 11:44 Oxygen Delivery Method Room Air Weight: 90.718 kg Body Mass Index (BMI) 35.4 Intake & Output: Intake and Output for Last 24 Hours 02/11/22 02/12/22 02/13/22 23:59 23:59 23:59 Intake Total 725 / 725 1688.75 / 1688.75 Output Total 600 / 600 Balance 725 / 725 1088.75 / 1088.75 Lab / Micro Data Result Diagrams: 02/13/22 04:50 02/13/22 04:50 Labs: Laboratory Results - last 24 hr 02/12/22 12:10: Urine Color Yellow, Urine Clarity Sl. Cloudy, Urine pH 6.0, Ur Specific [place] 1.025, Urine Protein 30 H, Urine Glucose (UA) Normal, Urine Ketones 5 H, Urine Occult Blood 10 H, Urine Nitrite Negative, Urine Bilirubin Negative, Urine Urobilinogen Normal, Ur Leukocyte Esterase 25 H, Urine RBC 0 SEEN, Urine WBC 0 SEEN, Ur Squamous Epith Cells 0-5 SEEN, Urine Bacteria RARE, Urine Mucus 0 SEEN 02/12/22 12:15: PT 15.0 H, INR 1.2 02/12/22 12:15: Sodium 140, Potassium 4.3, Chloride 107, Carbon Dioxide 26.0, Anion Gap 7, BUN 18, Creatinine 1.20 H, Estim Creat Clear Calc 34.02, Est GFR (MDRD) Af Amer 56 L, Est GFR (MDRD) Non-Af 47 L, BUN/Creatinine Ratio 15.0, Glucose 97, Calcium 9.4, Total Bilirubin 0.80, AST 17, ALT 18, Alkaline Phosphatase 109, Total Protein 7.5, Albumin 3.4, Globulin 4.1, Albumin/Globulin Ratio 0.8 L 02/12/22 18:45: Hgb 12.4, Hct 36.6 L 02/13/22 04:50: WBC 10.9, RBC 3.29 L, Hgb 10.9 L, Hct 33.0 L, MCV 100.3 H, MCH 33.1 H, MCHC 33.0, RDW Std Deviation 49.5 H, RDW Coeff of Denise 13.3, Plt Count 260, MPV 9.8, Immature Gran % (Auto) 0.400, Neut % (Auto) 79.8 H, Lymph % (Auto) 9.5 L, [place] % (Auto) 10.1 H, Eos % (Auto) 0.0, Baso % (Auto) 0.2, Absolute Neuts (auto) 8.7 H, Absolute Lymphs (auto) 1.03, Nucleated RBC % 0 02/13/22 04:50: Sodium 137, Potassium 4.3, Chloride 105, Carbon Dioxide 24.0, Anion Gap 8, BUN 17, Creatinine 0.95, Estim Creat Clear Calc 42.98, Est GFR (MDRD) Af Amer 74, Est GFR (MDRD) Non-Af 61, BUN/Creatinine Ratio 18.0, Glucose 98, Calcium 8.5, Total Bilirubin 0.50, AST 17, ALT 15, Alkaline Phosphatase 92, Total Protein 6.2 L, Albumin 2.6 L, Globulin 3.6, Albumin/Globulin Ratio 0.7 L Radiography Diagnostic Testing: Radiology Impression Ankle X-Ray 02/12/22 14:05 IMPRESSION: undefined Physical Exam Const alert, oriented x3, no apparent distress and healthy appearing General Appearance: cooperative, well kempt and well developed Orientation / Consciousness: awake, oriented to person, oriented to place and oriented to time HEENT normocephalic and moist oral mucous membranes Eyes PERRL, EOMs intact bilaterally and conjunctivae normal Neck supple, no JVD, thyroid normal and no carotid bruits General: trachea midline Resp normal respiratory effort and clear to auscultation bilaterally Auscultation: Negative for rales, rhonchi or wheezes Cardio S1 normal heart sound, S2 normal heart sound, no murmurs, no rub and no gallops Cardio Narrative: Heart rate and rhythm is irregular GI normal to inspection, nondistended, normoactive bowel sounds, soft to palpation, non-tender and non-distended Extremity Extremity Narrative: Patient's right lower leg is enclosed with a splint and surgical dressing Skin no rashes or lesions noted Neuro oriented x3, CN's II-XII intact bilaterally, no focal motor deficits and no sensory deficits noted Sensorium / Orientation: awake, alert, oriented to person, oriented to place and oriented to time Speech: speech normal Psych affect normal Assessment & Plan Assessment/Plan (1) Bimalleolar fracture of right ankle: PLAN: Plan 1. Essential hypertension-patient will remain on her current blood pressure medications #2 chronic atrial fibrillation-patient is on rate control medications, she will likely resume her Eliquis after discharge from the hospital. 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
--- NOTE | 2022-02-13 12:34 | PCM.PROGNOTE ---
Subjective Subjective 76-year-old female seen 1 day postop revisional right ankle fracture ORIF. Patient notes pain is well controlled with oral oxycodone. Patient denies constitutional chest pain And shortness of breath. Patient has been passing gas and voiding urine. No other complaints at this time Objective Data Objective Data Vital Signs: Vital Signs Temp Pulse Resp BP Pulse Ox O2 Del Method 97.6 F L 95 18 115/53 L 100 Room Air 02/13/22 11:44 02/13/22 11:44 02/13/22 11:44 02/13/22 11:44 02/13/22 11:44 02/13/22 11:44 Oxygen Delivery Method Room Air Weight: 90.718 kg Body Mass Index (BMI) 35.4 Intake & Output: Intake and Output for Last 24 Hours 02/11/22 02/12/22 02/13/22 23:59 23:59 23:59 Intake Total 725 / 725 1688.75 / 1688.75 Output Total 600 / 600 Balance 725 / 725 1088.75 / 1088.75 Lab / Micro Data Result Diagrams: 02/13/22 04:50 02/13/22 04:50 Labs: Laboratory Results - last 24 hr 02/12/22 12:10: Urine Color Yellow, Urine Clarity Sl. Cloudy, Urine pH 6.0, Ur Specific [place] 1.025, Urine Protein 30 H, Urine Glucose (UA) Normal, Urine Ketones 5 H, Urine Occult Blood 10 H, Urine Nitrite Negative, Urine Bilirubin Negative, Urine Urobilinogen Normal, Ur Leukocyte Esterase 25 H, Urine RBC 0 SEEN, Urine WBC 0 SEEN, Ur Squamous Epith Cells 0-5 SEEN, Urine Bacteria RARE, Urine Mucus 0 SEEN 02/12/22 12:15: PT 15.0 H, INR 1.2 02/12/22 12:15: Sodium 140, Potassium 4.3, Chloride 107, Carbon Dioxide 26.0, Anion Gap 7, BUN 18, Creatinine 1.20 H, Estim Creat Clear Calc 34.02, Est GFR (MDRD) Af Amer 56 L, Est GFR (MDRD) Non-Af 47 L, BUN/Creatinine Ratio 15.0, Glucose 97, Calcium 9.4, Total Bilirubin 0.80, AST 17, ALT 18, Alkaline Phosphatase 109, Total Protein 7.5, Albumin 3.4, Globulin 4.1, Albumin/Globulin Ratio 0.8 L 02/12/22 18:45: Hgb 12.4, Hct 36.6 L 02/13/22 04:50: WBC 10.9, RBC 3.29 L, Hgb 10.9 L, Hct 33.0 L, MCV 100.3 H, MCH 33.1 H, MCHC 33.0, RDW Std Deviation 49.5 H, RDW Coeff of Denise 13.3, Plt Count 260, MPV 9.8, Immature Gran % (Auto) 0.400, Neut % (Auto) 79.8 H, Lymph % (Auto) 9.5 L, [place] % (Auto) 10.1 H, Eos % (Auto) 0.0, Baso % (Auto) 0.2, Absolute Neuts (auto) 8.7 H, Absolute Lymphs (auto) 1.03, Nucleated RBC % 0 02/13/22 04:50: Sodium 137, Potassium 4.3, Chloride 105, Carbon Dioxide 24.0, Anion Gap 8, BUN 17, Creatinine 0.95, Estim Creat Clear Calc 42.98, Est GFR (MDRD) Af Amer 74, Est GFR (MDRD) Non-Af 61, BUN/Creatinine Ratio 18.0, Glucose 98, Calcium 8.5, Total Bilirubin 0.50, AST 17, ALT 15, Alkaline Phosphatase 92, Total Protein 6.2 L, Albumin 2.6 L, Globulin 3.6, Albumin/Globulin Ratio 0.7 L Radiography Diagnostic Testing: Radiology Impression Ankle X-Ray 02/12/22 14:05 IMPRESSION: undefined Physical Exam Narrative Cast intact to right lower extremity. Patient able to wiggle digits she feels digits. Light touch protective sensation intact. No pain with calf squeeze or palpation of popliteal fossa. Assessment & Plan Assessment/Plan (1) Closed fracture of lateral malleolus of right ankle: PLAN: Patient examined evaluated. Hospitalist on board. health services information specialist on board patient will discharge home with home health care Patient will maintain nonweightbearing status assisted by wheelchair. Patient will continue Eliquis for DVT prophylaxis Neurovascular is intact to right lower extremity. No signs of DVT at this time. No signs of infection. Patient's pain is well controlled, no signs of disorientation or confusion. Patient will discharge home today.
--- NOTE | 2022-02-13 12:36 | DS.PCM_ITS ---
Providers Date of Admission: 02/12/22 Primary Care Physician: Dr. Danica Perez MD Consultations 02/12/22 17:25 Consult: Hospitalist Routine Consulting Provider: Tan Avelar Reason for Consult: medical management EMERGENT Consult: No MD Notified: Yes Date Notified: 02/12/22 Time Notified: 18:09 Method of Notification: Text Reason For Visit: RT ANKLE REVISONAL ORIF DISTAL FIBULA Diagnosis Discharge Diagnosis (1) Closed fracture of lateral malleolus of right ankle: Status: Acute Code(s): S82.61XA - Displaced fracture of lateral malleolus of right fibula, initial encounter for closed fracture Plan: Patient examined evaluated. Hospitalist on board. student services advisor on board patient will discharge home with home health care Patient will maintain nonweightbearing status assisted by wheelchair. Patient will continue Eliquis for DVT prophylaxis Neurovascular is intact to right lower extremity. No signs of DVT at this time. No signs of infection. Patient's pain is well controlled, no signs of disorientation or confusion. Patient will discharge home today. Medications at Discharge Home Medications apixaban 5 mg tablet (Eliquis) 5 mg PO BID blood thinner 01/22/22 bupropion HCl 150 mg 24 hr tablet, extended release 150 mg PO DAILY mood 01/22/22 clonidine HCl 0.1 mg tablet 0.1 mg PO BID bp 01/22/22 gabapentin 100 mg capsule 200 mg PO QHS nerve pain 01/22/22 leucovorin calcium 15 mg tablet 15 mg PO MO supplement 01/22/22 methotrexate sodium 2.5 mg tablet 12.5 mg PO QWEEK RA 01/22/22 metoprolol succinate 200 mg tablet,extended release 24 hr 200 mg PO DAILY bp 01/22/22 potassium chloride 20 mEq tablet,extended release(part/cryst) (Klor-Con M) 20 meq PO DAILY supplement 01/22/22 tramadol 50 mg tablet 50 mg PO BID PRN Pain 01/22/22 calcium 500 mg tablet 1,000 mg PO DAILY 02/11/22 cholecalciferol (vitamin D3) 50 mcg (2,000 unit) capsule (Vitamin D3) 50 mcg PO DAILY 02/11/22 oxycodone 5 mg capsule 5 mg PO Q4H PRN pain 7 days #42 caps 02/13/22 Hospital Course Summary of Care Provided Hospital Course: Patient was admitted after right ankle ORIF revisional. This was for 24-hour observation due to previous history of altered mental status and pain control. Patient's pain is well controlled today patient is alert and oriented x3. Per social service patient will discharge with home health care. She will maintain a nonweightbearing status. Due to pain being controlled patient set up to go home she will be discharged today. She will follow-up in 1 week at which time she will maintain nonweightbearing status Physical Exam Narrative Cast intact the right lower extremity. No pain with calf squeeze or palpation popliteal fossa. Patient able to actively move digits. Her pain is well controlled at this time. Neurovascular status intact to her digits with regards to capillary fill time brisk or active motor response to the digits with actively moving the digits as well as light touch and protective sensation. Const alert and oriented x3 Weight / BMI Weight Weight: 90.718 kg Body Mass Index (BMI) 35.4 ABG / Lab / Microbiology Data Result Diagrams: 02/13/22 04:50 02/13/22 04:50 Laboratory: Laboratory Results - last 24 hr 02/12/22 12:10: Urine RBC 0 SEEN, Urine WBC 0 SEEN, Ur Squamous Epith Cells 0-5 SEEN, Urine Bacteria RARE, Urine Mucus 0 SEEN 02/12/22 12:15: PT 15.0 H, INR 1.2 02/12/22 12:15: Sodium 140, Potassium 4.3, Chloride 107, Carbon Dioxide 26.0, Anion Gap 7, BUN 18, Creatinine 1.20 H, Estim Creat Clear Calc 34.02, Est GFR (MDRD) Af Amer 56 L, Est GFR (MDRD) Non-Af 47 L, BUN/Creatinine Ratio 15.0, Glucose 97, Calcium 9.4, Total Bilirubin 0.80, AST 17, ALT 18, Alkaline Phosphatase 109, Total Protein 7.5, Albumin 3.4, Globulin 4.1, Albumin/Globulin Ratio 0.8 L 02/12/22 18:45: Hgb 12.4, Hct 36.6 L 02/13/22 04:50: WBC 10.9, RBC 3.29 L, Hgb 10.9 L, Hct 33.0 L, MCV 100.3 H, MCH 33.1 H, MCHC 33.0, RDW Std Deviation 49.5 H, RDW Coeff of Denise 13.3, Plt Count 260, MPV 9.8, Immature Gran % (Auto) 0.400, Neut % (Auto) 79.8 H, Lymph % (Auto) 9.5 L, [place] % (Auto) 10.1 H, Eos % (Auto) 0.0, Baso % (Auto) 0.2, Absolute Neuts (auto) 8.7 H, Absolute Lymphs (auto) 1.03, Nucleated RBC % 0 02/13/22 04:50: Sodium 137, Potassium 4.3, Chloride 105, Carbon Dioxide 24.0, Anion Gap 8, BUN 17, Creatinine 0.95, Estim Creat Clear Calc 42.98, Est GFR (MDRD) Af Amer 74, Est GFR (MDRD) Non-Af 61, BUN/Creatinine Ratio 18.0, Glucose 98, Calcium 8.5, Total Bilirubin 0.50, AST 17, ALT 15, Alkaline Phosphatase 92, Total Protein 6.2 L, Albumin 2.6 L, Globulin 3.6, Albumin/Globulin Ratio 0.7 L Radiography Diagnostic Testing: Radiology Impression Ankle X-Ray 02/12/22 14:05 IMPRESSION: undefined Meaningful Use Info Meaningful Use Diagnoses (Choose all that apply): None applicable Discharge Plan Admission Admit Date/Time: 02/12/22 17:14 Attending Provider: Eros Agarwal Primary Care Provider: Danica Perez Consulting Providers: Tan Avelar ; Sami Chacon Instructions Additional Instructions / Restrictions: Patient remain nonweightbearing to her right lower extremity. She will do this assisted by a wheelchair. Patient is taking Eliquis we will continue this for DVT prophylaxis. Patient given prescription for oxycodone to take this up to every 4 hours as needed for pain. Patient can elevate her right lower extremity above the level of heart when at rest in the supine position. Patient can ice behind her knee 3 times a day for 15 minutes. Patient will follow up in 1 week in my office. Discharge Orders/Prescriptions Prescriptions: New oxycodone 5 mg capsule 5 mg PO Q4H PRN (Reason: pain) 7 Days Qty: 42 0RF Continued clonidine HCl 0.1 mg tablet 0.1 mg PO BID metoprolol succinate 200 mg tablet extended release 24 hr 200 mg PO DAILY tramadol 50 mg tablet 50 mg PO BID PRN (Reason: Pain) leucovorin calcium 15 mg tablet 15 mg PO MO potassium chloride [Klor-Con M20] 20 mEq tablet,ER particles/crystals 20 meq PO DAILY methotrexate sodium 2.5 mg tablet 12.5 mg PO QWEEK gabapentin 100 mg capsule 200 mg PO QHS Eliquis 5 mg tablet 5 mg PO BID bupropion HCl 150 mg tablet extended release 24 hr 150 mg PO DAILY calcium 500 mg Tablet 1,000 mg PO DAILY cholecalciferol (vitamin D3) [Vitamin D3] 50 mcg (2,000 unit) Capsule 50 mcg PO DAILY Referrals / Follow Up: Danica Perez MD [Primary Care Provider] - Disposition Disposition (needs filled in before D/C Order can be placed): Home Health Service
--- NOTE | 2022-02-13 14:12 | CASEMGMT ---
Social Work SW spoke with pt regarding advance directives. Pt confirms that she has a living will and health care POA naming her daughter Dorothy Killian. Pt is aware that documents are not on file at [facility] and SW requested documents be brought in when able to be scanned in to pt medical record. Pt understanding. POOL Mcclellan
== END 2022-02-13 15:00 | disposition home health service (06) ==
LOC: SDC 17:27 → MS3 17:27
PROVIDERS: Family Medicine; Admitting Provider Podiatrist; PCP Family Medicine Sports Medicine; Referring Provider Podiatrist; Visit Provider Podiatrist
PROC: (CPT 27792; principal; 2022-02-12 13:10)
DX: S82.841A Displaced bimalleolar fracture of right lower leg, initial encounter for closed fracture (principal); T84.9XXA Unspecified complication of internal orthopedic prosthetic device, implant and graft, initial encounter; M06.9 Rheumatoid arthritis, unspecified; I48.20 Chronic atrial fibrillation, unspecified; Z79.01 Long term (current) use of anticoagulants; Z79.899 Other long term (current) drug therapy; Y83.1 Surgical operation with implant of artificial internal device as the cause of abnormal reaction of the patient, or of later complication, without mention of misadventure at the time of the procedure; W10.1XXA Fall (on)(from) sidewalk curb, initial encounter; Y93.9 Activity, unspecified; Y92.9 Unspecified place or not applicable; I10 Essential (primary) hypertension; F41.9 Anxiety disorder, unspecified; F32.A Depression, unspecified
CPT/HCPCS: 27792; 20680; 01480; 64445; 36415; 73610; 76000; 80053; 81001; 85014; 85018; 85025; 85610; 88305; 88307; 88311; 96374; 97162; 99218; C1713; J7120; G0378; J2405

== ENCOUNTER → 2022-05-13 | Outpatient (CLI) | payer MEDICARE, SELFPAY ==
[2022-05-13 12:42] LABS: Absolute Lymphocyte Count 1.22 X10^3/uL (0.83-4.51); Absolute Neutrophil Count 4.2 X10^3/uL (2.0-7.7); Basophil# 0.05 X10^3/uL; Basophil% 0.8 % (0-1); Eosinophil# 0.01 X10^3/uL; Eosinophils% 0.2 % (0-5); Hematocrit 37.4 % (37-47); Hemoglobin 12.5 g/dL (12.0-15.0); Lymphocyte # 1.22 X10^3/ul (0.83-4.51); Lymphocyte % 20.2 % (19-41); Mean Corp Hgb Conc 33.4 g/dL (32-36); Mean Corpuscular Hgb 33.8 pg (27.0-32.0); Mean Corpuscular Volume 101.1 fL (81-99); Mean Platelet Vol. 9.5 fl (6.2-12.0); Monocyte# 0.55 X10^3/uL; Monocyte% 9.1 % (0-10); NRBC Flagged by Analyzer 0 % (0-5); Neutrophil % 69.4 % (47-70); Platelet Count 296 K/mm3 (150-450); RBC Distribution Width CV 14.2 % (11.6-14.6); RBC Distribution Width SD 53.1 fl (35.1-43.9); White Blood Count 6.1 K/mm3 (4.4-11.0)
[2022-05-13 13:10] LABS: ALB/GLOB Ratio 1.1 RATIO (0.9-2.4); AST(SGOT) 13 U/L (15-37); Alanine Aminotransfer ALT/SGPT 18 U/L (13-56); Albumin, Serum 3.5 g/dL (3.2-5.0); Alkaline Phosphatase 67 U/L (45-117); Anion Gap 5 (5-15); BUN 19 mg/dL (7-18); Calcium,Total 9.4 mg/dL (8.5-10.1); Chloride 107 mmol/L (98-107); Creatinine, Serum 1.12 mg/dL (0.55-1.02); EST Glomerular Filtration Rate 50 mL/min (>60); Est Glom Filt Rate - Afr Amer 61 mL/min (>60); Globulin 3.2 g/dL (2.2-4.2); Glucose 121 mg/dL (74-106); Potassium 4.4 mmol/L (3.5-5.1); Protein, Total 6.7 g/dL (6.4-8.2); Sodium Level 140 mmol/L (136-145)
== END | disposition home or self-care (01) ==
LOC: MTLAB 10:35
PROVIDERS: PCP Family Medicine Sports Medicine; Referring Provider Internal Medicine Rheumatology; Visit Provider Internal Medicine Rheumatology
DX: M06.4 Inflammatory polyarthropathy (principal); I48.91 Unspecified atrial fibrillation; M79.7 Fibromyalgia; M17.0 Bilateral primary osteoarthritis of knee; M25.512 Pain in left shoulder; K76.0 Fatty (change of) liver, not elsewhere classified; G47.33 Obstructive sleep apnea (adult) (pediatric); I10 Essential (primary) hypertension; M47.897 Other spondylosis, lumbosacral region; Z96.653 Presence of artificial knee joint, bilateral; Z79.899 Other long term (current) drug therapy
CPT/HCPCS: 36415; 80053; 85025

== ENCOUNTER → 2022-08-05 | Outpatient (CLI) | payer MEDICARE, SELFPAY ==
[2022-08-05 12:12] LABS: Absolute Lymphocyte Count 1.63 X10^3/uL (0.83-4.51); Absolute Neutrophil Count 4.3 X10^3/uL (2.0-7.7); Basophil# 0.05 X10^3/uL; Basophil% 0.7 % (0-1); Eosinophil# 0.18 X10^3/uL; Eosinophils% 2.6 % (0-5); Hematocrit 36.6 % (37-47); Hemoglobin 11.8 g/dL (12.0-15.0); Lymphocyte # 1.63 X10^3/ul (0.83-4.51); Lymphocyte % 23.5 % (19-41); Mean Corp Hgb Conc 32.2 g/dL (32-36); Mean Corpuscular Hgb 32.9 pg (27.0-32.0); Mean Corpuscular Volume 101.9 fL (81-99); Mean Platelet Vol. 9.9 fl (6.2-12.0); Monocyte# 0.73 X10^3/uL; Monocyte% 10.5 % (0-10); NRBC Flagged by Analyzer 0 % (0-5); Neutrophil # 4.31 X10^3/uL (2.7-7.7); Neutrophil % 62.3 % (47-70); Platelet Count 233 K/mm3 (150-450); RBC Distribution Width CV 14.9 % (11.6-14.6); RBC Distribution Width SD 55.6 fl (35.1-43.9); Red Blood Count 3.59 M/mm3 (4.2-5.4); White Blood Count 6.9 K/mm3 (4.4-11.0)
[2022-08-05 12:34] LABS: ALB/GLOB Ratio 0.9 RATIO (0.9-2.4); AST(SGOT) 16 U/L (15-37); Alanine Aminotransfer ALT/SGPT 19 U/L (13-56); Albumin, Serum 3.1 g/dL (3.2-5.0); Alkaline Phosphatase 53 U/L (45-117); Anion Gap 5 (5-15); BUN 14 mg/dL (7-18); BUN/Creat Ratio 13.1 RATIO (10-20); Calcium,Total 8.5 mg/dL (8.5-10.1); Chloride 106 mmol/L (98-107); Creatinine, Serum 1.07 mg/dL (0.55-1.02); EST Glomerular Filtration Rate 53 mL/min (>60); Est Glom Filt Rate - Afr Amer 64 mL/min (>60); Globulin 3.4 g/dL (2.2-4.2); Glucose 108 mg/dL (74-106); Potassium 3.9 mmol/L (3.5-5.1); Protein, Total 6.5 g/dL (6.4-8.2); Sodium Level 141 mmol/L (136-145)
== END | disposition home or self-care (01) ==
PROVIDERS: PCP Family Medicine Sports Medicine; Referring Provider Internal Medicine Rheumatology; Visit Provider Internal Medicine Rheumatology
DX: M06.4 Inflammatory polyarthropathy (principal); I48.91 Unspecified atrial fibrillation; M79.7 Fibromyalgia; M17.0 Bilateral primary osteoarthritis of knee; M25.512 Pain in left shoulder; K76.0 Fatty (change of) liver, not elsewhere classified; G47.33 Obstructive sleep apnea (adult) (pediatric); I10 Essential (primary) hypertension; M47.897 Other spondylosis, lumbosacral region; Z96.653 Presence of artificial knee joint, bilateral; Z79.899 Other long term (current) drug therapy
CPT/HCPCS: 36415; 80053; 85025

== ENCOUNTER → 2022-11-06 | Outpatient (CLI) | payer MEDICARE, SELFPAY ==
[2022-11-06 10:23] LABS: Absolute Lymphocyte Count 1.63 X10^3/uL (0.83-4.51); Absolute Neutrophil Count 4.5 X10^3/uL (2.0-7.7); Basophil# 0.06 X10^3/uL; Basophil% 0.9 % (0-1); Eosinophil# 0.19 X10^3/uL; Eosinophils% 2.7 % (0-5); Hematocrit 38.6 % (37-47); Hemoglobin 12.7 g/dL (12.0-15.0); Lymphocyte # 1.63 X10^3/ul (0.83-4.51); Lymphocyte % 23.3 % (19-41); Mean Corp Hgb Conc 32.9 g/dL (32-36); Mean Corpuscular Hgb 33.9 pg (27.0-32.0); Mean Corpuscular Volume 102.9 fL (81-99); Mean Platelet Vol. 9.6 fl (6.2-12.0); Monocyte# 0.64 X10^3/uL; Monocyte% 9.1 % (0-10); NRBC Flagged by Analyzer 0 % (0-5); Neutrophil # 4.46 X10^3/uL (2.7-7.7); Neutrophil % 63.6 % (47-70); Platelet Count 241 K/mm3 (150-450); RBC Distribution Width CV 13.6 % (11.6-14.6); RBC Distribution Width SD 51.2 fl (35.1-43.9); Red Blood Count 3.75 M/mm3 (4.2-5.4)
[2022-11-06 10:51] LABS: ALB/GLOB Ratio 0.9 RATIO (0.9-2.4); AST(SGOT) 16 U/L (15-37); Alanine Aminotransfer ALT/SGPT 16 U/L (13-56); Albumin, Serum 3.2 g/dL (3.2-5.0); Alkaline Phosphatase 50 U/L (45-117); Anion Gap 6 (5-15); BUN 19 mg/dL (7-18); BUN/Creat Ratio 15.7 RATIO (10-20); Calcium,Total 9.1 mg/dL (8.5-10.1); Chloride 106 mmol/L (98-107); Creatinine, Serum 1.21 mg/dL (0.55-1.02); EST Glomerular Filtration Rate 46 mL/min (>60); Est Glom Filt Rate - Afr Amer 56 mL/min (>60); Globulin 3.7 g/dL (2.2-4.2); Glucose 90 mg/dL (74-106); Potassium 3.3 mmol/L (3.5-5.1); Protein, Total 6.9 g/dL (6.4-8.2); Sodium Level 141 mmol/L (136-145)
== END | disposition home or self-care (01) ==
PROVIDERS: PCP Family Medicine Sports Medicine; Referring Provider Internal Medicine Rheumatology; Visit Provider Internal Medicine Rheumatology
DX: M06.4 Inflammatory polyarthropathy (principal); Z79.899 Other long term (current) drug therapy
CPT/HCPCS: 36415; 80053; 85025

== ENCOUNTER → 2023-01-08 | Outpatient (CLI) | payer MEDICARE, SELFPAY ==
[2023-01-08 14:56] LABS: Absolute Lymphocyte Count 1.45 X10^3/uL (0.83-4.51); Absolute Neutrophil Count 4.2 X10^3/uL (2.0-7.7); Basophil# 0.05 X10^3/uL; Basophil% 0.8 % (0-1); Eosinophil# 0.15 X10^3/uL; Eosinophils% 2.3 % (0-5); Hematocrit 39.8 % (37-47); Hemoglobin 13.3 g/dL (12.0-15.0); Lymphocyte # 1.45 X10^3/ul (0.83-4.51); Lymphocyte % 22.3 % (19-41); Mean Corp Hgb Conc 33.4 g/dL (32-36); Mean Corpuscular Hgb 33.6 pg (27.0-32.0); Mean Corpuscular Volume 100.5 fL (81-99); Mean Platelet Vol. 10.1 fl (6.2-12.0); Monocyte# 0.59 X10^3/uL; Monocyte% 9.1 % (0-10); NRBC Flagged by Analyzer 0 % (0-5); Neutrophil # 4.24 X10^3/uL (2.7-7.7); Platelet Count 238 K/mm3 (150-450); RBC Distribution Width CV 12.4 % (11.6-14.6); RBC Distribution Width SD 46.5 fl (35.1-43.9); Red Blood Count 3.96 M/mm3 (4.2-5.4); White Blood Count 6.5 K/mm3 (4.4-11.0)
[2023-01-08 15:41] LABS: ALB/GLOB Ratio 0.9 RATIO (0.9-2.4); AST(SGOT) 20 U/L (15-37); Alanine Aminotransfer ALT/SGPT 27 U/L (13-56); Albumin, Serum 3.4 g/dL (3.2-5.0); Alkaline Phosphatase 58 U/L (45-117); Anion Gap 6 (5-15); BUN 18 mg/dL (7-18); BUN/Creat Ratio 14.4 RATIO (10-20); Calcium,Total 9.3 mg/dL (8.5-10.1); Chloride 104 mmol/L (98-107); Creatinine, Serum 1.25 mg/dL (0.55-1.02); EST Glomerular Filtration Rate 44 mL/min (>60); Est Glom Filt Rate - Afr Amer 54 mL/min (>60); Globulin 3.9 g/dL (2.2-4.2); Glucose 93 mg/dL (74-106); Potassium 4.1 mmol/L (3.5-5.1); Protein, Total 7.3 g/dL (6.4-8.2); Sodium Level 138 mmol/L (136-145)
== END | disposition home or self-care (01) ==
LOC: MTLAB 13:19
PROVIDERS: PCP Family Medicine Sports Medicine; Referring Provider Internal Medicine Rheumatology; Visit Provider Internal Medicine Rheumatology
DX: M06.4 Inflammatory polyarthropathy (principal); M79.7 Fibromyalgia; Z79.899 Other long term (current) drug therapy
CPT/HCPCS: 36415; 80053; 85025

== ENCOUNTER → 2023-07-02 | Outpatient (CLI) | payer MEDICARE, SELFPAY ==
--- OUTSIDE RECORDS SUMMARY | 2023-07-02 09:54 | XMS RPT_ITS | CCD ---
Author Name Unknown Address [address] [place] [address] Organization [facility] Care Team Providers Care General Repairer Name Role Phone Harriet Perez MD Primary Care Provider [phone] HARRIET PEREZ Primary Care Unavailable PROVIDER, UNKNOWN Attending Unavailable Harriet Perez MD Primary Care Provider HARRIET PEREZ Attending Unavailable DISTHARRISON, HARRIET Primary Care Unavailable STEPAN GALVAN Referring Unavailab le DISTEL, HARRIET Primary Care Unavailable ALESSIO, HARRIET Referring Unavailable DISTHARRISON, HARRIET Primary Care Unavailable ALESSIO, HARRIET Primary Care Unavailable HARRIET PEREZ Attending Unavailable DISTEL, HARRIET Primary Care Unavailable MADHURI SALDIVAR Referring Unavailable DISTEL, HARRIET Referring Unavailable DISTEL, HARRIET Primary Care Unavailable Medications Current Medications Medication Drug Class(es) Dates Sig (Normalized) Sig (Original) allopurinol 300 mg oral tablet (15 sources) Xanthine Oxidase Inhibitor End: 12-25-2021 take 1 tablet by mouth once daily allopurinol (ZYLOPRIM) 300 mg tablet Take 300 mg by mouth once daily. 0 12/25/2021 Discontinued Completed/Discontinued Medications Medication Drug Class(es) Dates Sig (Normalized) Sig (Original) bisacodyl 5 mg delayed release oral tablet (14 sources) Stimulant Laxative Start: 06-05-2021 End: 12-02-2021 Bisacodyl (DULCOLAX) 5 mg tab Use as directed for Miralax / Gatorade Bowel Prep Kit 4 tablet 0 06/05/2021 12/02/2021 Discontinued Problems Active Problems Problem Classification Problem Date Documented Da te Episodic/Chronic Adjustment disorders (1 source) Grief finding; Translations: [Adjustment disorder with depressed mood] Chronic Anxiety disorders (1 source) Mixed anxiety and depressive disorder; Translations: [Other specified anxiety disorders] 02-27-2023 Chronic Cardiac dysrhythmias (20 sources) Chronic atrial fibrillation; Translations: [Chronic atrial fibrillation, unspecified] Onset: 08-10-2019 08-10-2019 Chronic Chronic kidney disease (20 sources) Chronic kidney disease stage 3; Translations: [Chronic kidney disease (CKD), stage III (moderate)] Onset: 06-02-2021 06-02-2021 Chronic Chronic kidney disease (1 source) Chronic kidney disease; Translations: [Stage 3a chronic kidney disease (HCC)] Onset: 06-02-2021 Diabetes mellitus without complication (1 source) Hyperglycemia; Translations: [Hyperglycemia, unspecified] 06-29-2023 Episodic Essential hypertension (20 sources) Essential hypertension; Translations: [Essential (primary) hypertension] Onset: 08-10-2019 08-10-2019 Chronic Fluid and electrolyte disorders (1 source) Hypokalemia; Translations: [Hypokalemia] 12-22-2022 Episodic Heart valve disorders (20 sources) Non-rheumatic mitral regurgitation ; Translations: [Nonrheumatic mitral (valve) insufficiency] Onset: 08-10-2019 12-13-2019 Chronic Mood disorders (20 sources) Recurrent major depressive episodes, moderate ; Translations: [Major depressive disorder, recurrent, moderate] Onset: 08-26-2020 11-22-2020 Chronic Nutritional deficiencies (1 source) Vitamin D deficiency; Translations: [Vitamin D deficiency, unspecified] 06-29-2023 Chronic Other bone disease and musculoskeletal deformities (1 source) Disorder of skeletal system; Translations: [Disorder of bone, unspecified] 06-29-2023 Episodic Other bone disease and musculoskeletal deformities (1 source) Senile osteopenia; Translations: [Other specified disorders of bone density and structure, unspecified site] 06-29-2023 Episodic Other diseases of kidney and ureters (1 source) Disorder of kidney and ureter, unspecified; Translations: [Kidney function abnormal] Onset: 06-23-2023 Episodic Other nutritional; endocrine; and metabolic disorders (20 sources) Obese class II; Translations: [Obesity, unspecified] Onset: 08-26-2020 08-26-2020 Chronic Other nutritional; endocrine; and metabolic disorders (13 sources) Obese class I; Translations: [Obesity, unspecified] Onset: 06-26-2022 Chronic Other screening for suspected conditions (not mental disorders or infectious disease) (6 sources) Patient encounter status; Translations: [Encounter for screening mammogram for malignant neoplasm of breast] Episodic Residual codes; unclassified (1 source) Postmenopausal state; Translations: [Asymptomatic menopausal state] 06-29-2023 Episodic Rheumatoid arthritis and related disease (20 sources) Rheumatoid arthritis; Translations: [Rheumatoid arthritis, unspecified] Onset: 08-26-2020 08-26-2020 Chronic Unclassified (2 sources) Permanent atrial fibrillation; Translations: [Permanent atrial fibrillation (HCC)] Onset: 02-15-2023 Past or Other Problems Problem Classification Problem Date Documented Da te Episodic/Chronic Other aftercare (20 sources) Long-term current use of anticoagulant; Translations: [ad terminal makeup operator (current) use of anticoagulants] Onset: 05-19-2021 05-19-2021 Episodic Other aftercare (2 sources) ad terminal makeup operator (current) use of anticoagulants; Translations: [Chronic anticoagulation] Onset: 05-19-2021 Episodic Results Test Name Value Interpretation Reference Range Facil ity Vital Signs Date Time Vital Sign Value Performing Clinician Faci lity 06-29-2023 13:22-0500 Body height 160 cm Harriet Perez MD Work Phone: [facility] 06-29-2023 13:22-0500 Body temperature 97.39 [degF] Harriet Perez MD Work Phone: [facility] 06-29-2023 13:22-0500 Body weight 94.1 kg Harriet Perez MD Work Phone: [facility] 06-29-2023 13:22-0500 Diastolic blood pressure 80 mm[Hg] Harriet Perez MD Work Phone: [facility] 06-29-2023 13:22-0500 Heart rate 100 /min Harriet Perez MD Work Phone: [facility] 06-29-2023 13:22-0500 SaO2% (BldA) [Mass fraction] 98 % Harriet Perez MD Work Phone: [facility] 06-29-2023 13:22-0500 Systolic blood pressure 132 mm[Hg] Harriet Perez MD Work Phone: [facility] 02-27-2023 09:32-0400 Body height 160 cm Harriet Perez MD Work Phone: [facility] 02-27-2023 09:32-0400 Body temperature 97.7 [degF] Harriet Perez MD Work Phone: [facility] 02-27-2023 09:32-0400 Body weight 88.45 kg Harriet Perez MD Work Phone: [facility] 02-27-2023 09:32-0400 Diastolic blood pressure 76 mm[Hg] Harriet Perez MD Work Phone: [facility] 02-27-2023 09:32-0400 Heart rate 90 /min Harriet Perez MD Work Phone: [facility] 02-27-2023 09:32-0400 SaO2% (BldA) [Mass fraction] 99 % Harriet Perez MD Work Phone: [facility] 02-27-2023 09:32-0400 Systolic blood pressure 130 mm[Hg] Harriet Perez MD Work Phone: [facility] 06-26-2022 14:49-0500 Body height 160 cm Harriet Perez MD Work Phone: [facility] 06-26-2022 14:49-0500 Body temperature 97.59 [degF] Harriet Perez MD Work Phone: [facility] 06-26-2022 14:49-0500 Body weight 85.28 kg Harriet Perez MD Work Phone: [facility] 06-26-2022 14:49-0500 Diastolic blood pressure 78 mm[Hg] Harriet Perez MD Work Phone: [facility] 06-26-2022 14:49-0500 Heart rate 96 /min Harriet Perez MD Work Phone: [facility] 06-26-2022 14:49-0500 SaO2% (BldA) [Mass fraction] 96 % Harriet Perez MD Work Phone: [facility] 06-26-2022 14:49-0500 Systolic blood pressure 122 mm[Hg] Harriet Perez MD Work Phone: [facility] 12-25-2021 08:53-0400 Body height 160 cm Stepan Galvan DO Work Phone: [facility] 12-25-2021 08:53-0400 Body weight 94.03 kg Stepan Galvan DO Work Phone: [facility] 12-25-2021 08:53-0400 Diastolic blood pressure 80 mm[Hg] Stepan Galvan DO Work Phone: [facility] 12-25-2021 08:53-0400 Heart rate 75 /min Stepan Galvan DO Work Phone: [facility] 12-25-2021 08:53-0400 SaO2% (BldA) [Mass fraction] 97 % Stepan Glavan DO Work Phone: [facility] 12-25-2021 08:53-0400 Systolic blood pressure 130 mm[Hg] Stepan Galvan DO Work Phone: [facility] 12-02-2021 09:52-0400 Body height 160 cm Harriet Perez MD Work Phone: [facility] 12-02-2021 09:52-0400 Body temperature 96.4 [degF] Harriet Perez MD Work Phone: [facility] 12-02-2021 09:52-0400 Body weight 94.48 kg Harriet Perez MD Work Phone: [facility] 12-02-2021 09:52-0400 Diastolic blood pressure 63 mm[Hg] Harriet Perez MD Work Phone: [facility] 12-02-2021 09:52-0400 Heart rate 72 /min Harriet Perez MD Work Phone: [facility] 12-02-2021 09:52-0400 Respiratory rate 16 /min Harriet Perez MD Work Phone: [facility] 12-02-2021 09:52-0400 SaO2% (BldA) [Mass fraction] 98 % Harriet Perez MD Work Phone: [facility] 12-02-2021 09:52-0400 Systolic blood pressure 122 mm[Hg] Harriet Perez MD Work Phone: [facility] Encounters Encounter Date Encounter Type Care Provider Facility Start: 06-29-2023 End: 06-29-2023 ambulatory HARRIET PEREZ Facility:[facility] Start: 06-29-2023 End: 06-29-2023 Patient encounter procedure Harriet Perez MD Work Phone: [facility] Procedures Date Procedure Procedure Detail Performing Clinician Start: 02-27-2023 INFLUENZA VACCINE, P RSV FREE, AGE 65+ YR, HIGH DOSE, QUADRIVALENT (FLUZONE HIGH-DOSE) Harriet Perez MD Work Phone: Start: 02-27-2023 Mo-DV COVI D-19 VACCINE ( SEASON) AGE 12+ YR Harriet Perez MD Work Phone: Start: 11-06-2022 CBCDIF (EXTERNAL) [facility] P rovider Start: 11-14-2021 End: 11-14-2021 Screening mammography bi 2-view breast inc cad Bulk Order Provider Start: 09-03-2021 Colonoscopy Harriet renee MD Work Phone: Start: 09-10-2020 Mammography Stepan Robles ins DO Work Phone: Start: 09-07-2020 Lipid 1996 panel - S naveed or Plasma Harriet Perez MD Work Phone: Plan of Treatment Date Care Activity Detail Author Start: 12-30-2032 Urine microalbumin profile DTaP,Tdap,Td Vaccine (2 - Td or Tdap) [facility] Start: 09-03-2026 Colonoscopy COLONOSCOPY [facility] Start: 09-03-2026 COLORECTAL CANCER SCREENING COLORECTAL CANCER SCREENING [facility] Start: 06-23-2026 Diabetes Screening Diabetes Screening [facility] Start: 09-07-2025 Lipid 1996 panel - Serum or Plasma Lipid Screening [facility] Start: 09-07-2025 LIPID SCREEN LIPID SCREEN [facility] Start: 09-03-2024 Colonoscopy COLONOSCOPY [facility] Start: 09-03-2024 COLORECTAL CANCER SCREENING COLORECTAL CANCER SCREENING [facility] Start: 06-29-2024 Annual PCP Team Chronic Disease Visit Annual PCP Team Chronic Disease Visit [facility] Start: 06-23-2024 Creatinine measurement Serum Creatinine [facility] Start: 06-02-2024 Complete blood count Hemoglobin/Hematocrit [facility] Start: 06-02-2024 Creatinine measurement Serum Creatinine [facility] Start: 05-27-2024 DIABETES SCREEN DIABETES SCREEN [facility] Start: 05-27-2024 Diabetes Screening Diabetes Screening [facility] Start: 02-28-2024 Annual PCP Team Chronic Disease Visit Annual PCP Team Chronic Disease Visit [facility] Start: 12-28-2023 End: 03-28-2024 25-hydroxyvitamin D3 [Mass/volume] in Serum or Plasma VITAMIN D 25 HYDROXY Lab Routine Vitamin D deficiency Expected: 12/28/2023 (Approximate), Expires: 03/28/2024 [facility] Work Phone: Immunizations Immunization Date Immunization Notes Care Provider Magdiel salmeron 02-27-2023 COVID-19 vaccine, ag e 12+ yr, 2022- season (Mo-DV) Harriet Perez MD Work Phone: [facility] 02-27-2023 influenza (HD-IIV4) vaccine, age 65+ yr, high dose, quadrivalent, PF (FLUZONE HIGH-DOSE) Harriet Perez MD Work Phone: [facility] 12-30-2022 tetanus toxoid, redu jabari diphtheria toxoid, and acellular pertussis vaccine, adsorbed Harriet Perez MD Work Phone: [facility] 12-02-2021 pneumococcal (PCV20) vaccine, 20 valent (PREVNAR 20) Harriet Perez MD Work Phone: [facility] 12-02-2021 pneumococcal Conjuga te, unspecified formulation Harriet Perez MD Work Phone: [facility] Work Phone: 08-12-2021 zoster vaccine recombinant Harriet Perez MD Work Phone: [facility] Work Phone: 05-27-2021 zoster vaccine recombinant Harriet Perez MD Work Phone: [facility] Work Phone: 05-23-2021 zoster vaccine recombinant Stepan Jacky DO Work Phone: [facility] Work Phone: 08-26-2020 pneumococcal polysaccharide vaccine, 23 valent Stepan Galvan DO Work Phone: [facility] 07-06-2020 COVID-19 vaccine, ag e 12+ yr (PFIZER-BIONTECH - PURPLE TOP) Stepan Galvan DO Work Phone: [facility] 06-15-2020 COVID-19 vaccine, ag e 12+ yr (PFIZER-BIONTECH - PURPLE TOP) Stepan Galvan DO Work Phone: [facility] 02-14-2020 influenza (aIIV4) vaccine, age 65+ yr, quadrivalent, PF (FLUAD QUADRIVALENT) Stepan Galvan DO Work Phone: [facility] 03-11-2017 influenza, seasonal, injectable Stepan Galvan DO Work Phone: [facility] 04-06-2016 influenza, seasonal, injectable Stepan Galvan DO Work Phone: [facility] 03-12-2015 influenza, seasonal, injectable Stepan Galvan DO Work Phone: [facility] 02-09-2014 influenza, seasonal, injectable Stepannoman Galvan DO Work Phone: [facility] 01-10-2013 influenza, seasonal, injectable Stepannoman Galvan DO Work Phone: [facility] 02-10-2011 influenza, seasonal, injectable Stepan Galvan DO Work Phone: [facility] 02-20-2010 influenza, seasonal, injectable Stepan Galvan DO Work Phone: [facility] Work Phone: Payers Date Payer Category Payer Unknown ANTHEM BLUE CROS S AND BLUE SHIELD ANTHEM MEDIBLUE ACCESS [id number] 2015-Present [phone] [address] [place] [address] PPO [id number] 2015 Unknown [id number] 2015 Unknown [id number] Social History Date Type Detail Facility Start: 01-28-2019 End: 12-25-2021 Tobacco smoking status LAIS Never smoked tobacco [facility] Start: 01-28-2019 End: 12-25-2021 Tobacco use and exposure Smokeless tobacco non-user [facility] Start: 04-03-2021 End: 02-15-2023 Alcohol intake Lifetime non-drinker (finding) [facility] Start: 08-24-2020 End: 06-26-2022 History SDOH Alcohol Frequency 2 [facility] Start: 08-24-2020 End: 06-26-2022 History SDOH Alcohol Std Drinks 1 [facility] Start: 08-24-2020 End: 06-26-2022 History SDOH Social Connections Phone 5 [facility] Start: 08-24-2020 End: 06-26-2022 History SDOH Social Connections Get Together 4 [facility] Start: 08-24-2020 End: 06-26-2022 History SDOH Social Connections Sabianist 3 [facility] Start: 08-24-2020 End: 06-26-2022 History SDOH Physical Activity DPW 0 [facility] Start: 08-24-2020 Education 17 [facility] Start: 1945 Sex Assigned At Female [facility] Start: 11-04-2021 End: 12-02-2021 Exposure to SARS-CoV-2 (event) Not sure [facility] Start: 06-26-2022 End: 12-30-2022 History of Social function [facility] Start: 06-26-2022 End: 12-30-2022 Social connection and isolation panel [facility] Active Member of u bs or Organizations Not on file [facility] Are you now , , , , never or living with a partner? [facility] How often to you hav e a drink containing alcohol? Never [facility] Do you feel stress - tense, restless, nervous, or anxious, or unable to sleep at night because your mind is troubled all the time - these days [OSQ] Very much [facility] (I/We) worried wheth er (my/our) food would run out before (I/we) got money to buy more. Never true [facility] In the past 12 month s, was there a time when you were not able to pay the mortgage or rent on time? No [facility] Start: 09-07-2020 Gender identity Identifies as female gender (finding) [facility] Start: 12-11-2019 Sexual orientation Heterosexual (fin adelina) [facility] Do you belong to any clubs or organizations such as denominational groups, unions, fraternal or athletic groups, or school groups? Yes [facility] Do you feel stress - tense, restless, nervous, or anxious, or unable to sleep at night because your mind is troubled all the time - these days [OSQ] To some extent [facility] Medical Equipment Procedure Code Equipment Code Equipment Origin al Text Equipment Identifier Dates Keo Bn Smpx P To bra Fd - [id number] Start: 11-05-2011 Clinical Notes 01-28-2019 to 06-29-2023 Harriet Perez MD - 06/29/2023 1:39 PM Lin Shaffer LPN - 06/29/2023 1:18 PM ESTPatient InstructionsTelephone Encounter - Mirna Aponte APRN.PLEAT TAPER - 06/18/2023 9:57 AM EST Note Date & Type Note Facility 06-29-2023 Note HNO ID: [id number] Author: HARRIET PEREZ MD Service: ? Author Type: Physician Type: Progress Notes Filed: 06/29/2023 17:00 Note Text: Patient presents with: Follow Up HPI: Nicole Kulkarni is a 78 year old female who presents to the office today for follow up. Had a fall 2 weeks ago, just tripped while walking, hit her face, bruised on the right around her eye. Had eye exam which was ok and following up next week, planning for cataract surgery next month. Had a headache, constant initially but now resolved x 1 week. Bone density 2020 - osteopenia Had skin cancer on her face, trillium nui[place] took off 2 spots, thinks it was melanoma. Depression Increased wellbutrin, prolonged grief from 's sudden passing - thinks its helping Still getting used to living alone, dealing with things he used to take care of Seeing a counselor, bereavement counselor with hospice, individual counseling first then did a group therapy, now back to individual. Planning to get a dog, has never lived alone. Still can't fall asleep at night, can't turn her thoughts off at night - fall as asleep 9-10 pm and then wakes up, feels like deep sleep but then can't get back to sleep until 3 AM Afib - sees dr. galvan On eliquis, metoprolol Feels well, bp runs 120s/60s No palpitations RA - on methotrexate, sees rheum dr. del cid in [place] Also takes gabapentin 200 mg qhs CKD GFR 53 recently REVIEW OF SYSTEMS: CONSTITUTIONAL: No fevers, chills, nightsweats, unintended weight loss HEENT: Denies frequent or severe heaches, nasal congestion/sinus symptoms, problematic allergy problems. EYES: No diplopia or blurry vision. CARDIOVASCULAR: No chest pain, dyspnea, palpitations, orthopnea, PND, ankle edema. PULM: No dyspnea, unexplained cough. GI: No dysphagia/odynophagia, problematic reflux, constipation, diarrhea, changes in stool habits, hematochezia, melena. : No new urinary complaints, including dysuria, gross hematuria or pyuria. NEURO: No new balance problems, peripheral weakness/paresthesias or numbness of concern. MUSC-SKEL: No new joint pain, swelling, or erythema. PSY: No concerns regarding depression, anxiety or panic. INTEGUMENTARY: No new skin changes (rash, new or changing mole, new growth) PAST MEDICAL HISTORY Diagnosis Date Arthritis Atrial fibrillation (HCC) Gallstones 2020 incidental finding on us, no symptoms Hypertension Mitral valve disorder PAST SURGICAL HISTORY Procedure Laterality Date JOINT REPLACEMENT HX Bilateral 2012 TKA PAST SURGICAL HISTORY OF 03/18/2021 Laparoscopic cholecystectomy with intraoperative cholangiograms. Dr. Lockett FAMILY HISTORY Problem Relation Age of Onset No Known Problems Mother of old age other (ruptured aortic aneurysm) Father 72 No Known Problems Sister other (pulmonary embolism) Son 45 Social History Tobacco Use Smoking status: Never Smokeless tobacco: Never Vaping Use Vaping Use: Never used Substance Use Topics Alcohol use: Never Drug use: Never ACTIVE PROBLEM LIST Atrial Fibrillation, Chronic (Hcc) Non-Rheumatic Mitral Regurgitation Essential Hypertension Rheumatoid Arthritis (Hcc) Obesity, Class II, Bmi 35-39.9 Moderate Episode of Recurrent Major Depressive Disorder (Hcc) Nonrheumatic Aortic Valve Insufficiency Chronic Anticoagulation CKD (chronic kidney disease) Stage 3, GFR 30-59 ml/min Obesity, Class I, Bmi 30-34.9 ALLERGIES No Known Allergies MEDICATIONS: cloNIDine HCl (CATAPRES) 0.1 mg tablet Take 1 tablet by mouth two times a day. hydroCHLOROthiazide 25 mg tablet Take 1 tablet by mouth once daily. potassium chloride ER (KLOR-CON) 20 mEq tablet Take 1 tablet by mouth three times a day. apixaban (ELIQUIS) 5 mg tab(s) Take 1 tablet by mouth two times a day. buPROPion XL (WELLBUTRIN XL) 300 mg 24 hr tablet Take 1 tablet by mouth once daily. metoprolol succinate ER (TOPROL XL) 200 mg 24 hr tablet Take 1 tablet by mouth once daily. calcium carbonate (CALCIUM 500 ORAL) Take 500 mg by mouth twice daily. Cholecalciferol, Vitamin D3, 50 mcg (2,000 unit) cap Take by mouth once daily. gabapentin (NEURONTIN) 100 mg capsule Take 200 mg by mouth daily at bedtime. hydroxychloroquine 200 mg tablet Take by mouth twice daily. sertraline (ZOLOFT) 50 mg tablet Take 1 tablet by mouth once daily. EXAM:BP 132/80 Pulse 100 Temp 36.3 ?C (97.4 ?F) (Temporal) Ht 160 cm (5' 2.99 ) Wt 94.1 kg (207 lb 7.3 oz) SpO2 98% BMI 36.76 kg/m? Last Wt 06/29/23 : 94.1 kg (207 lb 7.3 oz) 02/27/23 : 88.5 kg (195 lb) 06/26/22 : 85.3 kg (188 lb) 12/25/21 : 94 kg (207 lb 4.8 oz) PHYSICAL EXAM: General Appearance: Well appearing, alert, in no acute distress, well-hydrated, well nourished.. Skin: Skin color, texture, turgor normal, no suspicious rashes or lesions. Lymph Nodes: No cervical lymphadenopathy, No supraclavicular lymphadenopathy Head: Normocephalic, no masses, le (more content not included)... [facility] 06-29-2023 Note HNO ID: [id number] Author: LIN MENSAH LPN Service: ? Author Type: LICENSED NURSE Type: Progress Notes Filed: 06/29/2023 17:00 Note Text: BP Controlled (<130/80) Never done RSV Vaccine(1 - 1-dose 60+ series) Never done Advance Directive Discussion due on 05/03/2023 [facility] 06-29-2023 History of Present illness Narrative Patient presents with: Follow Up HPI: Nicole Kulkarni is a 78 year old female who presents to the office today for follow up. Had a fall 2 weeks ago, just tripped while walking, hit her face, bruised on the right around her eye. Had eye exam which was ok and following up next week, planning for cataract surgery next month. Had a headache, constant initially but now resolved x 1 week. Bone density 2020 - osteopenia Had skin cancer on her face, trillium nuiqsut took off 2 spots, thinks it was melanoma. Depression Increased wellbutrin, prolonged grief from 's sudden passing - thinks its helping Still getting used to living alone, dealing with things he used to take care of Seeing a counselor, bereavement counselor with hospice, individual counseling first then did a group therapy, now back to individual. Planning to get a dog, has never lived alone. Still can't fall asleep at night, can't turn her thoughts off at night - fall as asleep 9-10 pm and then wakes up, feels like deep sleep but then can't get back to sleep until 3 AM Afib - sees dr. galvan On eliquis, metoprolol Feels well, bp runs 120s/60s No palpitations RA - on methotrexate, sees rheum dr. del cid in [place] Also takes gabapentin 200 mg qhs CKD GFR 53 recently REVIEW OF SYSTEMS: CONSTITUTIONAL: No fevers, chills, nightsweats, unintended weight loss HEENT: Denies frequent or severe heaches, nasal congestion/sinus symptoms, problematic allergy problems. EYES: No diplopia or blurry vision. CARDIOVASCULAR: No chest pain, dyspnea, palpitations, orthopnea, PND, ankle edema. PULM: No dyspnea, unexplained cough. GI: No dysphagia/odynophagia, problematic reflux, constipation, diarrhea, changes in stool habits, hematochezia, melena. : No new urinary complaints, including dysuria, gross hematuria or pyuria. NEURO: No new balance problems, peripheral weakness/paresthesias or numbness of concern. MUSC-SKEL: No new joint pain, swelling, or erythema. PSY: No concerns regarding depression, anxiety or panic. INTEGUMENTARY: No new skin changes (rash, new or changing mole, new growth) PAST MEDICAL HISTORY Diagnosis Date Arthritis Atrial fibrillation (HCC) Gallstones 2020 incidental finding on us, no symptoms Hypertension Mitral valve disorder PAST SURGICAL HISTORY Procedure Laterality Date JOINT REPLACEMENT HX Bilateral 2012 TKA PAST SURGICAL HISTORY OF 03/18/2021 Laparoscopic cholecystectomy with intraoperative cholangiograms. Dr. Lockett FAMILY HISTORY Problem Relation Age of Onset No Known Problems Mother of old age other (ruptured aortic aneurysm) Father 72 No Known Problems Sister other (pulmonary embolism) Son 45 Social History Tobacco Use Smoking status: Never Smokeless tobacco: Never Vaping Use Vaping Use: Never used Substance Use Topics Alcohol use: Never Drug use: Never ACTIVE PROBLEM LIST Atrial Fibrillation, Chronic (Hcc) Non-Rheumatic Mitral Regurgitation Essential Hypertension Rheumatoid Arthritis (Hcc) Obesity, Class II, Bmi 35-39.9 Moderate Episode of Recurrent Major Depressive Disorder (Hcc) Nonrheumatic Aortic Valve Insufficiency Chronic Anticoagulation CKD (chronic kidney disease) Stage 3, GFR 30-59 ml/min Obesity, Class I, Bmi 30-34.9 ALLERGIES No Known Allergies MEDICATIONS: cloNIDine HCl (CATAPRES) 0.1 mg tablet Take 1 tablet by mouth two times a day. hydroCHLOROthiazide 25 mg tablet Take 1 tablet by mouth once daily. potassium chloride ER (KLOR-CON) 20 mEq tablet Take 1 tablet by mouth three times a day. apixaban (ELIQUIS) 5 mg tab(s) Take 1 tablet by mouth two times a day. buPROPion XL (WELLBUTRIN XL) 300 mg 24 hr tablet Take 1 tablet by mouth once daily. metoprolol succinate ER (TOPROL XL) 200 mg 24 hr tablet Take 1 tablet by mouth once daily. calcium carbonate (CALCIUM 500 ORAL) Take 500 mg by mouth twice daily. Cholecalciferol, Vitamin D3, 50 mcg (2,000 unit) cap Take by mouth once daily. gabapentin (NEURONTIN) 100 mg capsule Take 200 mg by mouth daily at bedtime. hydroxychloroquine 200 mg tablet Take by mouth twice daily. sertraline (ZOLOFT) 50 mg tablet Take 1 tablet by mouth once daily. EXAM:BP 132/80 Pulse 100 Temp 36.3 C (97.4 F) (Temporal) Ht 160 cm (5' 2.99 ) Wt 94.1 kg (207 lb 7.3 oz) SpO2 98% BMI 36.76 kg/m Last Wt 06/29/23 : 94.1 kg (207 lb 7.3 oz) 02/27/23 : 88.5 kg (195 lb) 06/26/22 : 85.3 kg (188 lb) 12/25/21 : 94 kg (207 lb 4.8 oz) PHYSICAL EXAM: General Appearance: Well appearing, alert, in no acute distress, well-hydrated, well nourished.. Skin: Skin color, texture, turgor normal, no suspicious rashes or lesions. Lymph Nodes: No cervical lymphadenopathy, No supraclavicular lymphadenopathy Head: Normocephalic, no masses, lesions, tenderness or abnormalities. Eyes: Anicteric sclera. Pupils are equally round and reactive to light. Extraocular movements are intact. Nose/Sinuses: Nares normal, septum midline, mucosa normal, no drainage or sinus tenderness. Oropharynx: Lips, mucosa, and tongue normal, teeth and gums normal, oropharynx normal. Neck: Supple, no adenopathy; thyroid symmetric, normal size, no bruits. Lungs: Lungs clear to auscultation. No wheezing, rhonchi, rales. Heart: RRR without murmur, gallop, or rubs. No ectopy. Neurologic: Gait normal. ASSESSMENT/PLAN: 1. Moderate episode of recurrent major depressive disorder (HCC) - ICD9: 296.32, ICD10: F33.1 (primary diagnosis) - increase from 25 mg to 50 mg - hopefully will help with sleep - SERTRALINE 50 MG TABLET 2. Asymptomatic postmenopausal status - ICD9: V49.81, ICD10: Z78.0 - DXA-AXIAL SKELETON 3. Disorder of bone and cartilage - ICD9: 733.90, ICD10: M89.9, M94.9 - DXA-AXIAL SKELETON 4. Osteopenia, senile - ICD9: 733.90, ICD10: M85.80 - DXA-AXIAL SKELETON 5. Rheumatoid arthritis, involving unspecified site, unspecified whether rheumatoid factor present (HCC) - ICD9: 714.0, ICD10: M06.9 - stable, fu with rheumatology 6. Atrial fibrillation, chronic (HCC) - ICD9: 427.31, ICD10: I48.20 - paroxysmal, doing fine on current meds. 7. Stage 3a chronic kidney disease (HCC) - ICD9: 585.3, ICD10: N18.31 - eGFR: 53 Stable - Counseled on avoiding NSAIDs, adequate hydration - COMP METABOLIC PANEL - CBC 8. Hyperglycemia - ICD9: 790.29, ICD10: R73.9 - check HGB A1C 9. Screening for lipid disorders - ICD9: V77.91, ICD10: Z13.220 - LIPID PANEL BASIC 10. Vitamin D deficiency - ICD9: 268.9, ICD10: E55.9 - VITAMIN D 25 HYDROXY Harriet Perez BP Controlled (<130/80) Never done RSV Vaccine(1 - 1-dose 60+ series) Never done Advance Directive Discussion due on 05/03/2023 documented in this encounter [facility] 06-29-2023 Instructions Harriet Perez MD - 06/29/2023 1:18 PM EST [facility] LAB TEST INFORMATION [facility] BUILDING LAB HOURS: Lab is open: 7:30am to 5:00pm - , 7:30am to 4:00pm on Wed and 8am -12pm on Wed. The lab is located in [facility] on the first floor. There is a registration window at the lab, available 7 am to 3 pm Wednesday - Wednesday. If registration is unavailable at the lab, you may register at the patient registration office near the front lobby of the hospital. SCHEDULING A LAB APPOINTMENT: Laboratory appointments are recommended.Walk ins are still accepted. Call [phone] or schedule via [employer] scheduling ticket. ROUTINE LAB ORDERS 60 days after they are entered. If your lab orders , you may be required to wait in the lab while they are reinstated FUTURE ORDERS are lab tests to be completed on the EXPECTED date. These orders 60 days after the expected date. STANDING ORDERS are recurring orders with an expiration date. The interval will indicate how often the test should be completed. CT / MRI / IVP If you have lab tests ordered for one of these radiology exams, please complete the blood work at least one day prior to the scheduled exam. PRESCRIPTION REFILL REQUESTS Request prescription refills through your [employer] account or contact your Pharmacy. My Chart Schedule My Appointment enables you to view your established primary care provider's open schedule and book an appointment online in real-time. This feature is available in internal medicine, family medicine, or pediatrics at any of our [facility] locations and main campus. BONE MINERAL DENSITY PATIENT INSTRUCTIONS ======= Bone mineral density testing measures the amount of calcium in certain parts of your bones. This information determines how strong your bones are. The test is used to detect osteoporosis, a disease in which the bone's mineral content and density are low, increasing a person's risk of fractures. The lumbar spine (lower back) and the hip are the skeletal sites usually examined. For the test, remember that: 1. You cannot take this test if you are . 2. Eat a normal diet on the day of the test. 3. Take your medications as you normally would. 4. DO NOT take calcium supplements (such as Tums) for 24 hours before the test. 5. On the day of the test, leave valuables (jewelry or credit cards) at home. 6. The test should be performed prior to oral, rectal or IV contrast studies, or at least 7 days after any of these studies. For the test, you may be asked to wear a hospital gown. You will lie on your back, on a padded table, in a comfortable position. Generally, you can resume your usual activities immediately. documented in this encounter [facility] 06-18-2023 Miscellaneous Notes The following approved medication requests have been transmitted electronically. Requested Prescriptions Signed Prescriptions Disp Refills cloNIDine HCl (CATAPRES) 0.1 mg tablet 180 tablet 3 Sig: Take 1 tablet by mouth two times a day. Authorizing Provider: MIRNA APONTE APRN.PLEAT TAPER Patient's request for medication is as follows: Requested Prescriptions Pending Prescriptions Disp Refills cloNIDine HCl (CATAPRES) 0.1 mg tablet 180 tablet 3 Sig: Take 1 tablet by mouth two times a day. Prescription(s) as above. Please process accordingly. Olivia Chery Ma documented in this encounter [facility] 06-17-2023 Miscellaneous Notes Message from [employer]: Refills have been requested for the following medications: metoprolol succinate ER (TOPROL XL) 200 mg 24 hr tablet [Edith Foster] Preferred pharmacy: Other - [facility] Delivery method: Pickup Medication renewals requested in this message routed separately: hydroCHLOROthiazide 25 mg tablet [Harriet Perez MD] sertraline (ZOLOFT) 25 mg tablet [Harriet Perez MD] documented in this encounter [facility] 02-27-2023 Note HNO ID: [id number] Author: Harriet Perez MD Service: ? Author Type: Physician Type: Progress Notes Filed: 03/06/2023 1:00 PM Note Text: Patient presents with: Follow Up HPI: Nicole Kulkarni is a 77 year old female who presents to the office today for follow up. Depression Increased wellbutrin, prolonged grief from 's sudden passing - thinks its helping Still getting used to living alone, dealing with things he used to take care of Seeing a counselor, bereavement counselor with hospice, individual counseling first then did a group therapy, now back to individual. Still can't fall asleep at night, can't turn her thoughts off at night. Afib - sees dr. galvan On eliquis, metoprolol Feels well, bp runs 120s/60s No palpitations RA - on methotrexate, sees rheum dr. del cid in [place] Also takes gabapentin 200 mg qhs CKD GFR 46 on last labs in October 2022 REVIEW OF SYSTEMS: CONSTITUTIONAL: No fevers, chills, nightsweats, unintended weight loss HEENT: Denies frequent or severe heaches, nasal congestion/sinus symptoms, problematic allergy problems. EYES: No diplopia or blurry vision. CARDIOVASCULAR: No chest pain, dyspnea, palpitations, orthopnea, PND, ankle edema. PULM: No dyspnea, unexplained cough. GI: No dysphagia/odynophagia, problematic reflux, constipation, diarrhea, changes in stool habits, hematochezia, melena. : No new urinary complaints, including dysuria, gross hematuria or pyuria. NEURO: No new balance problems, peripheral weakness/paresthesias or numbness of concern. MUSC-SKEL: No new joint pain, swelling, or erythema. PSY: No concerns regarding depression, anxiety or panic. INTEGUMENTARY: No new skin changes (rash, new or changing mole, new growth) PAST MEDICAL HISTORY Diagnosis Date Arthritis Atrial fibrillation (HCC) Gallstones 2020 incidental finding on us, no symptoms Hypertension Mitral valve disorder PAST SURGICAL HISTORY Procedure Laterality Date JOINT REPLACEMENT HX Bilateral 2012 TKA PAST SURGICAL HISTORY OF 03/18/2021 Laparoscopic cholecystectomy with intraoperative cholangiograms. Dr. Lockett FAMILY HISTORY Problem Relation Age of Onset No Known Problems Mother of old age other (ruptured aortic aneurysm) Father 72 No Known Problems Sister other (pulmonary embolism) Son 45 Social History Tobacco Use Smoking status: Never Smokeless tobacco: Never Vaping Use Vaping Use: Never used Substance Use Topics Alcohol use: Never Drug use: Never ACTIVE PROBLEM LIST Atrial Fibrillation, Chronic (Hcc) Non-Rheumatic Mitral Regurgitation Essential Hypertension Rheumatoid Arthritis (Hcc) Obesity, Class II, Bmi 35-39.9 Moderate Episode of Recurrent Major Depressive Disorder (Hcc) Nonrheumatic Aortic Valve Insufficiency Chronic Anticoagulation CKD (chronic kidney disease) Stage 3, GFR 30-59 ml/min Obesity, Class I, Bmi 30-34.9 ALLERGIES No Known Allergies MEDICATIONS: hydroCHLOROthiazide 25 mg tablet Take 1 tablet by mouth once daily. potassium chloride ER (KLOR-CON) 20 mEq tablet Take 1 tablet by mouth three times daily. metoprolol succinate ER (TOPROL XL) 200 mg 24 hr tablet Take 1 tablet by mouth once daily. apixaban (ELIQUIS) 5 mg tab(s) Take 1 tablet by mouth twice daily. buPROPion XL (WELLBUTRIN XL) 300 mg 24 hr tablet Take 1 tablet by mouth once daily. cloNIDine HCl (CATAPRES) 0.1 mg tablet TAKE 1 TABLET TWICE A DAY calcium carbonate (CALCIUM 500 ORAL) Take 500 mg by mouth twice daily. Cholecalciferol, Vitamin D3, 50 mcg (2,000 unit) cap Take by mouth once daily. gabapentin (NEURONTIN) 100 mg capsule Take 200 mg by mouth daily at bedtime. hydroxychloroquine 200 mg tablet Take by mouth twice daily. sertraline (ZOLOFT) 25 mg tablet Take 1 tablet by mouth once daily. EXAM:BP 130/76 Pulse 90 Temp 36.5 ?C (97.7 ?F) (Temporal) Ht 160 cm (5' 2.99 ) Wt 88.5 kg (195 lb) SpO2 99% BMI 34.55 kg/m? Last Wt 02/27/23 : 88.5 kg (195 lb) 06/26/22 : 85.3 kg (188 lb) 12/25/21 : 94 kg (207 lb 4.8 oz) 12/02/21 : 94.5 kg (208 lb 4.8 oz) PHYSICAL EXAM: General Appearance: Well appearing, alert, in no acute distress, well-hydrated, well nourished.. Skin: Skin color, texture, turgor normal, no suspicious rashes or lesions. Lungs: Lungs clear to auscultation. No wheezing, rhonchi, rales. Heart: RRR without murmur, gallop, or rubs. No ectopy. Neurologic: Gait normal. ASSESSMENT/PLAN: 1. Anxiety with depression - ICD9: 300.4, ICD10: F41.8 (primary diagnosis) -- start SERTRALINE 25 MG TABLET 2. Encounter for immunization - ICD9: V03.89, ICD10: Z23 - INFLUENZA VACCINE, PRSV FREE, AGE 65+ YR, HIGH DOSE, QUADRIVALENT (FLUZONE HIGH-DOSE) - Mo-DV COVID-19 VACCINE ( SEASON) AGE 12+ YR 3. Stage 3a chronic kidney disease (HCC) - ICD9: 585.3, ICD10: N18.31 - eGFR: Stable - Counseled on avoiding NSAIDs, adequate hydration - RENAL FUNCTION PANEL (more content not included)... [facility] 02-27-2023 Note HNO ID: [id number] Author: Lin Mensah LPN Service: ? Author Type: ? Type: Progress Notes Filed: 03/06/2023 1:00 PM Note Text: BP Controlled (<130/80) Never done RSV Vaccine(1 - 1-dose 60+ series) Never done Advance Directive Discussion due on 05/03/2022 Serum Creatinine due on 11/26/2022 Influenza Vaccine(1) due on 01/01/2023 Covid-19 Vaccine( season) due on 01/01/2023 [facility] 02-27-2023 History of Present illness Narrative Patient presents with: Follow Up HPI: Nicole Kulkarni is a 77 year old female who presents to the office today for follow up. Depression Increased wellbutrin, prolonged grief from 's sudden passing - thinks its helping Still getting used to living alone, dealing with things he used to take care of Seeing a counselor, bereavement counselor with hospice, individual counseling first then did a group therapy, now back to individual. Still can't fall asleep at night, can't turn her thoughts off at night. Afib - sees dr. galvan On eliquis, metoprolol Feels well, bp runs 120s/60s No palpitations RA - on methotrexate, sees rheum dr. del cid in [place] Also takes gabapentin 200 mg qhs CKD GFR 46 on last labs in October 2022 REVIEW OF SYSTEMS: CONSTITUTIONAL: No fevers, chills, nightsweats, unintended weight loss HEENT: Denies frequent or severe heaches, nasal congestion/sinus symptoms, problematic allergy problems. EYES: No diplopia or blurry vision. CARDIOVASCULAR: No chest pain, dyspnea, palpitations, orthopnea, PND, ankle edema. PULM: No dyspnea, unexplained cough. GI: No dysphagia/odynophagia, problematic reflux, constipation, diarrhea, changes in stool habits, hematochezia, melena. : No new urinary complaints, including dysuria, gross hematuria or pyuria. NEURO: No new balance problems, peripheral weakness/paresthesias or numbness of concern. MUSC-SKEL: No new joint pain, swelling, or erythema. PSY: No concerns regarding depression, anxiety or panic. INTEGUMENTARY: No new skin changes (rash, new or changing mole, new growth) PAST MEDICAL HISTORY Diagnosis Date Arthritis Atrial fibrillation (HCC) Gallstones 2020 incidental finding on us, no symptoms Hypertension Mitral valve disorder PAST SURGICAL HISTORY Procedure Laterality Date JOINT REPLACEMENT HX Bilateral 2012 TKA PAST SURGICAL HISTORY OF 03/18/2021 Laparoscopic cholecystectomy with intraoperative cholangiograms. Dr. Lockett FAMILY HISTORY Problem Relation Age of Onset No Known Problems Mother of old age other (ruptured aortic aneurysm) Father 72 No Known Problems Sister other (pulmonary embolism) Son 45 Social History Tobacco Use Smoking status: Never Smokeless tobacco: Never Vaping Use Vaping Use: Never used Substance Use Topics Alcohol use: Never Drug use: Never ACTIVE PROBLEM LIST Atrial Fibrillation, Chronic (Hcc) Non-Rheumatic Mitral Regurgitation Essential Hypertension Rheumatoid Arthritis (Hcc) Obesity, Class II, Bmi 35-39.9 Moderate Episode of Recurrent Major Depressive Disorder (Hcc) Nonrheumatic Aortic Valve Insufficiency Chronic Anticoagulation CKD (chronic kidney disease) Stage 3, GFR 30-59 ml/min Obesity, Class I, Bmi 30-34.9 ALLERGIES No Known Allergies MEDICATIONS: hydroCHLOROthiazide 25 mg tablet Take 1 tablet by mouth once daily. potassium chloride ER (KLOR-CON) 20 mEq tablet Take 1 tablet by mouth three times daily. metoprolol succinate ER (TOPROL XL) 200 mg 24 hr tablet Take 1 tablet by mouth once daily. apixaban (ELIQUIS) 5 mg tab(s) Take 1 tablet by mouth twice daily. buPROPion XL (WELLBUTRIN XL) 300 mg 24 hr tablet Take 1 tablet by mouth once daily. cloNIDine HCl (CATAPRES) 0.1 mg tablet TAKE 1 TABLET TWICE A DAY calcium carbonate (CALCIUM 500 ORAL) Take 500 mg by mouth twice daily. Cholecalciferol, Vitamin D3, 50 mcg (2,000 unit) cap Take by mouth once daily. gabapentin (NEURONTIN) 100 mg capsule Take 200 mg by mouth daily at bedtime. hydroxychloroquine 200 mg tablet Take by mouth twice daily. sertraline (ZOLOFT) 25 mg tablet Take 1 tablet by mouth once daily. EXAM:BP 130/76 Pulse 90 Temp 36.5 C (97.7 F) (Temporal) Ht 160 cm (5' 2.99 ) Wt 88.5 kg (195 lb) SpO2 99% BMI 34.55 kg/m Last Wt 02/27/23 : 88.5 kg (195 lb) 06/26/22 : 85.3 kg (188 lb) 12/25/21 : 94 kg (207 lb 4.8 oz) 12/02/21 : 94.5 kg (208 lb 4.8 oz) PHYSICAL EXAM: General Appearance: Well appearing, alert, in no acute distress, well-hydrated, well nourished.. Skin: Skin color, texture, turgor normal, no suspicious rashes or lesions. Lungs: Lungs clear to auscultation. No wheezing, rhonchi, rales. Heart: RRR without murmur, gallop, or rubs. No ectopy. Neurologic: Gait normal. ASSESSMENT/PLAN: 1. Anxiety with depression - ICD9: 300.4, ICD10: F41.8 (primary diagnosis) -- start SERTRALINE 25 MG TABLET 2. Encounter for immunization - ICD9: V03.89, ICD10: Z23 - INFLUENZA VACCINE, PRSV FREE, AGE 65+ YR, HIGH DOSE, QUADRIVALENT (FLUZONE HIGH-DOSE) - Mo-DV COVID-19 VACCINE (2022- SEASON) AGE 12+ YR 3. Stage 3a chronic kidney disease (HCC) - ICD9: 585.3, ICD10: N18.31 - eGFR: Stable - Counseled on avoiding NSAIDs, adequate hydration - RENAL FUNCTION PANEL - CBC Harriet Perez BP Controlled (<130/80) Never done RSV Vaccine(1 - 1-dose 60+ series) Never done Advance Directive Discussion due on 05/03/2022 Serum Creatinine due on 11/26/2022 Influenza Vaccine(1) due on 01/01/2023 Covid-19 Vaccine( season) due on 01/01/2023 documented in this encounter [facility] 02-15-2023 Note HNO ID: [id number] Author: Stepan Galvan, DO Service: ? Author Type: Physician Type: Progress Notes Filed: 02/15/2023 12:15 PM Note Text: [facility] CARDIOLOGY [facility] OUTPATIENT VISIT DATE February 15, 2023 PRIMARY CARE PHYSICIAN: Harriet Perez (Dion) [address] [place] [address] HISTORY OF PRESENT ILLNESS: Ms. Kulkarni is a 77 year old female. The patient returns for follow-up with a history of permanent atrial fibrillation as well as moderate mitral regurgitation and mild aortic insufficiency, hypertension and long-term oral anticoagulation with Eliquis. She is mourning the loss of her who suddenly in his sleep since we have last seen her. She has had to help with her family and friends with no significant change in her life. She denies chest discomfort, dyspnea, exercise intolerance, orthopnea, paroxysmal nocturnal dyspnea, palpitations, near-syncope, syncope, GI/ bleeding or melena. PLAN AND RECOMMENDATIONS: The patient appears stable without symptoms that would suggest angina or cardiac decompensation. Heart rate and blood pressure are well controlled. We will need to update her echocardiogram to reevaluate her valvular status. Dietary and lifestyle modification was reemphasized to facilitate risk factor reduction. We will otherwise look forward to reevaluating her in 1 years time. Vitals: BP 126/82 Pulse 88 Ht 160 cm (5' 3 ) SpO2 100% BMI 33.30 kg/m? Physical Exam Vitals reviewed. Constitutional: Appearance: She is well-developed. HENT: Head: Normocephalic and atraumatic. Eyes: Pupils: Pupils are equal, round, and reactive to light. Neck: Thyroid: No thyromegaly. Vascular: No JVD. Cardiovascular: Rate and Rhythm: Normal rate. Rhythm irregular. Heart sounds: Normal heart sounds. No murmur heard. No friction rub. No gallop. Pulmonary: Effort: Pulmonary effort is normal. No respiratory distress. Breath sounds: Normal breath sounds. No wheezing or rales. Abdominal: General: Bowel sounds are normal. Palpations: Abdomen is soft. Musculoskeletal: General: Normal range of motion. Cervical back: Normal range of motion and neck supple. Skin: General: Skin is warm and dry. Coloration: Skin is not pale. Neurological: Mental Status: She is alert and oriented to person, place, and time. Cranial Nerves: No cranial nerve deficit. Psychiatric: Behavior: Behavior normal. Thought Content: Thought content normal. Judgment: Judgment normal. Review of Systems Constitutional: Negative for activity change and fatigue. HENT: Negative for ear pain and facial swelling. Eyes: Negative for pain and discharge. Respiratory: Negative for chest tightness and shortness of breath. Cardiovascular: Negative for chest pain, palpitations and leg swelling. Gastrointestinal: Negative for abdominal pain, blood in stool, nausea and vomiting. Endocrine: Negative for cold intolerance and heat intolerance. Genitourinary: Negative for frequency and hematuria. Musculoskeletal: Negative for arthralgias and gait problem. Skin: Negative for color change, pallor and rash. Allergic/Immunologic: Negative for immunocompromised state. Neurological: Negative for dizziness, syncope, light-headedness and headaches. Hematological: Negative for adenopathy. Does not bruise/bleed easily. Psychiatric/Behavioral: Negative for confusion. The patient is not nervous/anxious. PAST MEDICAL HISTORY Diagnosis Date Arthritis Atrial fibrillation (HCC) Gallstones 2020 incidental finding on us, no symptoms Hypertension Mitral valve disorder PAST SURGICAL HISTORY Procedure Laterality Date JOINT REPLACEMENT HX Bilateral 2013 TKA PAST SURGICAL HISTORY OF 03/18/2021 Laparoscopic cholecystectomy with intraoperative cholangiograms. Dr. Lockett Social History Tobacco Use Smoking status: Never Smokeless tobacco: Never Vaping Use Vaping Use: Never used Substance Use Topics Alcohol use: Never Drug use: Never FAMILY HISTORY Problem Relation Age of Onset No Known Problems Mother of old age other (ruptured aortic aneurysm) Father 72 No Known Problems Sister other (pulmonary embolism) Son 45 ALLERGIES No Known Allergies CURRENT MEDICATIONS: apixaban (ELIQUIS) 5 mg tab(s) Take 1 tablet by mouth twice daily. buPROPion XL (WELLBUTRIN XL) 300 mg 24 hr tablet Take 1 tablet by mouth once daily. calcium carbonate (CALCIUM 500 ORAL) Take 500 mg by mouth twice daily. Cholecalciferol, Vitamin D3, 50 mcg (2,000 unit) cap Take by mouth once daily. cloNIDine HCl (CATAPRES) 0.1 mg tablet TAKE 1 TABLET TWICE A DAY folic acid 1 mg tablet Take 1 mg by mouth once daily. (Patient not taking: Reported on 02/15/2023) gabapentin (NEURONTIN) 100 mg capsule Take 200 mg by mouth daily at bedtime. hydroCHLOROthiazide (HY (more content not included)... [facility] 12-22-2022 Miscellaneous Notes External CMP and CBC results reviewed. Short-term prescription provided to get her to her follow-up visit. The following approved medication requests have been transmitted electronically. Requested Prescriptions Signed Prescriptions Disp Refills potassium chloride ER (KLOR-CON) 20 mEq tablet 270 tablet 1 Sig: Take 1 tablet by mouth three times daily. Authorizing Provider: MIRNA APONTE metoprolol succinate ER (TOPROL XL) 200 mg 24 hr tablet 90 tablet 1 Sig: Take 1 tablet by mouth once daily. Authorizing Provider: MIRNA APONTE apixaban (ELIQUIS) 5 mg tab(s) 180 tablet 1 Sig: Take 1 tablet by mouth twice daily. Authorizing Provider: MIRNA APONTE APRN.PLEAT TAPER Pended refill Eliquis 5 mg Toprol XL 200 mg potassium chloride 20 mEq PT has appointment on 02/15/23 Jacky Patient called into the office and scheduled an appointment with Dr Galvan and states that she no longer plans to transfer care to [place]. States that she likes Dr Galvan and will make the drive up to [place]. Called PT left VM 2 nd time ask if he is still planning to transfer care to [place]. I can provide short term rx to last until she can get established. Last OV with Jacky 12/2021 - if she plans to continue with us she will need a follow up visit. Will send Rx once I know what her plan is. Ayleen Wilhelm APRN.BIRDIE Called PT left Please call patient and ask if he is still planning to transfer care to [place]. I can provide short term rx to last until she can get established. Last OV with Jacky 12/2021 - if she plans to continue with us she will need a follow up visit. Will send Rx once I know what her plan is. Ayleen Wilhelm APRN.BIRDIE Please call patient and ask if he is still planning to transfer care to [place]. I can provide short term rx to last until she can get established. Last OV with Jacky 12/2021 - if she plans to continue with us she will need a follow up visit. Will send Rx once I know what her plan is. Ayleen Wilhelm APRN.BIRDIE Patient requesting refills as follows: Requested Prescriptions Pending Prescriptions Disp Refills potassium chloride ER (KLOR-CON) 20 mEq tablet 270 tablet 3 Sig: Take 1 tablet by mouth three times daily. metoprolol succinate ER (TOPROL XL) 200 mg 24 hr tablet 90 tablet 3 Sig: Take 1 tablet by mouth once daily. apixaban (ELIQUIS) 5 mg tab(s) 180 tablet 3 Sig: Take 1 tablet by mouth twice daily. Please review and advise. Stormy Frank MA Message from [facility]: Refills have been requested for the following medications: potassium chloride ER (K-DUR, KLOR-CON) 20 mEq tablet [Ana D Booker] metoprolol succinate ER (TOPROL XL) 200 mg 24 hr tablet [Ana D Booker] apixaban (ELIQUIS) 5 mg tab(s) [Ana D Booker] Preferred pharmacy: [facility] [place] [address] [address] [facility] [phone] Delivery meth od: Mail Medication renewals requested in this message routed separately: buPROPion XL (WELLBUTRIN XL) 300 mg 24 hr tablet [Dr. Hilton Perez] documented in this encounter [facility] 12-01-2022 Miscellaneous Notes Reviewed. Madhuri Apodaca PA-C Received labs from [facility]. Placed in provider's inbox for review. Route to [place] for scanning. documented in this encounter [facility] 11-06-2022 Miscellaneous Notes Reviewed. Madhuri Apodaca PA-C Covering for Dr. Perez Placed blood results in epic and sent to provider CBC with Diff Sakshi Schmidt MA documented in this encounter [facility] 10-21-2022 Note Patient Outreach (NE TNAV) NICOLE KULKARNI ([id number]) 1945 F Date Time Provider Department 10/21/22 NAYELI AGUSTIN ([facility]) NETNAV During your visit today, we recorded the following information about you: Nayeli Agustin 10/21/2022 7:41 AM Signed POPULATION HEALTH NAVIGATION OUTREACH Action/ Past due for F/U visit 12/24/22. LVM, ev-social message sent Patient Identified by Name and : NO Outreach Outcome/Action Unable to reach patient: Left message Slingrhart message sent Did you use a PCP flex slot to schedule this appointment? N/A Reason for Outreach Care Gap or Scheduling/Wellness visits Payer: Payor: MARIA DEL ROSARIO [employer] AND [employer] / Plan: ANTHEM [employer]IBL[employer] ACCESS / Product Type: PPO / Care Gap Reviewed:: Follow-up appointment Reminder: Reminder note to check Health Maintenance for items below Health Maintenance items due: ADVANCE DIRECTIVE DISCUSSION due on 05/03/2022 Navigation Signature: Nayeli Agustin October 21, 2022 7:34 AM Allergies As of Date: 10/21/2022 (No Known Allergies) Date Reviewed: 06/26/2022 Reviewed by: Lin Mensah LPN - Fully Assessed Reason for Visit: Population Health Navigation Outreach [3910] Cmt: Maria Del Rosario care gap Prescriptions as of 10/21/2022 - buPROPion XL (WELLBUTRIN XL) 300 mg 24 hr tablet Take 1 tablet by mouth once daily. - cloNIDine HCl (CATAPRES) 0.1 mg tablet TAKE 1 TABLET TWICE A DAY - hydroCHLOROthiazide (HYDRODIURIL, ESIDRIX) 25 mg tablet Take 1 tablet by mouth once daily. - potassium chloride ER (K-DUR, KLOR-CON) 20 mEq tablet Take 1 tablet by mouth three times daily. - metoprolol succinate ER (TOPROL XL) 200 mg 24 hr tablet Take 1 tablet by mouth once daily. - apixaban (ELIQUIS) 5 mg tab(s) Take 1 tablet by mouth twice daily. - calcium carbonate (CALCIUM 500 ORAL) Take 500 mg by mouth twice daily. - Cholecalciferol, Vitamin D3, 50 mcg (2,000 unit) cap Take by mouth once daily. - gabapentin (NEURONTIN) 100 mg capsule Take 200 mg by mouth daily at bedtime. - hydroxychloroquine 200 mg tablet Take by mouth twice daily. - methotrexate 2.5 mg tablet Take 2.5 mg by mouth every Wednesday. 5 tabs every Wednesday - folic acid 1 mg tablet Take 1 mg by mouth once daily. Problem List As Of Date 10/21/2022 Noted Resolved Nausea AND vomiting [R11.2] 01/28/2019 08/26/2020 Atrial fibrillation, chronic (HCC) [I48.20] 08/10/2019 Non-rheumatic mitral regurgitation [I34.0] 08/10/2019 Essential hypertension [I10] 08/10/2019 Rheumatoid arthritis (HCC) [M06.9] 08/26/2020 Obesity, Class II, BMI 35-39.9 [E66.9] 08/26/2020 Moderate episode of recurrent major depressive *08/26/2020 Nonrheumatic aortic valve insufficiency [I35.1] 05/19/2021 Chronic anticoagulation [Z79.01] 05/19/2021 CKD (chronic kidney disease) Stage 3, GFR 30-59*06/02/2021 Obesity, Class I, BMI 30-34.9 [E66.9] 06/26/2022 Encounter Status:Closed by NAYELI AGUSTIN on 10/21/22 [facility] 10-21-2022 Note HNO ID: [id number] Author: Nayeli Agustin Service: ? Author Type: ? Type: Progress Notes Filed: 10/21/2022 7:41 AM Note Text: POPULATION HEALTH NAVIGATION OUTREACH Action/FYI Past due for F/U visit 12/24/22. LVM, ev-social message sent Patient Identified by Name and : NO Outreach Outcome/Action Unable to reach patient: Left message Slingrhart message sent Did you use a PCP flex slot to schedule this appointment? N/A Reason for Outreach Care Gap or Scheduling/Wellness visits Payer: Payor: [employer] / Plan: ANTHEM MEDIBLUE ACCESS / Product Type: PPO / Care Gap Reviewed:: Follow-up appointment Reminder: Reminder note to check Health Maintenance for items below Health Maintenance items due: ADVANCE DIRECTIVE DISCUSSION due on 05/03/2022 Navigation Signature: Nayeli Agustin October 21, 2022 7:34 AM [facility] 10-21-2022 History of Present illness Narrative POPULATION HEALTH NAVIGATION OUTREACH Action/FYI Past due for F/U visit 12/24/22. LVM, mychart message sent Patient Identified by Name and : NO Outreach Outcome/Action Unable to reach patient: Left message MyChart message sent Did you use a PCP flex slot to schedule this appointment? N/A Reason for Outreach Care Gap or Scheduling/Wellness visits Payer: Payor: [employer] / Plan: ANTHEM MEDIBLUE ACCESS / Product Type: PPO / Care Gap Reviewed:: Follow-up appointment Reminder: Reminder note to check Health Maintenance for items below Health Maintenance items due: ADVANCE DIRECTIVE DISCUSSION due on 05/03/2022 Navigation Signature: Nayeli Agustin October 21, 2022 7:34 AM documented in this encounter [facility] 08-06-2022 Miscellaneous Notes Noted. Received 08-05-22 from [facility]. Placed in provider's inbox for review. Route to [place] scanning documented in this encounter [facility] 06-26-2022 History of Present illness Narrative Patient presents with: 6 Month Exam HPI: Nicole Kulkarni is a 77 year old female who presents to the office today for follow up. Ankle fracture 01/2022 s/p ORIF x 2 Doing fine now, no concerns. Driving ok now Pt reports having delirium in the hospital, nothing like that before, she had UTI at the time per her report. Depression Feeling well on wellbutrin right before ankle fracture, suddenly, just didn't wake up one morning. Still grieving, sad. Good social support CKD GFR 60 Afib - sees dr. galvan On eliquis, metoprolol Feels well, bp runs 120s/60s No palpitations RA - on methotrexate, sees rheum dr. del cid in [place] Also takes gabapentin Had colonoscopy on 09/03/2021 - had 4 tubular adenomas, repeat in 3-5 years REVIEW OF SYSTEMS: CONSTITUTIONAL: No fevers, chills, nightsweats, unintended weight loss HEENT: Denies frequent or severe heaches, nasal congestion/sinus symptoms, problematic allergy problems. EYES: No diplopia or blurry vision. CARDIOVASCULAR: No chest pain, dyspnea, palpitations, orthopnea, PND, ankle edema. PULM: No dyspnea, unexplained cough. GI: No dysphagia/odynophagia, problematic reflux, constipation, diarrhea, changes in stool habits, hematochezia, melena. : No new urinary complaints, including dysuria, gross hematuria or pyuria. NEURO: No new balance problems, peripheral weakness/paresthesias or numbness of concern. MUSC-SKEL: No new joint pain, swelling, or erythema. PSY: No concerns regarding depression, anxiety or panic. INTEGUMENTARY: No new skin changes (rash, new or changing mole, new growth) PAST MEDICAL HISTORY Diagnosis Date Arthritis Atrial fibrillation (HCC) Gallstones 2020 incidental finding on us, no symptoms Hypertension Mitral valve disorder PAST SURGICAL HISTORY Procedure Laterality Date JOINT REPLACEMENT HX Bilateral 2012 TKA PAST SURGICAL HISTORY OF 03/18/2021 Laparoscopic cholecystectomy with intraoperative cholangiograms. Dr. Lockett FAMILY HISTORY Problem Relation Age of Onset No Known Problems Mother of old age other (ruptured aortic aneurysm) Father 72 No Known Problems Sister other (pulmonary embolism) Son 45 Social History Tobacco Use Smoking status: Never Smokeless tobacco: Never Vaping Use Vaping Use: Never used Substance Use Topics Alcohol use: Never Drug use: Never ACTIVE PROBLEM LIST Atrial Fibrillation, Chronic (Hcc) Non-Rheumatic Mitral Regurgitation Essential Hypertension Rheumatoid Arthritis (Hcc) Obesity, Class II, Bmi 35-39.9 Moderate Episode of Recurrent Major Depressive Disorder (Hcc) Nonrheumatic Aortic Valve Insufficiency Chronic Anticoagulation CKD (chronic kidney disease) Stage 3, GFR 30-59 ml/min Obesity, Class I, Bmi 30-34.9 ALLERGIES No Known Allergies MEDICATIONS: cloNIDine HCl (CATAPRES) 0.1 mg tablet^TAKE 1 TABLET TWICE A DAY^Disp: 180 tablet^Rfl: 3 hydroCHLOROthiazide (HYDRODIURIL, ESIDRIX) 25 mg tablet^Take 1 tablet by mouth once daily.^Disp: 90 tablet^Rfl: 3 potassium chloride ER (K-DUR, KLOR-CON) 20 mEq tablet^Take 1 tablet by mouth three times daily.^Disp: 270 tablet^Rfl: 3 metoprolol succinate ER (TOPROL XL) 200 mg 24 hr tablet^Take 1 tablet by mouth once daily.^Disp: 90 tablet^Rfl: 3 apixaban (ELIQUIS) 5 mg tab(s)^Take 1 tablet by mouth twice daily.^Disp: 180 tablet^Rfl: 3 calcium carbonate (CALCIUM 500 ORAL)^Take 500 mg by mouth twice daily.^Disp: ^Rfl: Cholecalciferol, Vitamin D3, 50 mcg (2,000 unit) cap^Take by mouth once daily.^Disp: ^Rfl: gabapentin (NEURONTIN) 100 mg capsule^Take 200 mg by mouth daily at bedtime. ^Disp: ^Rfl: hydroxychloroquine 200 mg tablet^Take by mouth twice daily. ^Disp: ^Rfl: methotrexate 2.5 mg tablet^Take 2.5 mg by mouth every Wednesday. 5 tabs every Wednesday ^Disp: ^Rfl: folic acid 1 mg tablet^Take 1 mg by mouth once daily. ^Disp: ^Rfl: buPROPion XL (WELLBUTRIN XL) 300 mg 24 hr tablet^Take 1 tablet by mouth once daily.^Disp: 90 tablet^Rfl: 3 EXAM:BP 122/78 Pulse 96 Temp 36.4 C (97.6 F) (Temporal) Ht 160 cm (5' 2.99 ) Wt 85.3 kg (188 lb) SpO2 96% BMI 33.31 kg/m Last Wt 06/26/22 : 85.3 kg (188 lb) 12/25/21 : 94 kg (207 lb 4.8 oz) 12/02/21 : 94.5 kg (208 lb 4.8 oz) 06/02/21 : 93.3 kg (205 lb 9.6 oz) PHYSICAL EXAM: General Appearance: Well appearing, alert, in no acute distress, well-hydrated, well nourished.. Skin: Skin color, texture, turgor normal, no suspicious rashes or lesions. Lungs: Lungs clear to auscultation. No wheezing, rhonchi, rales. Heart: RRR without murmur, gallop, or rubs. No ectopy. Neurologic: Gait normal. ASSESSMENT/PLAN: 1. Grief reaction - ICD9: 309.0, ICD10: F43.21 (primary diagnosis) - discussed grief share groups 2. Moderate episode of recurrent major depressive disorder (HCC) - ICD9: 296.32, ICD10: F33.1 - increase BUPROPION XL 300 MG 24 HR TAB 3. Rheumatoid arthritis, involving unspecified site, unspecified whether rheumatoid factor present (HCC) - ICD9: 714.0, ICD10: M06.9 - fu with rheum 4. Stage 3a chronic kidney disease (HCC) - ICD9: 585.3, ICD10: N18.31 - eGFR: Stable - BASIC METABOLIC PNL - CBC 5. Atrial fibrillation, chronic (HCC) - ICD9: 427.31, ICD10: I48.20 - BASIC METABOLIC PNL 6. Essential hypertension - ICD9: 401.9, ICD10: I10 7. Obesity, Class I, BMI 30-34.9 - ICD9: 278.00, ICD10: E66.9 Stable 8. Screening for lipid disorders - ICD9: V77.91, ICD10: Z13.220 - LIPID PANEL BASIC Harriet Perez BP CONTROLLED (<130/80) Never done ADVANCE DIRECTIVE DISCUSSION due on 05/03/2022 documented in this encounter [facility] 06-26-2022 Instructions Lin Mensah LPN - 06/26/2022 2:51 PM EST [facility] TEST INFORMATION [facility] HOURS: Lab is open: 7:30am to 5:00pm - , 7:30am to 4:00pm on Wed and 8am -12pm on Wed. The lab is located in [facility] on the first floor. There is a registration window at the lab, available 7 am to 3 pm Wednesday - Wednesday. If registration is unavailable at the lab, you may register at the patient registration office near the front lobby of the hospital. SCHEDULING A LAB APPOINTMENT: Laboratory appointments are recommended.Walk ins are still accepted. Call [phone] or schedule via [facility] scheduling ticket. ROUTINE LAB ORDERS 60 days after they are entered. If your lab orders , you may be required to wait in the lab while they are reinstated FUTURE ORDERS are lab tests to be completed on the EXPECTED date. These orders 60 days after the expected date. STANDING ORDERS are recurring orders with an expiration date. The interval will indicate how often the test should be completed. CT / MRI / IVP If you have lab tests ordered for one of these radiology exams, please complete the blood work at least one day prior to the scheduled exam. PRESCRIPTION REFILL REQUESTS Request prescription refills through your [facility] account or contact your Pharmacy. My Chart Schedule My Appointment enables you to view your established primary care provider's open schedule and book an appointment online in real-time. This feature is available in internal medicine, family medicine, or pediatrics at any of our [facility] locations and main campus. documented in this encounter [facility] 06-16-2022 Miscellaneous Notes Please review and advise. documented in this encounter [facility] 06-08-2022 Miscellaneous Notes MATTHEW 12/25/21. NOV not scheduled. Labs 11/26/21 CMP 11/12/21 (external lab). documented in this encounter [facility] 05-26-2022 Miscellaneous Notes Reviewed and sent to scanning. Discharge instructions from [facility] Placed on Dr. Perez's desk for review. Lin Mensah LPN documented in this encounter [facility] 05-18-2022 Miscellaneous Notes Reviewed. Madhuri Apodaca PA-C Received Labs from [facility]. Placed in provider's inbox for review. Route to [place] for scanning documented in this encounter [facility] 02-19-2022 Miscellaneous Notes Sent to scanning. Lin Mensah LPN Noted. Received fax 02/13/22 from [facility]. Placed in provider's inbox for review. documented in this encounter [facility] 02-05-2022 Miscellaneous Notes Received fax from [facility] for cardiac clearance. Placed in Dr Galvan office. documented in this encounter [facility] 01-26-2022 Miscellaneous Notes Reviewed. Madhuri Apodaca PA-C ER visit from 01/22/22. Records placed on Dr. Perez's desk for review. Return for scanning. Lin Mensah LPN documented in this encounter [facility] 01-01-2022 Miscellaneous Notes Creditable message sent to patient with message below attached. Lin Mensah LPN Left message for patient to call office for lab results. Lin Mensah LPN Left message for patient to call the office for lab results. Lin Mensah LPN Labs all look stable, kidney function similar to before. Lab results from 12/10/21, placed on 's desk for review. Return for scanning. Lin Mensah LPN documented in this encounter [facility] 12-25-2021 History of Present illness Narrative Images from the original note were not included. [facility] SECTION OF [facility] CARDIOLOGY [facility] OUTPATIENT VISIT DATE December 25, 2021 PRIMARY CARE PHYSICIAN: Harriet Perez ([place]) [address] [place] [id number] HISTORY OF PRESENT ILLNESS: Ms. Kulkarni is a 76 year old female. The patient returns for follow-up second history of chronic atrial fibrillation. She has additional history of hypertension as well as moderate mitral and aortic insufficiency. She remains on long-term oral anticoagulation with Eliquis. She denies chest scar, dyspnea, orthopnea, paroxysmal nocturnal dyspnea, palpitations, near-syncope or syncope. She denies GI/U bleeding or melena. Her accompanies her at the appointment today. PLAN AND RECOMMENDATIONS: The patient remained stable without symptoms of suggest angiocardiogram station. Heart rate, blood pressure and recent cholesterol profile are favorable. She now has moderate mitral regurgitation. She will need repeat echocardiography for surveillance in 12 to 18 months. Dietary and lifestyle modification was reemphasized to facilitate risk factor reduction. We will look forward to reevaluating her in 6 months time. Vitals: BP 130/80 Pulse 75 Ht 160 cm (5' 3 ) Wt 94 kg (207 lb 4.8 oz) SpO2 97% BMI 36.72 kg/m Physical Exam Vitals reviewed. Constitutional: Appearance: She is well-developed. HENT: Head: Normocephalic and atraumatic. Eyes: Pupils: Pupils are equal, round, and reactive to light. Neck: Thyroid: No thyromegaly. Vascular: No JVD. Cardiovascular: Rate and Rhythm: Normal rate and regular rhythm. Heart sounds: Normal heart sounds. No murmur heard. No friction rub. No gallop. Pulmonary: Effort: Pulmonary effort is normal. No respiratory distress. Breath sounds: Normal breath sounds. No wheezing or rales. Abdominal: General: Bowel sounds are normal. Palpations: Abdomen is soft. Musculoskeletal: General: Normal range of motion. Cervical back: Normal range of motion and neck supple. Skin: General: Skin is warm and dry. Coloration: Skin is not pale. Neurological: Mental Status: She is alert and oriented to person, place, and time. Cranial Nerves: No cranial nerve deficit. Psychiatric: Behavior: Behavior normal. Thought Content: Thought content normal. Judgment: Judgment normal. Review of Systems Constitutional: Negative for activity change and fatigue. HENT: Negative for ear pain and facial swelling. Eyes: Negative for pain and discharge. Respiratory: Negative for chest tightness and shortness of breath. Cardiovascular: Negative for chest pain, palpitations and leg swelling. Gastrointestinal: Negative for abdominal pain, blood in stool, nausea and vomiting. Endocrine: Negative for cold intolerance and heat intolerance. Genitourinary: Negative for frequency and hematuria. Musculoskeletal: Negative for arthralgias and gait problem. Skin: Negative for color change, pallor and rash. Allergic/Immunologic: Negative for immunocompromised state. Neurological: Negative for dizziness, syncope, light-headedness and headaches. Hematological: Negative for adenopathy. Does not bruise/bleed easily. Psychiatric/Behavioral: Negative for confusion. The patient is not nervous/anxious. PAST MEDICAL HISTORY Diagnosis Date Arthritis Atrial fibrillation (HCC) Gallstones 2020 incidental finding on us, no symptoms Hypertension Mitral valve disorder PAST SURGICAL HISTORY Procedure Laterality Date JOINT REPLACEMENT HX Bilateral 2012 TKA PAST SURGICAL HISTORY OF 03/18/2021 Laparoscopic cholecystectomy with intraoperative cholangiograms. Dr. Lockett Social History Tobacco Use Smoking status: Never Smokeless tobacco: Never Vaping Use Vaping Use: Never used Substance Use Topics Alcohol use: Never Drug use: Never FAMILY HISTORY Problem Relation Age of Onset No Known Problems Mother of old age other (ruptured aortic aneurysm) Father 72 No Known Problems Sister other (pulmonary embolism) Son 45 ALLERGIES No Known Allergies CURRENT MEDICATIONS: hydroCHLOROthiazide (HYDRODIURIL, ESIDRIX) 25 mg tablet^Take 1 tablet by mouth once daily.^Disp: 90 tablet^Rfl: 3 buPROPion XL (WELLBUTRIN XL) 150 mg 24 hr tablet^Take 1 tablet by mouth once daily.^Disp: 90 tablet^Rfl: 3 potassium chloride ER (K-DUR, KLOR-CON) 20 mEq tablet^Take 1 tablet by mouth three times daily.^Disp: 270 tablet^Rfl: 3 metoprolol succinate ER (TOPROL XL) 200 mg 24 hr tablet^Take 1 tablet by mouth once daily.^Disp: 90 tablet^Rfl: 3 apixaban (ELIQUIS) 5 mg tab(s)^Take 1 tablet by mouth twice daily.^Disp: 180 tablet^Rfl: 3 cloNIDine HCl (CATAPRES) 0.1 mg tablet^Take 1 tablet by mouth twice daily.^Disp: 180 tablet^Rfl: 3 calcium carbonate (CALCIUM 500 ORAL)^Take 500 mg by mouth twice daily.^Disp: ^Rfl: Cholecalciferol, Vitamin D3, 50 mcg (2,000 unit) cap^Take by mouth once daily.^Disp: ^Rfl: gabapentin (NEURONTIN) 100 mg capsule^Take 200 mg by mouth daily at bedtime. ^Disp: ^Rfl: hydroxychloroquine 200 mg tablet^Take by mouth twice daily. ^Disp: ^Rfl: methotrexate 2.5 mg tablet^Take 2.5 mg by mouth every Wednesday. 5 tabs every Wednesday ^Disp: ^Rfl: folic acid 1 mg tablet^Take 1 mg by mouth once daily. ^Disp: ^Rfl: allopurinol (ZYLOPRIM) 300 mg tablet^Take 300 mg by mouth once daily. ^Disp: ^Rfl: Stepan Galvan DO, FACC, FACOI Clinical and Preventive Cardiology Department of Medicine and Division of Cardiology, [facility] [place] Cementertrustee of estate [facility] [place] Cementer of Congestive [facility] Cardiology Office [place] [employer] [facility] Staff Optics Engineer, Ade Rodriguez Department of Cardiovascular Medicine/Heart and Vascular [place], [facility] Clinical [place] Profressor of Medicine, [facility] Please note: This note has been produced using speech recognition software and may contain errors related to that system including charmaine, punctuation, spelling, words, gender and phrases that may be inappropriate. documented in this encounter [facility] 12-02-2021 History of Present illness Narrative Patient presents with: Follow Up HPI: Nicole Kulkarni is a 76 year old female who presents to the office today for follow up. Depression Feeling well on wellbutrin, no concerns Moved recently into a new house in [place], now has first floor master. CKD GFR 60 Afib - sees dr. galvan On eliquis, metoprolol Feels well, bp runs 120s/60s No palpitations RA - on methotrexate, sees rheum dr. del cid in [place] Also takes gabapentin Had colonoscopy on 09/03/2021 - had 4 tubular adenomas, repeat in 3-5 years REVIEW OF SYSTEMS: CONSTITUTIONAL: No fevers, chills, nightsweats, unintended weight loss HEENT: Denies frequent or severe heaches, nasal congestion/sinus symptoms, problematic allergy problems. EYES: No diplopia or blurry vision. CARDIOVASCULAR: No chest pain, dyspnea, palpitations, orthopnea, PND, ankle edema. PULM: No dyspnea, unexplained cough. GI: No dysphagia/odynophagia, problematic reflux, constipation, diarrhea, changes in stool habits, hematochezia, melena. : No new urinary complaints, including dysuria, gross hematuria or pyuria. NEURO: No new balance problems, peripheral weakness/paresthesias or numbness of concern. MUSC-SKEL: No new joint pain, swelling, or erythema. PSY: No concerns regarding depression, anxiety or panic. INTEGUMENTARY: No new skin changes (rash, new or changing mole, new growth) PAST MEDICAL HISTORY Diagnosis Date Arthritis Atrial fibrillation (HCC) Gallstones 2020 incidental finding on us, no symptoms Hypertension Mitral valve disorder PAST SURGICAL HISTORY Procedure Laterality Date JOINT REPLACEMENT HX Bilateral 2012 TKA PAST SURGICAL HISTORY OF 03/18/2021 Laparoscopic cholecystectomy with intraoperative cholangiograms. Dr. Lockett FAMILY HISTORY Problem Relation Age of Onset No Known Problems Mother of old age other (ruptured aortic aneurysm) Father 72 No Known Problems Sister other (pulmonary embolism) Son 45 Social History Tobacco Use Smoking status: Never Smoker Smokeless tobacco: Never Used Vaping Use Vaping Use: Never used Substance Use Topics Alcohol use: Never Drug use: Never ACTIVE PROBLEM LIST Atrial Fibrillation, Chronic (Hcc) Non-Rheumatic Mitral Regurgitation Essential Hypertension Rheumatoid Arthritis (Hcc) Obesity, Class II, Bmi 35-39.9 Moderate Episode of Recurrent Major Depressive Disorder (Hcc) Nonrheumatic Aortic Valve Insufficiency Chronic Anticoagulation CKD (chronic kidney disease) Stage 3, GFR 30-59 ml/min ALLERGIES No Known Allergies MEDICATIONS: hydroCHLOROthiazide (HYDRODIURIL, ESIDRIX) 25 mg tablet, Take 1 tablet by mouth once daily. potassium chloride ER (K-DUR, KLOR-CON) 20 mEq tablet, Take 1 tablet by mouth three times daily. metoprolol succinate ER (TOPROL XL) 200 mg 24 hr tablet, Take 1 tablet by mouth once daily. apixaban (ELIQUIS) 5 mg tab(s), Take 1 tablet by mouth twice daily. cloNIDine HCl (CATAPRES) 0.1 mg tablet, Take 1 tablet by mouth twice daily. allopurinol (ZYLOPRIM) 300 mg tablet, Take 300 mg by mouth once daily. calcium carbonate (CALCIUM 500 ORAL), Take 500 mg by mouth twice daily. Cholecalciferol, Vitamin D3, (VITAMIN D-3) 2,000 unit cap, Take by mouth once daily. gabapentin (NEURONTIN) 100 mg capsule, Take 200 mg by mouth daily at bedtime. hydroxychloroquine 200 mg tablet, Take by mouth twice daily. methotrexate 2.5 mg tablet, Take 2.5 mg by mouth every Wednesday. 5 tabs every Wednesday folic acid 1 mg tablet, Take 1 mg by mouth once daily. buPROPion XL (WELLBUTRIN XL) 150 mg 24 hr tablet, Take 1 tablet by mouth once daily. EXAM:BP 122/63 Pulse 72 Temp (!) 35.8 C (96.4 F) (Temporal) Resp 16 Ht 160 cm (5' 3 ) Wt 94.5 kg (208 lb 4.8 oz) SpO2 98% BMI 36.90 kg/m Last Wt 12/02/21 : 94.5 kg (208 lb 4.8 oz) 06/02/21 : 93.3 kg (205 lb 9.6 oz) 03/18/21 : 93.4 kg (206 lb) 02/26/21 : 93.4 kg (206 lb) PHYSICAL EXAM: General Appearance: Well appearing, alert, in no acute distress, well-hydrated, well nourished.. Skin: Skin color, texture, turgor normal, no suspicious rashes or lesions. Lungs: Lungs clear to auscultation. No wheezing, rhonchi, rales. Heart: IRIR without murmur, gallop, or rubs. No ectopy. Neurologic: Gait normal. ASSESSMENT/PLAN: 1. Moderate episode of recurrent major depressive disorder (HCC) - ICD9: 296.32, ICD10: F33.1 (primary diagnosis) - refill BUPROPION XL 150 MG TAB 2. Encounter for immunization - ICD9: V03.89, ICD10: Z23 - PNEUMOCOCCAL VACCINE (PREVNAR 20) 3. Stage 3a chronic kidney disease (HCC) - ICD9: 585.3, ICD10: N18.31 - stable, avoid nsaids 4. Rheumatoid arthritis, involving unspecified site, unspecified whether rheumatoid factor present (HCC) - ICD9: 714.0, ICD10: M06.9 - fu with rheum 5. Atrial fibrillation, chronic (HCC) - ICD9: 427.31, ICD10: I48.20 - fu with cardio 6. Essential hypertension - ICD9: 401.9, ICD10: I10 - good control - Continue current medication(s) - Recommended regular aerobic exercise. - Recommend home blood pressure monitoring, to bring results in on next visit - Goal of BP <130/80 - HYDROCHLOROTHIAZIDE 25 MG TABLET Harriet Perez BP CONTROLLED (<130/80) Never done DTAP,TDAP,TD(1 - Tdap) Never done ADVANCE DIRECTIVE DISCUSSION Never done SHINGRIX VACCINE(2 of 2) due on 07/18/2021 PNEUMOCOCCAL: 65+(2 - PCV) due on 08/26/2021 documented in this encounter [facility] 12-02-2021 Instructions Neli Laws MA - 12/02/2021 9:55 AM EDT [facility] LAB TEST INFORMATION [facility] LAB HOURS: Lab is open: 7:30am to 5:00pm - , 7:30am to 4:00pm on Wed and 8am -12pm on Wed. The lab is located in [facility] on the first floor. There is a registration window at the lab, available 7 am to 3 pm Wednesday. If registration is unavailable at the lab, you may register at the patient registration office near the front [facility]. SCHEDULING A LAB APPOINTMENT: Laboratory appointments are recommended.Walk ins are still accepted. Call [phone] or schedule via [employer] scheduling ticket. ROUTINE LAB ORDERS 60 days after they are entered. If your lab orders , you may be required to wait in the lab while they are reinstated FUTURE ORDERS are lab tests to be completed on the EXPECTED date. These orders 60 days after the expected date. STANDING ORDERS are recurring orders with an expiration date. The interval will indicate how often the test should be completed. CT / MRI / IVP If you have lab tests ordered for one of these radiology exams, please complete the blood work at least one day prior to the scheduled exam. PRESCRIPTION REFILL REQUESTS Request prescription refills through your [employer] account or contact your Pharmacy. My Chart Schedule My Appointment enables you to view your established primary care provider's open schedule and book an appointment online in real-time. This feature is available in internal medicine, family medicine, or pediatrics at any of our [facility] locations and main campus. documented in this encounter [facility] 11-17-2021 Miscellaneous Notes November 17, 2021 PID: [id number] Nicole IvanAmanda Kulkarni [address] [place] [address] Dear Ms. Kulkarni, We are pleased to inform you that the results of your recent breast imaging exam on 11/14/2021 are normal. Your mammogram demonstrates that you have dense breast tissue, which could hide abnormalities. Dense breast tissue, in and of itself, is a relatively common condition. Therefore, this information is not provided to cause undue concern; rather, it is to raise your awareness and promote discussion with your health care provider regarding the presence of dense breast tissue in addition to other risk factors. Early detection of cancer is very important. We also understand recommendations regarding breast cancer screening are controversial. Please discuss with your primary care provider which strategy is best for you and whether a mammogram is right for you. Your imaging studies and report will be kept on file at [facility] as part of your permanent medical record and are available for your continuing care. Thank you for allowing us to help in meeting your health care needs. Sincerely, Dr. Gutierrez Interpreting Radiologist [facility] (Normal over 40) documented in this encounter [facility] 11-14-2021 Miscellaneous Notes Called PT she will set up Appt for Echo, and Dr Galvan. Pended refill Eliquis 5mg, toprol xl, Potassium 20 mg [facility] 05/19/21 [facility] 05/27/21 documented in this encounter [facility] 11-05-2021 History of Present illness Narrative POPULATION HEALTH NAVIGATION OUTREACH Action/FYI Spoke with patient who asked to send Atavisthart message due to her being busy at the moment Mychart message sent Pt identified by name and : YES, via phone Outreach Outcome/Action Spoke to patient or caregiver: Patient declined MyChart message sent Advance Directives sent Did you use a PCP flex slot to schedule this appointment? No Reason for Outreach Care Gap or Scheduling/Wellness visits Payer: Payor: MARIA DEL [employer] BLUE [employer]IELD / Plan: [employer] ACCESS / Product Type: PPO / Care Gap Reviewed:: Breast Cancer screening Controlling Blood Pressure Reminder: Reminder note to check Health Maintenance for items below Health Maintenance items due: BP CONTROLLED (<130/80) Never done ADVANCE DIRECTIVE DISCUSSION Never done SHINGRIX VACCINE(2 of 2) due on 07/18/2021 PNEUMOCOCCAL: 65+(2 - PCV) due on 08/26/2021 MAMMOGRAM due on 09/10/2021 Message Sent to Practice: No Navigation Signature: Randa Pinedo Population Health Navigator November 05, 2021 12:20 PM documented in this encounter [facility] 10-22-2021 Miscellaneous Notes Sent patient a PicBadgeshart message with message below. Lin Mensah LPN Left message for patient to call office for lab results. Lin Mensah LPN Labs all stable, kidneys and liver at her baseline. No signs of anemia. Blood sugar in the pre-diabetic range but similar to her previous levels. Just keep working on diet. Labs placed on Dr. Balbuena desk for review. Return for scanning. Lin Mensah LPN documented in this encounter [facility] 09-10-2021 Miscellaneous Notes Reviewed. Madhuri Apodaca PA-C Received: Colonoscopy & Pathology report. From: [facility]. Dated: 09/03/21 HM was updated. Placed on PCP inbox for review. Endoscopic DX: 1- Colon plolyp 2- Diverticulosis 3- Hemorrhoids Diagnosis: (1) Ascending colon polyps X2: -Sessile serrated adenomas (2) Cecal Polyp: -Tubular adenoma -No high-grade dysplasia or malignancy (3) Transverse colon polyp bx: -Tubular adenoma -No high-grade dysplasia or malignancy documented in this encounter [facility] 08-29-2021 Miscellaneous Notes Noted. Eye exam from 08/28/21. Placed on Dr. Perez's desk for review. Return for scanning. Lin Mensah LPN documented in this encounter [facility] 07-24-2021 Miscellaneous Notes Received stop medication request form from [facility]. Reviewed and signed by provider. Faxed successfully. documented in this encounter [facility] documented as of this encounter (statuses as of 07/24/2021) [facility] History of Past illness Narrative* Problem Noted Date Resolved Date Nausea & vomiting 01/28/2019 08/26/2020 documented as of this encounter (statuses as of 08/21/2021) [place] [id number] History of Past illness Narrative* Problem Noted Date Resolved Date Nausea & vomiting 01/28/2019 08/26/2020 documented as of this encounter (statuses as of 09/02/2021) [address] History of Past illness Narrative* Problem Noted Date Resolved Date Nausea & vomiting 01/28/2019 08/26/2020 documented as of this encounter (statuses as of 09/10/2021) [address] History of Past illness Narrative* Problem Noted Date Resolved Date Nausea & vomiting 01/28/2019 08/26/2020 documented as of this encounter (statuses as of 10/20/2021) [address] History of Past illness Narrative* Problem Noted Date Resolved Date Nausea & vomiting 01/28/2019 08/26/2020 documented as of this encounter (statuses as of 10/22/2021) [address] History of Past illness Narrative* Problem Noted Date Resolved Date Nausea & vomiting 01/28/2019 08/26/2020 documented as of this encounter (statuses as of 11/05/2021) [address] History of Past illness Narrative* Problem Noted Date Resolved Date Nausea & vomiting 01/28/2019 08/26/2020 documented as of this encounter (statuses as of 11/10/2021) [address] History of Past illness Narrative* Problem Noted Date Resolved Date Nausea & vomiting 01/28/2019 08/26/2020 documented as of this encounter (statuses as of 11/15/2021) [address] History of Past illness Narrative* Problem Noted Date Resolved Date Nausea & vomiting 01/28/2019 08/26/2020 documented as of this encounter (statuses as of 11/15/2021) [address] History of Past illness Narrative* Problem Noted Date Resolved Date Nausea & vomiting 01/28/2019 08/26/2020 documented as of this encounter (statuses as of 11/17/2021) [address] History of Past illness Narrative* Problem Noted Date Resolved Date Nausea & vomiting 01/28/2019 08/26/2020 documented as of this encounter (statuses as of 11/19/2021) [address] History of Past illness Narrative* Problem Noted Date Resolved Date Nausea & vomiting 01/28/2019 08/26/2020 documented as of this encounter (statuses as of 12/02/2021) [address] History of Past illness Narrative* Problem Noted Date Resolved Date Nausea & vomiting 01/28/2019 08/26/2020 documented as of this encounter (statuses as of 12/25/2021) [address] History of Past illness Narrative* Problem Noted Date Resolved Date Nausea & vomiting 01/28/2019 08/26/2020 documented as of this encounter (statuses as of 01/01/2022) [address] History of Past illness Narrative* Problem Noted Date Resolved Date Nausea & vomiting 01/28/2019 08/26/2020 documented as of this encounter (statuses as of 01/26/2022) [address] History of Past illness Narrative* Problem Noted Date Resolved Date Nausea & vomiting 01/28/2019 08/26/2020 documented as of this encounter (statuses as of 02/05/2022) [address] History of Past illness Narrative* Problem Noted Date Resolved Date Nausea & vomiting 01/28/2019 08/26/2020 documented as of this encounter (statuses as of 02/19/2022) [address] History of Past illness Narrative* Problem Noted Date Resolved Date Nausea & vomiting 01/28/2019 08/26/2020 documented as of this encounter (statuses as of 05/18/2022) [address] History of Past illness Narrative* Problem Noted Date Resolved Date Nausea & vomiting 01/28/2019 08/26/2020 documented as of this encounter (statuses as of 05/26/2022) [address] History of Past illness Narrative* Problem Noted Date Resolved Date Nausea & vomiting 01/28/2019 08/26/2020 documented as of this encounter (statuses as of 06/08/2022) [address] History of Past illness Narrative* Problem Noted Date Resolved Date Nausea & vomiting 01/28/2019 08/26/2020 documented as of this encounter (statuses as of 06/16/2022) [address] History of Past illness Narrative* Problem Noted Date Resolved Date Nausea & vomiting 01/28/2019 08/26/2020 documented as of this encounter (statuses as of 06/26/2022) [address] History of Past illness Narrative* Problem Noted Date Resolved Date Nausea & vomiting 01/28/2019 08/26/2020 documented as of this encounter (statuses as of 08/13/2022) [address] History of Past illness Narrative* Problem Noted Date Resolved Date Nausea & vomiting 01/28/2019 08/26/2020 documented as of this encounter (statuses as of 10/21/2022) [address] History of Past illness Narrative* Problem Noted Date Resolved Date Nausea & vomiting 01/28/2019 08/26/2020 documented as of this encounter (statuses as of 11/06/2022) [address] History of Past illness Narrative* Problem Noted Date Diagnosed Date Resolved Date Nausea & vomiting 01/28/2019 08/26/2020 documented as of this encounter (statuses as of 12/02/2022) [address] History of Past illness Narrative* Problem Noted Date Diagnosed Date Resolved Date Nausea & vomiting 01/28/2019 08/26/2020 documented as of this encounter (statuses as of 12/23/2022) [address] History of Past illness Narrative* Problem Noted Date Diagnosed Date Resolved Date Nausea & vomiting 01/28/2019 08/26/2020 documented as of this encounter (statuses as of 12/28/2022) [address] History of Past illness Narrative* Problem Noted Date Diagnosed Date Resolved Date Nausea & vomiting 01/28/2019 08/26/2020 documented as of this encounter (statuses as of 03/07/2023) [address] History of Past illness Narrative* Problem Noted Date Diagnosed Date Resolved Date Nausea & vomiting 01/28/2019 08/26/2020 documented as of this encounter (statuses as of 06/17/2023) [address] History of Past illness Narrative* Problem Noted Date Diagnosed Date Resolved Date Nausea & vomiting 01/28/2019 08/26/2020 documented as of this encounter (statuses as of 06/18/2023) [facility] History of Past illness Narrative* Problem Noted Date Diagnosed Date Resolved Date Nausea & vomiting 01/28/2019 08/26/2020 documented as of this encounter (statuses as of 06/23/2023) [facility] History of Past illness Narrative* Problem Noted Date Diagnosed Date Resolved Date Nausea & vomiting 01/28/2019 08/26/2020 documented as of this encounter (statuses as of 06/30/2023) [facility] note* Diagnosis Encounter for screening mammogram for breast cancer documented in this encounter [facility] note* Diagnosis Encounter for screening mammogram for breast cancer documented in this encounter [facility] note* Diagnosis Essential hypertension- Primary Unspecified essential hypertension Atrial fibrillation, chronic (HCC) Atrial fibrillation documented in this encounter [facility] note* Diagnosis Moderate episode of recurrent major depressive disorder (HCC)- Primary Encounter for immunization Need for other specified prophylactic vaccination against single bacterial disease Stage 3a chronic kidney disease (HCC) Rheumatoid arthritis, involving unspecified site, unspecified whether rheumatoid factor present (HCC) Atrial fibrillation, chronic (HCC) Atrial fibrillation Essential hypertension Unspecified essential hypertension documented in this encounter [facility] note* Diagnosis Atrial fibrillation, chronic (HCC)- Primary Atrial fibrillation Essential hypertension Unspecified essential hypertension Non-rheumatic mitral regurgitation Mitral valve disorders Nonrheumatic aortic valve insufficiency Aortic valve disorders Chronic anticoagulation Long-term (current) use of anticoagulants documented in this encounter [facility] note* Diagnosis Essential hypertension- Primary Unspecified essential hypertension documented in this encounter [facility] note* Diagnosis Grief reaction- Primary Adjustment disorder with depressed mood Moderate episode of recurrent major depressive disorder (HCC) Rheumatoid arthritis, involving unspecified site, unspecified whether rheumatoid factor present (HCC) Stage 3a chronic kidney disease (HCC) Atrial fibrillation, chronic (HCC) Atrial fibrillation Essential hypertension Unspecified essential hypertension Obesity, Class I, BMI 30-34.9 Obesity, unspecified Screening for lipid disorders documented in this encounter [facility] note* Diagnosis Hypokalemia- Primary Hypopotassemia Essential hypertension Unspecified essential hypertension Atrial fibrillation, chronic (HCC) Atrial fibrillation documented in this encounter [facility] note* Diagnosis Anxiety with depression- Primary Encounter for immunization Need for other specified prophylactic vaccination against single bacterial disease Stage 3a chronic kidney disease (HCC) [facility] Diagnosis Essential hypertension Unspecified essential hypertension Atrial fibrillation, chronic (HCC) Atrial fibrillation [facility] Diagnosis Essential hypertension Unspecified essential hypertension documented in this encounter [facility] note* Diagnosis Moderate episode of recurrent major depressive disorder (HCC)- Primary Asymptomatic postmenopausal status Disorder of bone and cartilage Disorder of bone and cartilage, unspecified Osteopenia, senile Disorder of bone and cartilage, unspecified Rheumatoid arthritis, involving unspecified site, unspecified whether rheumatoid factor present (HCC) Atrial fibrillation, chronic (HCC) Atrial fibrillation Stage 3a chronic kidney disease (HCC) Hyperglycemia Other abnormal glucose Screening for lipid disorders Vitamin D deficiency Unspecified vitamin D deficiency documented in this encounter [facility] for referral (narrative)* Diagnostic Procedure Only (Routine) - Pending Review Specialty Diagnoses / Procedures Referred By Mamta t Referred To Contact [facility] Diagnoses Encounter for screening mammogram for breast cancer Procedures SPIKE SCREENING SCREENING MAMMOGRAPHY BI 2-VIEW BREAST INC Harriet Jara MD [address] [place] [address] [facility] [address] [place] [address] Referral ID Status Reason Start Date Expiration Date Visits Requested Visits Authorized [id number] Pending Review Auto-Generat ed Referral 10/15/2021 11/14/2022 1 1 [facility] for referral (narrative)* Diagnostic Procedure Only (Routine) - Closed Specialty Diagnoses / Procedures Referred By Contac t Referred To Contact [facility] Diagnoses Encounter for screening mammogram for breast cancer Procedures SPIKE SCREENING SCREENING MAMMOGRAPHY BI 2-VIEW BREAST INC Harriet Jara MD [address] [place] [address] [facility] [address] [place] [address] Referral ID Status Reason Start Date Expiration Date V isits Requested Visits Authorized [id number] Closed Auto-Generate d Referral 10/15/2021 11/14/2022 1 1 [facility] for visit Narrative* Diagnostic Procedure Only (Routine) - Closed Specialty Diagnoses / Procedures Referred By Contac t Referred To Contact [facility] Diagnoses Encounter for screening mammogram for breast cancer Procedures SPIKE SCREENING SCREENING MAMMOGRAPHY BI 2-VIEW BREAST INC Harriet Jara MD [address] [place] [address] [facility] [address] [place] [address] Referral ID Status Reason Start Date Expiration Date V isits Requested Visits Authorized [id number] Closed Auto-Generate d Referral 10/15/2021 11/14/2022 1 1 [facility] Summary Purpose Family History No Family History Records FoundNo Family History Records FoundNo Family History Records Found Advance Directives Documents on File Type Date Recorded 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 Advance Directive(s) Advance Directive(s) 03/18/2021 8:05 AM Advance Directive(s) 02/22/2021 1:25 AM Documents on File Type Date Recorded 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 Advance Directive(s) Advance Directive(s) 03/18/2021 8:05 AM Advance Directive(s) 02/22/2021 1:25 AM Additional Source Comments INFORMATION SOURCE (unrecogn ized section and content) DATE CREATED AUTHOR AUTHOR'S ORGANIZ ATION 02/18/2023 [facility] DATE CREATED AUTHOR AUTHOR'S ORGANIZ ATION 06/30/2023 [facility] Source Comments (unrecognize d section and content) In the event this informatio n is protected by the Federal Confidentiality of Alcohol and Drug Abuse Patient Records regulations: The Federal rules restrict any use of the information to criminally investigate or prosecute any alcohol or drug abuse patient.[facility] event this information is protected by the Federal Confidentiality of Alcohol and Drug Abuse Patient Records regulations: The Federal rules restrict any use of the information to criminally investigate or prosecute any alcohol or drug abuse patient.[facility] the event this information is protected by the Federal Confidentiality of Alcohol and Drug Abuse Patient Records regulations: The Federal rules restrict any use of the information to criminally investigate or prosecute any alcohol or drug abuse patient.[facility] the event this information is protected by the Federal Confidentiality of Alcohol and Drug Abuse Patient Records regulations: The Federal rules restrict any use of the information to criminally investigate or prosecute any alcohol or drug abuse patient.[facility] the event this information is protected by the Federal Confidentiality of Alcohol and Drug Abuse Patient Records regulations: The Federal rules restrict any use of the information to criminally investigate or prosecute any alcohol or drug abuse patient.[facility] the event this information is protected by the Federal Confidentiality of Alcohol and Drug Abuse Patient Records regulations: The Federal rules restrict any use of the information to criminally investigate or prosecute any alcohol or drug abuse patient.[facility] HospitalIn the event this information is protected by the Federal Confidentiality of Alcohol and Drug Abuse Patient Records regulations: The Federal rules restrict any use of the information to criminally investigate or prosecute any alcohol or drug abuse patient.[facility] HospitalIn the event this information is protected by the Federal Confidentiality of Alcohol and Drug Abuse Patient Records regulations: The Federal rules restrict any use of the information to criminally investigate or prosecute any alcohol or drug abuse patient.[facility] HospitalIn the event this information is protected by the Federal Confidentiality of Alcohol and Drug Abuse Patient Records regulations: The Federal rules restrict any use of the information to criminally investigate or prosecute any alcohol or drug abuse patient.[facility] HospitalIn the event this information is protected by the Federal Confidentiality of Alcohol and Drug Abuse Patient Records regulations: The Federal rules restrict any use of the information to criminally investigate or prosecute any alcohol or drug abuse patient.[facility] HospitalIn the event this information is protected by the Federal Confidentiality of Alcohol and Drug Abuse Patient Records regulations: The Federal rules restrict any use of the information to criminally investigate or prosecute any alcohol or drug abuse patient.[facility] HospitalIn the event this information is protected by the Federal Confidentiality of Alcohol and Drug Abuse Patient Records regulations: The Federal rules restrict any use of the information to criminally investigate or prosecute any alcohol or drug abuse patient.[facility] HospitalIn the event this information is protected by the Federal Confidentiality of Alcohol and Drug Abuse Patient Records regulations: The Federal rules restrict any use of the information to criminally investigate or prosecute any alcohol or drug abuse patient.[facility] HospitalIn the event this information is protected by the Federal Confidentiality of Alcohol and Drug Abuse Patient Records regulations: The Federal rules restrict any use of the information to criminally investigate or prosecute any alcohol or drug abuse patient.[facility] HospitalIn the event this information is protected by the Federal Confidentiality of Alcohol and Drug Abuse Patient Records regulations: The Federal rules restrict any use of the information to criminally investigate or prosecute any alcohol or drug abuse patient.[facility] HospitalIn the event this information is protected by the Federal Confidentiality of Alcohol and Drug Abuse Patient Records regulations: The Federal rules restrict any use of the information to criminally investigate or prosecute any alcohol or drug abuse patient.[facility] HospitalIn the event this information is protected by the Federal Confidentiality of Alcohol and Drug Abuse Patient Records regulations: The Federal rules restrict any use of the information to criminally investigate or prosecute any alcohol or drug abuse patient.[facility] HospitalIn the event this information is protected by the Federal Confidentiality of Alcohol and Drug Abuse Patient Records regulations: The Federal rules restrict any use of the information to criminally investigate or prosecute any alcohol or drug abuse patient.[facility] HospitalIn the event this information is protected by the Federal Confidentiality of Alcohol and Drug Abuse Patient Records regulations: The Federal rules restrict any use of the information to criminally investigate or prosecute any alcohol or drug abuse patient.[facility] HospitalIn the event this information is protected by the Federal Confidentiality of Alcohol and Drug Abuse Patient Records regulations: The Federal rules restrict any use of the information to criminally investigate or prosecute any alcohol or drug abuse patient.[facility] HospitalIn the event this information is protected by the Federal Confidentiality of Alcohol and Drug Abuse Patient Records regulations: The Federal rules restrict any use of the information to criminally investigate or prosecute any alcohol or drug abuse patient.[facility] HospitalIn the event this information is protected by the Federal Confidentiality of Alcohol and Drug Abuse Patient Records regulations: The Federal rules restrict any use of the information to criminally investigate or prosecute any alcohol or drug abuse patient.[facility] HospitalIn the event this information is protected by the Federal Confidentiality of Alcohol and Drug Abuse Patient Records regulations: The Federal rules restrict any use of the information to criminally investigate or prosecute any alcohol or drug abuse patient.[facility] HospitalIn the event this information is protected by the Federal Confidentiality of Alcohol and Drug Abuse Patient Records regulations: The Federal rules restrict any use of the information to criminally investigate or prosecute any alcohol or drug abuse patient.[facility] HospitalIn the event this information is protected by the Federal Confidentiality of Alcohol and Drug Abuse Patient Records regulations: The Federal rules restrict any use of the information to criminally investigate or prosecute any alcohol or drug abuse patient.[facility] HospitalIn the event this information is protected by the Federal Confidentiality of Alcohol and Drug Abuse Patient Records regulations: The Federal rules restrict any use of the information to criminally investigate or prosecute any alcohol or drug abuse patient.[facility] HospitalIn the event this information is protected by the Federal Confidentiality of Alcohol and Drug Abuse Patient Records regulations: The Federal rules restrict any use of the information to criminally investigate or prosecute any alcohol or drug abuse patient.[facility] HospitalIn the event this information is protected by the Federal Confidentiality of Alcohol and Drug Abuse Patient Records regulations: The Federal rules restrict any use of the information to criminally investigate or prosecute any alcohol or drug abuse patient.[facility] HospitalIn the event this information is protected by the Federal Confidentiality of Alcohol and Drug Abuse Patient Records regulations: The Federal rules restrict any use of the information to criminally investigate or prosecute any alcohol or drug abuse patient.[facility] HospitalIn the event this information is protected by the Federal Confidentiality of Alcohol and Drug Abuse Patient Records regulations: The Federal rules restrict any use of the information to criminally investigate or prosecute any alcohol or drug abuse patient.[facility] HospitalIn the event this information is protected by the Federal Confidentiality of Alcohol and Drug Abuse Patient Records regulations: The Federal rules restrict any use of the information to criminally investigate or prosecute any alcohol or drug abuse patient.[facility] HospitalIn the event this information is protected by the Federal Confidentiality of Alcohol and Drug Abuse Patient Records regulations: The Federal rules restrict any use of the information to criminally investigate or prosecute any alcohol or drug abuse patient.[facility] HospitalIn the event this information is protected by the Federal Confidentiality of Alcohol and Drug Abuse Patient Records regulations: The Federal rules restrict any use of the information to criminally investigate or prosecute any alcohol or drug abuse patient.[facility] HospitalIn the event this information is protected by the Federal Confidentiality of Alcohol and Drug Abuse Patient Records regulations: The Federal rules restrict any use of the information to criminally investigate or prosecute any alcohol or drug abuse patient.[facility] HospitalIn the event this information is protected by the Federal Confidentiality of Alcohol and Drug Abuse Patient Records regulations: The Federal rules restrict any use of the information to criminally investigate or prosecute any alcohol or drug abuse patient.[facility] Reason for Visit (unrecogniz ed section and content) Reason Comments Received Outside Medical Records [facility] Reason Comments Colonoscopy Report Digestive Disease Reason Comments Results [facility] 09/18/21 Reason Onset Date Comments Population Health Navigation Outreach 11/05/2021 [place] [facility] Reason Onset Date Comments Refill Request 11/14/2021 Reason Comments Follow Up Reason Comments Cardiology Follow Up Reason Comments Results [facility] Reason Comments Received Outside Medical Records [facility] Reason Comments D/C Summary Events Reason Comments Results Reason Comments Patient Update Reason Comments Refill Request Reason Comments 6 Month Exam Reason Onset Date Comments Population Health Navigation Outreach 10/21/2022 [place] [facility] Reason Comments Blood work results CBC with Diff [facility] Reason Onset Date Comments Refill Request 12/10/2022 Reason Onset Date Comments Refill Request 12/22/2022 Reason Onset Date Comments Refill Request 06/17/2023 Care Teams (unrecognized sec tion and content) General Repairer Relationship Specialty Start Date End Date Harriet Perez MD [address] [place] [address] PCP - General Family Practice 08/27/20 General Repairer Relationship Specialty Start Date End Date Harriet Perez MD [address] [place] [address] PCP - General Family Practice 08/27/20 General Repairer Relationship Specialty Start Date End Date Harriet Perez MD [address] [place] [address] PCP - General Family Practice 08/27/20 General Repairer Relationship Specialty Start Date End Date Harriet Perez MD [address] [place] [address] PCP - General Family Practice 08/27/20 General Repairer Relationship Specialty Start Date End Date Harriet Perez MD [address] [place] [address] PCP - General Family Practice 08/27/20 General Repairer Relationship Specialty Start Date End Date Harriet Perez MD [address] [place] [address] PCP - General Family Practice 08/27/20 General Repairer Relationship Specialty Start Date End Date Harriet Perez MD [address] [place] [address] PCP - General Family Practice 08/27/20 General Repairer Relationship Specialty Start Date End Date Harriet Perez MD [address] [place] [address] PCP - General Family Practice 08/27/20 General Repairer Relationship Specialty Start Date End Date Harriet Perez MD [address] [place] [address] PCP - General Family Practice 08/27/20 General Repairer Relationship Specialty Start Date End Date Harriet Perez MD [address] [place] [address] PCP - General Family Practice 08/27/20 General Repairer Relationship Specialty Start Date End Date Harriet Perez MD [address] [place] [address] PCP - General Family Medicine 08/27/20 General Repairer Relationship Specialty Start Date End Date Harriet Perez MD [address] [place] [address] PCP - General Family Medicine 08/27/20 General Repairer Relationship Specialty Start Date End Date Harriet Perez MD [address] [place] [address] PCP - General Family Medicine 08/27/20 General Repairer Relationship Specialty Start Date End Date Harriet Perez MD [address] [place] [address] PCP - General Family Medicine 08/27/20 General Repairer Relationship Specialty Start Date End Date Harriet Perez MD [address] [place] [address] PCP - General Family Medicine 08/27/20 General Repairer Relationship Specialty Start Date End Date Harriet Perez MD [address] [place] [address] PCP - General Family Medicine 08/27/20 General Repairer Relationship Specialty Start Date End Date Harriet Perez MD [address] [place] [address] PCP - General Family Medicine 08/27/20 General Repairer Relationship Specialty Start Date End Date Harriet Perez MD [address] [place] [address] PCP - General Family Medicine 08/27/20 General Repairer Relationship Specialty Start Date End Date Harriet Perez MD [address] [place] [address] PCP - General Family Medicine 08/27/20 General Repairer Relationship Specialty Start Date End Date Harriet Perez MD [address] [place] [address] PCP - General Family Medicine 08/27/20 General Repairer Relationship Specialty Start Date End Date Harriet Perez MD [address] [place] [address] PCP - General Family Medicine 08/27/20 General Repairer Relationship Specialty Start Date End Date Harriet Perez MD [address] [place] [address] PCP - General Family Medicine 08/27/20 General Repairer Relationship Specialty Start Date End Date Harriet Perez MD [address] [place] [address] PCP - General Family Medicine 08/27/20 General Repairer Relationship Specialty Start Date End Date Harriet Perez MD [address] [place] [address] PCP - General Family Medicine 08/27/20 FOR RECORDS PERTAINING TO PATIENTS WHO ARE OR HAVE BEEN ENROLLED IN A CHEMICAL DEPENDENCY/SUBSTANCEABUSE PROGRAM, SOME INFORMATION MAY BE OMITTED. This clinical summary was aggregated from multiple sources. Caution should be exercised in using it in the provision of clinical care. This summary normalizes information from multiple sources, and as a consequence, information in this document may materially change the coding, format and clinical context of patient data. In addition, data may be omitted in some cases. CLINICAL DECISIONS SHOULD BE BASED ON THE PRIMARY CLINICAL RECORDS. [employer] provides no warranty or guarantee of the accuracy or completeness of information in this document.
[2023-07-02 12:23] LABS: Absolute Lymphocyte Count 1.09 X10^3/uL (0.83-4.51); Absolute Neutrophil Count 4.3 X10^3/uL (2.0-7.7); Basophil# 0.04 X10^3/uL; Basophil% 0.6 % (0-1); Eosinophil# 0.28 X10^3/uL; Eosinophils% 4.3 % (0-5); Hematocrit 37.1 % (37-47); Hemoglobin 11.8 g/dL (12.0-15.0); Lymphocyte # 1.09 X10^3/ul (0.83-4.51); Lymphocyte % 16.7 % (19-41); Mean Corp Hgb Conc 31.8 g/dL (32-36); Mean Corpuscular Hgb 32.2 pg (27.0-32.0); Mean Corpuscular Volume 101.4 fL (81-99); Mean Platelet Vol. 9.3 fl (6.2-12.0); Monocyte# 0.77 X10^3/uL; Monocyte% 11.8 % (0-10); NRBC Flagged by Analyzer 0 % (0-5); Neutrophil # 4.32 X10^3/uL (2.7-7.7); Neutrophil % 66.1 % (47-70); Platelet Count 225 K/mm3 (150-450); RBC Distribution Width CV 13.7 % (11.6-14.6); RBC Distribution Width SD 51.1 fl (35.1-43.9); Red Blood Count 3.66 M/mm3 (4.2-5.4); White Blood Count 6.5 K/mm3 (4.4-11.0)
[2023-07-02 12:47] LABS: AST(SGOT) 20 U/L (15-37); Alanine Aminotransfer ALT/SGPT 22 U/L (13-56); Albumin, Serum 3.3 g/dL (3.2-5.0); Alkaline Phosphatase 58 U/L (45-117); Anion Gap 3 (5-15); BUN 18 mg/dL (7-18); BUN/Creat Ratio 16.7 RATIO (10-20); Calcium,Total 9.2 mg/dL (8.5-10.1); Chloride 111 mmol/L (98-107); Creatinine, Serum 1.08 mg/dL (0.55-1.02); EST Glomerular Filtration Rate 52 mL/min (>60); Est Glom Filt Rate - Afr Amer 63 mL/min (>60); Globulin 3.4 g/dL (2.2-4.2); Glucose 99 mg/dL (74-106); Potassium 4.1 mmol/L (3.5-5.1); Protein, Total 6.7 g/dL (6.4-8.2); Sodium Level 143 mmol/L (136-145)
== END | disposition home or self-care (01) ==
LOC: MTLAB 09:37
PROVIDERS: PCP Family Medicine Sports Medicine; Referring Provider Internal Medicine Rheumatology; Visit Provider Internal Medicine Rheumatology
DX: M06.4 Inflammatory polyarthropathy (principal); M79.7 Fibromyalgia; Z79.899 Other long term (current) drug therapy
CPT/HCPCS: 36415; 80053; 85025

== ENCOUNTER 2024-01-13 13:09 | Emergency (ER) | payer MEDICARE, SELFPAY ==
[2024-01-13 13:10] VITALS: BP 114/76; PULSE 86; RESP 16; TEMP 36; O2SAT 98; BMI 36.3
--- NOTE | 2024-01-13 13:59 | ED.RN ---
initally waiting on dr strickland to see pt in ed per her request. she just saw confirming with floor to send patient to inpatient room
[2024-01-13 14:01] LABS: Absolute Lymphocyte Count 0.93 X10^3/uL (0.83-4.51); Basophil# 0.03 X10^3/uL; Basophil% 0.3 % (0-1); Hematocrit 38.6 % (37-47); Hemoglobin 12.3 g/dL (12.0-15.0); Lymphocyte # 0.93 X10^3/ul (0.83-4.51); Lymphocyte % 9.2 % (19-41); Mean Corp Hgb Conc 31.9 g/dL (32-36); Mean Corpuscular Hgb 31.3 pg (27.0-32.0); Mean Corpuscular Volume 98.2 fL (81-99); Mean Platelet Vol. 9.6 fl (6.2-12.0); Monocyte# 1.07 X10^3/uL; Monocyte% 10.6 % (0-10); NRBC Flagged by Analyzer 0.3 % (0-5); Neutrophil # 8.02 X10^3/uL (2.7-7.7); Platelet Count 305 K/mm3 (150-450); RBC Distribution Width CV 14.1 % (11.6-14.6); RBC Distribution Width SD 50.9 fl (35.1-43.9); Red Blood Count 3.93 M/mm3 (4.2-5.4); White Blood Count 10.1 K/mm3 (4.4-11.0)
[2024-01-13] MEDS: 0.9% Normal Saline (1000mL) 1,000 ML 1000 ML IV ×2 (14:08→15:25)
[2024-01-13 14:13] LABS: Anion Gap 13 (5-15); BUN 48 mg/dL (7-18); BUN/Creat Ratio 27.6 RATIO (10-20); Calcium,Total 9.2 mg/dL (8.5-10.1); Chloride 103 mmol/L (98-107); Creatinine, Serum 1.74 mg/dL (0.55-1.02); EST Glomerular Filtration Rate 30 mL/min (>60); Est Glom Filt Rate - Afr Amer 37 mL/min (>60); Glucose 97 mg/dL (74-106); Potassium 5.3 mmol/L (3.5-5.1); Sodium Level 135 mmol/L (136-145)
[2024-01-13 15:45] VITALS: BP 112/82; PULSE 76; RESP 16; O2SAT 99
--- NOTE | 2024-01-13 15:50 | EDS_ITS ---
HPI History of Present Illness Chief Complaint: Cold Sx Detail of Chief Complaint: Concern for COVID with GI symptoms Informant: patient Onset/Context/Timing Onset: Days (Started 6 days ago) Context: Sudden Onset Timing: Continuous and Waxes and wanes Quality: Not applicable Location: [facility] family [facility] Current Severity: Mild Maximum Severity: Moderate Worsened by: Nothing specific Relieved by: Nothing Associated Symptoms Associated Symptoms: Subjective fever with nausea vomiting diarrhea Narrative Narrative: Patient is a 78-year-old female on Eliquis and methotrexate who presents with viral-like symptoms. She is concerned she has COVID. She denies documented fever. She had subjective fever with some intermittent chills. She denies head ache, visual, ocular auditory symptoms. She denies nasal drainage. She denies sore throat. She denies cough or shortness of breath. She does endorse abdominal discomfort with nausea and predominately diarrhea. She states she has no appetite. She feels weak. She has not noted a rash. She has not noted swelling of her joints. Informed patient that COVID test is not indicated. Furthermore, patient is outside the window for Paxlovid treatment and she is on anticoagulant. After explaining her the cost of the test and that there is no treatment she agrees 1 does not needed. Prior similar symptoms: Yes (When diagnosed with COVID) Recent Illness/Hospitalization: No PFSH PFSH Medical History Rheumatoid arthritis CKD (chronic kidney disease), stage III Wears hearing aid Post-menopausal Depression Arthritis Cardiology follow-up encounter History of atrial fibrillation Osteoporosis Kidney stones Hypertension Home Medications ?Medication ?Instructions ?Recorded ?Last Taken ?Type apixaban 5 mg tablet (Eliquis) 5 mg PO BID blood thinner 01/22/22 02/11/22 History bupropion HCl 150 mg 24 hr tablet, 150 mg PO DAILY mood 01/22/22 01/22/22 History extended release clonidine HCl 0.1 mg tablet 0.1 mg PO BID bp 01/22/22 02/12/22 07:00 History gabapentin 100 mg capsule 200 mg PO QHS nerve pain 01/22/22 01/21/22 History leucovorin calcium 15 mg tablet 15 mg PO MO supplement 01/22/22 01/19/22 History methotrexate sodium 2.5 mg tablet 12.5 mg PO QWEEK RA 01/22/22 01/18/22 History metoprolol succinate 200 mg 200 mg PO DAILY bp 01/22/22 02/12/22 07:00 History tablet,extended release 24 hr potassium chloride 20 mEq 20 meq PO DAILY supplement 01/22/22 01/22/22 History tablet,extended release(part/cryst) (Klor-Con M) tramadol 50 mg tablet 50 mg PO BID PRN Pain 01/22/22 Unknown History calcium 500 mg tablet 1,000 mg PO DAILY 02/11/22 Unknown History cholecalciferol (vitamin D3) 50 50 mcg PO DAILY 02/11/22 Unknown History mcg (2,000 unit) capsule (Vitamin D3) oxycodone 5 mg capsule 5 mg PO Q4H PRN pain 7 days #42 02/13/22 Unknown Rx caps Allergy/AdvReac Type Severity Reaction Status Date / Time No Known Allergies Allergy Verified 02/12/22 12:30 Surgical History History of ankle surgery Total knee replacement status History of cholecystectomy Social History Smoking Status: Never smoker ROS ROS ED Constitutional Constitutional ED: Reports chills, fever(s) and subjective; Denies sweats or weight loss Eyes Eyes: Denies blurry vision or change in vision ENT ENT ED: Denies ear pain, rhinorrhea or sore throat Cardiovascular Cardiovascular: Denies chest pain or palpitations Respiratory/Chest Respiratory/Chest: Denies cough, dyspnea or dyspnea on exertion Gastrointestinal Gastrointestinal: Reports abdominal pain, diarrhea, nausea and vomiting; Denies constipation or melena Genitourinary Genitourinary ED: Reports other Details: Decreased urine output. ; Denies dysuria, hematuria or urinary frequency Musculoskeletal Musculoskeletal: Denies arthralgias or myalgias Integumentary Denies rash Neurologic Neurologic: Reports weakness; Denies headache(s) or paresthesias Endocrine Endocrinology: Denies cold intolerance or heat intolerance Hematologic/Lymphatic Hematologic/Lymphatic: Reports systems reviewed and no addt'l complaints, except as documented EXAM Physical Exam Const Vital Signs: 01/13/24 13:10 01/13/24 13:20 Temperature 96.8 F L Temperature Source Temporal Pulse Rate 86 Respiratory Rate 16 Respiratory Effort Normal Non-Labored Blood Pressure 114/76 Blood Pressure Mean 88 Pulse Ox 98 Oxygen Delivery Method Room Air Positive well nourished and well developed Constitutional Narrative: Patient without appear well. She is not appear in distress. General Appearance ED: well developed; Negative for cyanotic, diaphoretic, NAD or pallor HEENT Reports dry mucous membranes HEENT Narrative: Head is atraumatic no cephalic. Ears normal. Nares patent no discharge. Posterior pharynx is normal. Mouth ED: Yes dry mucous membranes Mouth: dry mucous membranes Eyes PERRL and EOMs intact bilaterally General Eye ED: Negative for pale conjunctiva or scleral icterus Neck no lymphadenopathy, supple and no JVD Chest Wall inspection of chest normal and palpation of chest normal Resp normal respiratory effort and clear to auscultation bilaterally Cardio regular rate, regular rhythm, S1 normal heart sound, S2 normal heart sound and no murmurs GI normal to inspection, nondistended, normoactive bowel sounds, non-distended and no masses; Negative for non-tender or hepatosplenomegaly Palpation: soft and tender epigastric; Negative for rebound tenderness present Back/Spine no CVA tenderness Extremity normal to inspection General Extremety ED: Negative for tenderness Neuro oriented x3 and CN's II-XII intact bilaterally Sensorium / Orientation: alert Psych mental status grossly normal Skin no rashes or lesions noted, no wounds and skin turgor normal General Skin Exam: elasticity normal; Negative for jaundice or pallor MDM MDM MDM Narrative Medical decision making narrative: Suspect patient has viral illness. He has not with poor p.o. intake decreased urine output and the fact that she is elderly with significant medical problems will obtain BMP to assess electrolytes and specifically hypokalemia as well as renal function CO2 anion gap. CBC was obtained assess white count differential. Patient did receive 1 L of normal saline. Second liter of normal saline was ordered after return of blood work. Patient was reassessed again at 1554. She is now sitting up smiling. She was instructed to contact her doctor for repeat blood work in 4 to 5 days. Lab Data Attestation: I reviewed the patient's lab results. Lab results narrative: CBC is unremarkable. Electrolyte panel reveals slight elevation in potassium of 5.3. There is no EKG changes to suggest chest hyperkalemia. BUN and creatinine are slightly elevated compared to baseline. BUN is 48 and creatinine is 1.74. Labs: Laboratory Results - last 24 hr 01/13/24 13:50 WBC 10.1 RBC 3.93 L Hgb 12.3 Hct 38.6 MCV 98.2 MCH 31.3 MCHC 31.9 L RDW Std Deviation 50.9 H RDW Coeff of Denise 14.1 Plt Count 305 MPV 9.6 Immature Gran % (Auto) 0.900 Neut % (Auto) 79.0 H Lymph % (Auto) 9.2 L Carbon % (Auto) 10.6 H Eos % (Auto) 0.0 Baso % (Auto) 0.3 Absolute Neuts (auto) 8.0 H Absolute Lymphs (auto) 0.93 Nucleated RBC % 0.3 Sodium 135 L Potassium 5.3 H Chloride 103 Carbon Dioxide 19.0 L Anion Gap 13 BUN 48 H Creatinine 1.74 H Estim Creat Clear Calc 29.20 Est GFR (MDRD) Af Amer 37 L Est GFR (MDRD) Non-Af 30 L BUN/Creatinine Ratio 27.6 H Glucose 97 Calcium 9.2 Discharge Plan Triage Chief Complaint: Cold Sx ED Provider: Josef Padilla Dx/Rx/DC Orders Clinical Impression: Systemic viral illness, Nausea vomiting and diarrhea, Acute kidney injury, Ketosis Instructions: ED Viral Syndrome (Adult), ED Renal Insufficiency Prescriptions: No Action clonidine HCl 0.1 mg tablet 0.1 mg PO BID metoprolol succinate 200 mg tablet extended release 24 hr 200 mg PO DAILY tramadol 50 mg tablet 50 mg PO BID PRN (Reason: Pain) leucovorin calcium 15 mg tablet 15 mg PO MO potassium chloride [Klor-Con M20] 20 mEq tablet,ER particles/crystals 20 meq PO DAILY methotrexate sodium 2.5 mg tablet 12.5 mg PO QWEEK gabapentin 100 mg capsule 200 mg PO QHS Eliquis 5 mg tablet 5 mg PO BID bupropion HCl 150 mg tablet extended release 24 hr 150 mg PO DAILY calcium 500 mg Tablet 1,000 mg PO DAILY cholecalciferol (vitamin D3) [Vitamin D3] 50 mcg (2,000 unit) Capsule 50 mcg PO DAILY oxycodone 5 mg capsule 5 mg PO Q4H PRN (Reason: pain) 7 Days Qty: 42 0RF Primary Care Provider: Danica Perez Referrals: Danica Perez MD [Primary Care Provider] - 3-5 Days (Patient will need a repeat BMP to assess her BUN and creatinine which were elevated at 48 and 1.74. This is slightly above her baseline.) Activity Restrictions/Additional Instructions: Contact your doctors office in the morning to have blood work first part of next week. You will need a BMP, basic metabolic panel, to assess your renal function. Print Language: [place] Disposition Disposition: Home, Self Care
[2024-01-13 17:05] VITALS: BP 114/77; PULSE 74; RESP 16; TEMP 36.6; O2SAT 99
== END 2024-01-13 17:18 | disposition home or self-care (01) ==
PROVIDERS: Emergency Provider Emergency Medicine; PCP Family Medicine Sports Medicine; Referring Provider Emergency Medicine; Visit Provider Emergency Medicine
DX: B34.9 Viral infection, unspecified (principal); E88.89 Other specified metabolic disorders; I48.91 Unspecified atrial fibrillation; N18.30 Chronic kidney disease, stage 3 unspecified; N17.9 Acute kidney failure, unspecified; I12.9 Hypertensive chronic kidney disease with stage 1 through stage 4 chronic kidney disease, or unspecified chronic kidney disease; Z79.01 Long term (current) use of anticoagulants; Z79.899 Other long term (current) drug therapy
CPT/HCPCS: 80048; 85025; 96360; 96361; 99283; J7030; A4216